=== PATIENT | female | born 1975 | race Caucasian/White ===

== ENCOUNTER 2021-05-22 23:53 | Inpatient (IN) | payer MEDICAID, OTHER ==
[~2021-05-22] VITALS: Ht 165.1 cm; Wt 63.5 kg
[2021-05-23] MEDS ORDERED: VANCOMYCIN IV 1,000 MG in IV DEXTROSE 5% 250 ML IV ONE (00:15)
[2021-05-23] MEDS ORDERED: PIPERACILLIN SODIUM/TAZOBACTAM 3.375 G in IV DEXTROSE 5% 50 ML IV ONE (00:15)
[2021-05-23] MEDS ORDERED: IV NORMAL SALINE 1000 ML BAG IV ONE (00:15)
[2021-05-23] MEDS ORDERED: GABA600T12 GT (00:19)
[2021-05-23] MEDS ORDERED: PIPERACILLIN/TAZOBACTAM/D5W 50 ML IV ONE ×2 (00:28→05:26)
[2021-05-23] MEDS ORDERED: VANCOMYCIN IV 200 ML ONE (00:28)
[2021-05-23 00:46] LABS: HEMATOCRIT 25.4 % (31.2-41.9); MEAN CORPUSCULAR HEMOGLOBIN 24.6 uug (24.7-32.8); MEAN CORPUSCULAR VOLUME 77.5 fL (75.5-95.3); PLATELET COUNT (AUTO) 333 K/uL (179-408)
--- NOTE | 2021-05-23 01:15 | NUR ---
Lilo elliott in [facility] - 05/23/21 at [address] Thibodeaux on panel call with Xander Ontiveros DNP.
[2021-05-23 01:19] LABS: ALANINE AMINOTRANSFERASE 47 U/L (14-59); ALKALINE PHOSPHATASE 178 U/L (50-136); ASPARTATE AMINOTRANSFERASE 39 U/L (15-37); BILIRUBIN,DIRECT 0.1 mg/dL (0.0-0.2); BILIRUBIN,TOTAL 0.4 mg/dL (0.2-1.0); CARBON DIOXIDE 36 mmol/L (21-32); CHLORIDE 98 mmol/L (98-107); CREATININE 0.4 mg/dL (0.6-1.3); GLUCOSE 113 mg/dL (74-106); TOTAL PROTEIN, SERUM 7.4 g/dL (6.4-8.2); UREA NITROGEN, BLOOD 14 mg/dL (7-18)
[2021-05-23 01:29] LABS: *BILIRUBIN,URIN NEGATIVE (NEGATIVE); *BLOOD, URINE NEGATIVE (NEGATIVE); *CLARITY,URINE CLOUDY (CLEAR); *COLOR,URINE YELLOW (YELLOW); *KETONES,URINE NEGATIVE (NEGATIVE); LEUKOCYTE ESTERASE ,URINE NEGATIVE (NEGATIVE); NITRITE, URINE POSITIVE (NEGATIVE); UGLUCOSE NEGATIVE (NEGATIVE)
--- NOTE | 2021-05-23 01:30 | NUR ---
RT at bedside to clean and suction trach of patient.
[2021-05-23 01:41] LABS: BACTERIA,URINE MANY /HPF (NONE SEEN); RBC,URINE 0-3 /HPF (0-3); SQUAMOUS EPITHELIAL CELL,UR FEW /HPF (NONE SEEN); WBC,URINE 0-3 /HPF (0-3)
[2021-05-23] MEDS ORDERED: ACET-73 GT (02:01)
[2021-05-23] MEDS ORDERED: ACET325T53 GT (02:01)
[2021-05-23] MEDS ORDERED: IPRA3AMP22 IH (02:01)
[2021-05-23] MEDS ORDERED: ONDA4TAB5 GT (02:01)
[2021-05-23] MEDS ORDERED: APIX5TAB4 GT (02:01)
[2021-05-23] MEDS ORDERED: OMEP20CA15 GT (02:01)
[2021-05-23] MEDS ORDERED: SODI1TAB3 PO (02:01)
[2021-05-23] MEDS ORDERED: SENN-261 GT (02:01)
[2021-05-23] MEDS ORDERED: MORP30TA PO (02:01)
[2021-05-23] MEDS ORDERED: DOCU100C36 GT (02:01)
[2021-05-23] MEDS ORDERED: FERR325T28 GT (02:01)
[2021-05-23] MEDS ORDERED: MULT-594 GT (02:01)
[2021-05-23] MEDS ORDERED: ASCO500P18 GT (02:01)
[2021-05-23] MEDS ORDERED: MODA100T29 GT (02:01)
[2021-05-23] MEDS ORDERED: INSU100V28 (02:01)
[2021-05-23] MEDS ORDERED: METO25TA6 GT (02:01)
[2021-05-23] MEDS ORDERED: BISA10SU61 RC (02:01)
[2021-05-23] MEDS ORDERED: CHLO473M3 PO (02:01)
[2021-05-23] MEDS ORDERED: ZINC220C6 GT (02:01)
[2021-05-23] MEDS ORDERED: OXYC10TA49 GT (02:01)
[2021-05-23] MEDS ORDERED: Z GUARD REMEDY PASTE 57 GM TUBE TOP PRN (02:15)
[2021-05-23] MEDS ORDERED: ACETAMINOPHEN 650 MG SUPP.RECT RC PRN (02:15)
[2021-05-23] MEDS ORDERED: ONDANSETRON 4 MG/2 ML VIAL IV PRN (02:15)
--- NOTE | 2021-05-23 02:24 | NUR ---
Patient will be assigned to room 317.
--- NOTE | 2021-05-23 02:38 | NUR ---
Report given to LAURITA Jacinto.
--- NOTE | 2021-05-23 03:10 | NUR ---
Pt. admitted to telemetry 317, under care of BRUCE Kent. Belongs List completed
[2021-05-23] MEDS: ENOXAPARIN SODIUM 40 MG/0.4 ML DISP.SYRIN SQ SCH ×2 (04:26→21:32)
[2021-05-23] MEDS ORDERED: PIPERACILLIN SODIUM/TAZOBACTAM 3.375 G in IV DEXTROSE 5% 50 ML IV SCH (06:00)
--- NOTE | 2021-05-23 06:56 | NUR ---
Admitted 45 y/o female from ER to Tele. She is non-verbal, responds to touch/pain, bedrest. On trach to mask at 5 lpm, saturating at 100%. Kept HOB elevated. Trach suctioned with secretions noted, dressing and mask changed by RT, G-tube remains intact. Skin assessment done, pictures taken, and placed in chart. Kept clean, dry, and comfortable. All needs attended. Will endorse for continuity of care.
[2021-05-23 08:27] VITALS: BP 117/64
[2021-05-23] MEDS: PANTOPRAZOLE SODIUM 40 MG VIAL IV SCH (08:28)
--- NOTE | 2021-05-23 09:50 | NUR ---
MORNING CARE PROVIDED TO PATIENT, TOLERATED WELL. SHE IS AWAKE, BUT IS NOT VERBALLY RESPONSIVE. HOWEVER, APPEARS TO RESPOND TO BOTH VERBAL/TACTILE STIMULI BY LOOKING AT NURSE OR MOVING ARMS. REQUIRES FREQUENT SUCTIONING ON TRACH AND ORAL, WITH ORDERS OF Q2H ORAL CARE. AT THIS TIME, DR. MONTES NOTIFIED ABOUT ASYMPTOMATIC SINUS TACHYCARDIA ON MONITOR FROM 110-120, REST OF VITALS NORMAL RECORDED. ALSO REPORTED ABOUT COVID-19 CONCERNS AND SLIGHTLY ELEVATED TROPONIN 0.105. RECEIVED ORDERS FOR COVID 19 PCR, TROPONIN EVERY 6H, CARDIO CONSULT AND NS 75 CC/HR. NOTED AND WILL CARRY OUT.
[2021-05-23] MEDS: IV NS 1000 ML 1,000 ML IV PRN (10:30)
--- NOTE | 2021-05-23 11:20 | NUR ---
DR MONTES NOTIFIED THAT PATIENT STILL PENDING MED RECON/GT FEEDING/INSULIN PROTOCOLS. ORDERED NUTREN 2.0 55 CC/HR X Addendum: 05/23/21 at 1706 by RUT FRIAS RN 20 HOURS. WITH REGULAR INSULIN SLIDING SCALE MOD DOSE EVERY 6 HOURS. NOTED AND WILL CARRYOUT.
[2021-05-23] MEDS ORDERED: DEXTROSE 50% 50 ML DISP.SYRIN IV PRN (11:30)
[2021-05-23 11:34] VITALS: BP 121/66
[2021-05-23] MEDS ORDERED: NUTREN 2.0 1,000 ML LIQUID GT PRN (12:00)
[2021-05-23] MEDS: PIPERACILLIN SODIUM/TAZOBACTAM 3.375 G in IV DEXTROSE 5% 50 ML IV SCH ×3 (12:59→23:07)
[2021-05-23] MEDS: NUTREN 2.0 1,000 ML LIQUID GT PRN (12:59)
[2021-05-23] MEDS: BLOOD SUGAR DIAGNOSTIC 1 EACH STRIP VI SCH ×3 (12:59→23:38)
[2021-05-23] MEDS: VANCOMYCIN IV 750 MG in IV DEXTROSE 5% 250 ML IV SCH (14:00)
[2021-05-23 14:52] VITALS: BP 121/64
--- NOTE | 2021-05-23 15:00 | NUR ---
RT NOTIFIED TO CHECK ON PT, SINCE FREQUENT SUCTIONING IS REQUIRED. RT APPLIED HUMIDIFIER ON O2, AND CONNECTED TRACH TO SUCTION. PT IS TOLERATING THIS WELL.
--- NOTE | 2021-05-23 19:00 | NUR ---
PATIENT EYES OPEN, HOB ELEVATED, NO S/S OF SOB, SUCTIONED FREQUENTLY DUE TO EXTRA TRACHEAL SECRETIONS, YELLOW COLOR SPUTUM, ON GTF TOLERATE WELL NO RESIDUAL NOTED, NO NAUSEA NO VOMITING NOTED, LEFT ARM SWELLING KEPT IT ELEVATED WITH PILLOW, KEPT BILATERAL FEET ELEVATED WITH PILLOW, NOTED WITH FACIAL GRIMACY, SON AT BEDSIDE, KEPT COMFORTABLE.
[2021-05-23 20:18] VITALS: BP 132/67
--- NOTE | 2021-05-23 22:58 | NUR ---
PATIENT HAS FACIAL GRIMACY, REQUEST TO AGUEDA KERZUMA TYLENOL VIA GT. WITH ORDER.
[2021-05-23] MEDS: ACETAMINOPHEN 650 MG/20.3 ML LIQUID UDC GT PRN (23:07)
[2021-05-23] MEDS: INSULIN REGULAR, HUMAN 300 UNIT/3 ML VIAL SQ PRN (23:46)
[2021-05-24] VITALS (9 sets, daily range): BP systolic 126–138; BP diastolic 59–85
[2021-05-24] MEDS: VANCOMYCIN IV 750 MG in IV DEXTROSE 5% 250 ML IV SCH (00:02)
--- NOTE | 2021-05-24 04:23 | NUR ---
PATIENT TROPONIN 0.080 LAST MIDNIGHT, DR MONTES ORDERED TO REPEAT TROPONIN IN AM IF TROPONIN STILL HIGH PER INSTRUCTIONS.
[2021-05-24] MEDS: PIPERACILLIN SODIUM/TAZOBACTAM 3.375 G in IV DEXTROSE 5% 50 ML IV SCH ×4 (05:27→23:21)
[2021-05-24] MEDS: BLOOD SUGAR DIAGNOSTIC 1 EACH STRIP VI SCH ×4 (06:00→23:37)
[2021-05-24] MEDS: INSULIN REGULAR, HUMAN 300 UNIT/3 ML VIAL SQ PRN ×3 (06:32→23:38)
[2021-05-24 07:26] LABS: MEAN CORPUSCULAR HEMOGLOBIN 24.5 uug (24.7-32.8); MEAN CORPUSCULAR VOLUME 76.9 fL (75.5-95.3); PLATELET COUNT (AUTO) 293 K/uL (179-408)
[2021-05-24 07:57] LABS: HEMATOCRIT 20.8 % (31.2-41.9)
--- NOTE | 2021-05-24 08:00 | NUR ---
CALLED [facility] FOR CRITICAL LAB RESULT DOCUMENTED ON FLOWSHEET/ON HOLD.
[2021-05-24 08:05] LABS: THYROID STIMULATING HORMONE 1.934 mIU/mL (0.358-3.740)
--- NOTE | 2021-05-24 08:14 | NUR ---
DR MONTSE NOTIFIED ABOUT HEMOGLOBIN/HEMATOCRIT CRITICAL RESULTS FROM LAB. WITH NEW ORDERS TO TRANSFUSE PRBC X 1 UNIT/OBTAIN CONSENT FROM FAMILY. ALSO NOTIFIED ABOUT TROPONIN LEVELS/PENDING CARDIO CONSULT/PT SINIS TACHYCARDIA, ACKNOWLEDGED, NO NEW ORDERS.
[2021-05-24 08:25] LABS: ALANINE AMINOTRANSFERASE 36 U/L (14-59); ALKALINE PHOSPHATASE 145 U/L (50-136); ASPARTATE AMINOTRANSFERASE 22 U/L (15-37); BILIRUBIN,TOTAL 0.3 mg/dL (0.2-1.0); CARBON DIOXIDE 36 mmol/L (21-32); CHLORIDE 100 mmol/L (98-107); CREATININE 0.3 mg/dL (0.6-1.3); GLUCOSE 144 mg/dL (74-106); PHOSPHOROUS 3.9 mg/dL (2.5-4.9); POTASSIUM 3.4 mmol/L (3.5-5.1); TOTAL PROTEIN, SERUM 6.3 g/dL (6.4-8.2); UREA NITROGEN, BLOOD 13 mg/dL (7-18)
[2021-05-24 08:41] LABS: CHOLESTEROL 150 mg/dL (<200); HDL CHOLESTEROL 35 mg/dL (40-60); TRIGLYCERIDES 134 MG/DL (30-150)
[2021-05-24] MEDS ORDERED: POTASSIUM CHLORIDE 20 MEQ POWDER PACKET GT ONE (09:15)
[2021-05-24] MEDS: PANTOPRAZOLE SODIUM 40 MG VIAL IV SCH (09:25)
--- NOTE | 2021-05-24 09:40 | NUR ---
GEN/ROGELIO AT BEDSIDE. INFORMED CONSENT FOR BLOOD TRANSFUSION OBTAINED.WITNESSED BY DOCUMENTING RN. LAB WAS NOTIFIED. PER LAB, 2ND TYPE AND SCREEN IS PENDING. BLOOD BANK WILL BE IN THE HOSPITAL THIS PM. PT HAS STABLE VS, NO APPARENT ACTIVE BLEEDING AT THIS TIME.
[2021-05-24] MEDS: NUTREN 2.0 1,000 ML LIQUID GT PRN (12:33)
[2021-05-24] MEDS ORDERED: NUTREN 2.0 1,000 ML LIQUID GT PRN (13:39)
[2021-05-24] MEDS: VANCOMYCIN IV 1,000 MG in IV DEXTROSE 5% 250 ML IV SCH ×2 (13:54→22:06)
[2021-05-24 14:38] LABS: EOSINOPHILS % (MANUAL) 3 % (0-8); LYMPHOCYTES % (MANUAL) 16 % (20-40); MONOCYTES % (MANUAL) 7 % (2-10); NEUTROPHILS % (MANUAL) 74 % (42-75)
--- NOTE | 2021-05-24 19:15 | NUR ---
RECEIVED PATIENT AWAKE HOB ELEVATED, NO S/S OF SOB NO S/S OF CHEST PAIN, TELE MONITOR SINUS TACHY 126, SAT 100% AT 5LITERS. PATIENT CURRENT HAVING BLOOD TRANSFUSION, TOLERATE WELL NO SOB NO CHEST CONGESTION NOTED. PATIENT HAS NO S/S OF PAIN AT THIS TIME.
--- NOTE | 2021-05-24 20:23 | NUR ---
PATIENT SEEN BY RT AND OXYGEN LEVEL AT 3 LITERS PER MIN, SAT 100%, TRANSFUSED 1 UNIT PRBC TOLERATE WELL, NO ADVERSE REACTION NOTED, CONT TO MONITOR.
--- NOTE | 2021-05-24 20:37 | NUR ---
TRANSFUSED 1 UNIT PRBC TOLERATE WELL NO ADVERSE REACTION NOTED, CONT TO MONITOR.
[2021-05-24] MEDS: ACETAMINOPHEN 650 MG/20.3 ML LIQUID UDC GT PRN (22:06)
[2021-05-24] MEDS: DOCUSATE SODIUM 100 MG/10 ML LIQUID UDC GT SCH (22:07)
[2021-05-24] MEDS: ENOXAPARIN SODIUM 40 MG/0.4 ML DISP.SYRIN SQ SCH (22:40)
[2021-05-25] VITALS: BP 139/49
[2021-05-25] MEDS: PIPERACILLIN SODIUM/TAZOBACTAM 3.375 G in IV DEXTROSE 5% 50 ML IV SCH ×3 (05:18→17:24)
[2021-05-25 06:00] VITALS: BP 130/79
[2021-05-25] MEDS: BLOOD SUGAR DIAGNOSTIC 1 EACH STRIP VI SCH ×4 (06:42→23:32)
[2021-05-25 06:45] LABS: CARBON DIOXIDE 36 mmol/L (21-32); CHLORIDE 101 mmol/L (98-107); CREATININE 0.3 mg/dL (0.6-1.3); GLUCOSE 147 mg/dL (74-106); POTASSIUM 3.6 mmol/L (3.5-5.1); UREA NITROGEN, BLOOD 10 mg/dL (7-18)
[2021-05-25] MEDS: VANCOMYCIN IV 1,000 MG in IV DEXTROSE 5% 250 ML IV SCH (07:06)
[2021-05-25] MEDS: PANTOPRAZOLE SODIUM 40 MG VIAL IV SCH (08:28)
[2021-05-25] MEDS: DOCUSATE SODIUM 100 MG/10 ML LIQUID UDC GT SCH ×2 (08:28→20:30)
[2021-05-25 12:00] VITALS: BP 141/81
[2021-05-25] MEDS: INSULIN REGULAR, HUMAN 300 UNIT/3 ML VIAL SQ PRN ×3 (12:16→23:35)
--- NOTE | 2021-05-25 15:00 | NUR ---
AWAKE NON VERBAL ALL NEEDS ANTICIPATED AND SATISFIED MAXIMUM ASSIST FOR ALL ADL HOB UP CONTINUE ON ANTIBIOTICS ORDERED WITH NO ADVERSE OR ALLERGIC REACTIONS AT THIS TIME LEFT ARM SWOLLEN ESPECIALLY THE HAND AND WITH NECROTIC FINGERS ELEVATED ON THE PILLOW LEFT LEG TOES ALSO NECROTIC GENERAL CONDITION IS POOR WILL CONTINUE TO OBSERVE.
[2021-05-25 16:17] VITALS: BP 135/66
[2021-05-25] MEDS: VANCOMYCIN IV 1,250 MG in IV DEXTROSE 5% 250 ML IV SCH ×2 (16:19→23:13)
[2021-05-25 17:48] LABS: CARBON DIOXIDE 33 mmol/L (21-32); CHLORIDE 101 mmol/L (98-107); CREATININE 0.4 mg/dL (0.6-1.3); GLUCOSE 150 mg/dL (74-106); POTASSIUM 3.5 mmol/L (3.5-5.1); UREA NITROGEN, BLOOD 9 mg/dL (7-18)
--- NOTE | 2021-05-25 18:00 | NUR ---
FIRST STEP MATTRASS APPLIED TO BED ORDERED PATIENT TURNED AND REPOSITIONED Q2H GT FEEDINGS IN PROGRESS TOLERATED WELL TRACH INTACT CONNECTED TO O2 QT 3L WITH NO S/S OF SHORTNESS OF BREATH SUCTIONED NEEDED NOT IN DISTRESS AT THIS TIME.
--- NOTE | 2021-05-25 19:30 | NUR ---
RECEIVED PT IN NO ACUTE DISTRESS. IV INTACT. PT IN FIRST STEP MATTRESS. PT TOLERATING GTUBE FEEDING. PT ON 3L OXYGEN . SAFETY AND COMFORT PROVIDED. WILL CONTINUE TO MONITOR.
--- NOTE | 2021-05-25 19:35 | NUR ---
SON AT BEDSIDE.
[2021-05-25 20:21] VITALS: BP 133/64
[2021-05-25] MEDS: ENOXAPARIN SODIUM 40 MG/0.4 ML DISP.SYRIN SQ SCH (20:31)
[2021-05-26] VITALS: BP 144/89
[2021-05-26] MEDS: PIPERACILLIN SODIUM/TAZOBACTAM 3.375 G in IV DEXTROSE 5% 50 ML IV SCH ×4 (00:22→21:26)
[2021-05-26 01:25] LABS: *OCCULT BLOOD STOOL POSITIVE (NEGATIVE)
[2021-05-26] MEDS: ACETAMINOPHEN 650 MG/20.3 ML LIQUID UDC GT PRN (02:11)
--- NOTE | 2021-05-26 02:15 | NUR ---
at 0211h Tylenol 650mg prn given for pt for pain. Pt had facial grimace as a sign of pain. Will continue to monitor.
[2021-05-26] MEDS: IV NS 1000 ML 1,000 ML IV PRN (02:20)
[2021-05-26 04:15] VITALS: BP 116/64
[2021-05-26] MEDS: BLOOD SUGAR DIAGNOSTIC 1 EACH STRIP VI SCH (05:49)
[2021-05-26] MEDS: INSULIN REGULAR, HUMAN 300 UNIT/3 ML VIAL SQ PRN (06:18)
--- NOTE | 2021-05-26 06:28 | NUR ---
PT SLEPT INTERMITTENTLY. PT IN NO ACUTE DISTRESS. PRESCRIBED MEDICATION GIVEN AND PT TOLERATED IT WELL. PT TURNED AND REPOSITIONED. PT PRN SUCTIONING NEEDEDSAFETY AND COMFORT PROVIDED. ALL NEEDS ARE MET. WILL ENDORSE TO INCOMING NURSE FOR CONTINUITY OF CARE.
[2021-05-26 06:33] LABS: HEMATOCRIT 27.3 % (31.2-41.9); MEAN CORPUSCULAR HEMOGLOBIN 24.8 uug (24.7-32.8); MEAN CORPUSCULAR VOLUME 78.6 fL (75.5-95.3); PLATELET COUNT (AUTO) 294 K/uL (179-408)
[2021-05-26 06:44] LABS: CARBON DIOXIDE 34 mmol/L (21-32); CHLORIDE 105 mmol/L (98-107); CREATININE 0.4 mg/dL (0.6-1.3); GLUCOSE 171 mg/dL (74-106); PHOSPHOROUS 4.1 mg/dL (2.5-4.9); UREA NITROGEN, BLOOD 8 mg/dL (7-18)
--- NOTE | 2021-05-26 08:00 | NUR ---
PT nonverbal. Awaiting wound care consult. Pt is in no acute distress. Call light is within reach. Pt on I bed. Gangrene noted on LEFT HAND, L Great toed, and RIGHT FOOT. Heel FLOATED. Turn pt q 2 hrs.
--- NOTE | 2021-05-26 09:00 | NUR ---
both iv site to right wrist and iv site to right hand infiltrated and removed, applied ice to both sites.
[2021-05-26] MEDS: DOCUSATE SODIUM 100 MG/10 ML LIQUID UDC GT SCH ×2 (09:37→21:26)
[2021-05-26] MEDS: VANCOMYCIN IV 1,250 MG in IV DEXTROSE 5% 250 ML IV SCH (09:37)
[2021-05-26] MEDS: PANTOPRAZOLE SODIUM 40 MG VIAL IV SCH (10:03)
--- NOTE | 2021-05-26 10:56 | NUR ---
WOUND CARE CONSULT: PT PRESENTS WITH DRY NECROTIC TISSUE TO RT FOOT, LEFT HAND AND LEFT GREAT TOE, PRESENT ON ADMISSION. NO DRAINAGE NOTED. SURGICAL AND PODIATRY CONSULTS CALLED TO DR MORE CRISTOBAL AND DR PROCTOR. SCARRING NOTED TO POSTERIOR HEAD, PRESENT ON ADMISSION. RECOMMENDATIONS MADE FOR SKIN PROTECTION. DISCUSSED WITH NURSING STAFF. PT IS ON FIRST STEP BASHIR HYLTON AIRLOSS MATTREBIA. IN AGREEMENT WITH PLAN OF CARE.
[2021-05-26 11:53] VITALS: BP 141/80
[2021-05-26] MEDS ORDERED: POTASSIUM CHLORIDE 20 MEQ POWDER PACKET GT ONE ×2 (12:15→16:00)
[2021-05-26] MEDS: GENTAMICIN SULFATE INJ 440 MG in IV DEXTROSE 5% 250 ML IV SCH (12:51)
[2021-05-26 15:56] VITALS: BP 100/79
--- NOTE | 2021-05-26 17:00 | NUR ---
IV site to right wrist infiltrated, ice applied to site. Dr. Gaming made aware with order for midline, midline order in place. Pending midline insertion.
[2021-05-26] MEDS: NUTREN 2.0 1,000 ML LIQUID GT PRN (17:17)
--- NOTE | 2021-05-26 17:30 | NUR ---
Notified DR ellis pt'v iv infiltrated attempted to restart IV unsuccessful. Per DR GARCIA MIDLINE insertion. Notified fur dressing supervisor we need picc line nurse to come in and insert midline.
--- NOTE | 2021-05-26 19:30 | NUR ---
RECEIVED PT IN NO ACUTE DISTRESS. GTUBE FEEDING TOLERATING WELL. OXYGEN AT 3L . PT ON AIR MATTRESS. SAFETY AND COMFORT PROVIDED. WILL CONTINUE TO MONITOR.
[2021-05-26 20:13] VITALS: BP 130/79
--- NOTE | 2021-05-26 20:20 | NUR ---
MIDLINE WAS PUT ON RIGHT UPPER ARM 18G.
[2021-05-26] MEDS: ENOXAPARIN SODIUM 40 MG/0.4 ML DISP.SYRIN SQ SCH (21:26)
[2021-05-27 00:03] VITALS: BP 128/68
--- NOTE | 2021-05-27 01:32 | NUR ---
PATIENT ON CONT T/PIECE @ 3L/M VIA O2 TUBING TO FLOWMETER WITH HUMDIFIER CHANGED, PT STABLE, SUCTION PRN Maxi GUERREROP Addendum: 05/27/21 at 0134 by VICKI JUAREZ RT Amended: Links added.
[2021-05-27] MEDS: VANCOMYCIN IV 1,000 MG in IV DEXTROSE 5% 250 ML IV SCH ×3 (02:10→18:06)
[2021-05-27] MEDS: PIPERACILLIN SODIUM/TAZOBACTAM 3.375 G in IV DEXTROSE 5% 50 ML IV SCH ×4 (03:13→21:06)
[2021-05-27] MEDS: IV NS 1000 ML 1,000 ML IV PRN (03:47)
[2021-05-27 04:13] VITALS: BP 127/60
--- NOTE | 2021-05-27 06:35 | NUR ---
PT SLEPT INTERMITTENTLY. PT IN NO ACUTE RESPIRATORY DISTRESS. PRN SUCTION NEEDED. IV INTACT. DRESSING INTACT.PT TURNED AND REPOSITIONED. PRESCRIBED MEDICATION GIVEN AND PT TOLERATED IT WELL. SAFETY AND COMFORT PROVIDED. ALL NEEDS ARE MET. WILL CONTINUE TO MONITOR.
[2021-05-27 06:46] LABS: HEMATOCRIT 26.9 % (31.2-41.9); MEAN CORPUSCULAR VOLUME 77.7 fL (75.5-95.3); PLATELET COUNT (AUTO) 292 K/uL (179-408)
[2021-05-27 07:04] LABS: ALANINE AMINOTRANSFERASE 40 U/L (14-59); ALKALINE PHOSPHATASE 151 U/L (50-136); ASPARTATE AMINOTRANSFERASE 37 U/L (15-37); BILIRUBIN,TOTAL 0.5 mg/dL (0.2-1.0); CARBON DIOXIDE 37 mmol/L (21-32); CHLORIDE 106 mmol/L (98-107); CREATININE 0.5 mg/dL (0.6-1.3); GLUCOSE 150 mg/dL (74-106); POTASSIUM 3.6 mmol/L (3.5-5.1); UREA NITROGEN, BLOOD 12 mg/dL (7-18)
[2021-05-27] MEDS: DOCUSATE SODIUM 100 MG/10 ML LIQUID UDC GT SCH ×2 (08:12→21:05)
[2021-05-27] MEDS: PANTOPRAZOLE SODIUM 40 MG VIAL IV SCH (08:12)
[2021-05-27 11:32] VITALS: BP 117/81
[2021-05-27] MEDS ORDERED: BISACODYL 10 MG SUPP.RECT RC PRN (12:30)
[2021-05-27] MEDS ORDERED: ALBUTEROL SULFATE 2.5 MG/ 0.5 ML NEBU NEB PRN (12:30)
[2021-05-27] MEDS: GABAPENTIN 300 MG CAPSULE GT SCH ×2 (13:19→16:47)
[2021-05-27] MEDS: METOPROLOL TARTRATE 25 MG TABLET GT SCH ×2 (13:20→21:05)
[2021-05-27] MEDS: GENTAMICIN SULFATE INJ 440 MG in IV DEXTROSE 5% 250 ML IV SCH (13:50)
[2021-05-27 16:00] VITALS: BP 137/80
[2021-05-27] MEDS: ASCORBIC ACID 500 MG TABLET GT SCH (16:47)
[2021-05-27] MEDS: NUTREN 2.0 1,000 ML LIQUID GT PRN (16:59)
[2021-05-27] MEDS ORDERED: MORPHINE SULFATE IR 30 MG TABLET PO PRN (17:00)
--- NOTE | 2021-05-27 18:56 | NUR ---
PT IN NO ACUTE RESPIRATORY DISTRESS. PRN SUCTION NEEDED. IV INTACT. DRESSING INTACT.PT TURNED AND REPOSITIONED. PRESCRIBED MEDICATION GIVEN AND PT TOLERATED IT WELL. SAFETY AND COMFORT PROVIDED. ALL NEEDS ARE MET. WILL ENDORSE TO INCOMING NURSE FOR CONTINUITY OF CARE
[2021-05-27 20:00] VITALS: BP 111/66
[2021-05-27] MEDS: ENOXAPARIN SODIUM 40 MG/0.4 ML DISP.SYRIN SQ SCH (21:06)
[2021-05-28] VITALS: BP 121/80
[2021-05-28] MEDS: IV NS 1000 ML 1,000 ML IV PRN ×2 (01:19→14:54)
[2021-05-28] MEDS: VANCOMYCIN IV 1,000 MG in IV DEXTROSE 5% 250 ML IV SCH ×2 (02:53→15:38)
[2021-05-28 04:00] VITALS: BP 131/68
[2021-05-28] MEDS: PIPERACILLIN SODIUM/TAZOBACTAM 3.375 G in IV DEXTROSE 5% 50 ML IV SCH ×4 (04:29→22:08)
--- NOTE | 2021-05-28 05:48 | NUR ---
Pt slept throughout the night. No distress noted. T-piece connected to 3L of oxygen. Closed suctioned as needed. IV site intact. No other issues or concerns at this time, will endorse to day shift.
[2021-05-28 08:00] VITALS: BP 119/69
[2021-05-28] MEDS: DOCUSATE SODIUM 100 MG/10 ML LIQUID UDC GT SCH ×2 (09:37→20:27)
[2021-05-28] MEDS: PANTOPRAZOLE SODIUM 40 MG VIAL IV SCH (09:37)
[2021-05-28] MEDS: ASCORBIC ACID 500 MG TABLET GT SCH ×2 (09:38→16:22)
[2021-05-28] MEDS: MULTIVITAMINS,THERAPEUTIC TABLET GT SCH (09:38)
[2021-05-28] MEDS: ZINC SULFATE 220 MG CAPSULE GT SCH (09:38)
[2021-05-28] MEDS: SENNOSIDES 1 TABLET GT SCH (09:38)
[2021-05-28] MEDS: MODAFINIL 100 MG TABLET GT SCH (09:38)
[2021-05-28] MEDS: FERROUS SULFATE 300 MG/5 ML LIQUID UDC GT SCH (09:38)
[2021-05-28] MEDS: METOPROLOL TARTRATE 25 MG TABLET GT SCH ×2 (09:39→20:28)
[2021-05-28] MEDS: GABAPENTIN 300 MG CAPSULE GT SCH ×3 (09:40→16:22)
[2021-05-28 11:43] VITALS: BP 143/80
[2021-05-28] MEDS: NUTREN 2.0 1,000 ML LIQUID GT PRN (13:05)
[2021-05-28] MEDS: GENTAMICIN SULFATE INJ 440 MG in IV DEXTROSE 5% 250 ML IV SCH (13:51)
[2021-05-28] MEDS: ACETAMINOPHEN 650 MG/20.3 ML LIQUID UDC GT PRN (14:04)
[2021-05-28 16:00] VITALS: BP 112/69
--- NOTE | 2021-05-28 18:34 | NUR ---
Patient is alert, able to nod when asked. Noted with dry gangrene to toes, right foot and fingers on the left hand. Bedbath done today, mouth care done every 2 hrs, closed suctioning done as needed, tolerated well. Dressing done to both feet as ordered. Consent obtained per MD order for the right foot transmetatarsal amputation, and left foot excisional debridement, Romero signed. Surgery is scheduled todayVanco result 20.5 - Vanco IV was adjusted per pharmacy protocol. IV line intact, midline to DAVE and peripheral line to the right hand, 20G. MD order NPO, per OR 8hrs prior to surgery. Kept patient comfortable and repositioned for perfusion. No distress identified. Frequent visual check done. Kept call light within reach. Assisted with ADLs. All needs attended. Kept environment safe. All due meds given as ordered. Will endorse to the next shift for continuity of care.
[2021-05-28 19:50] LABS: HEMATOCRIT 25.6 % (31.2-41.9); MEAN CORPUSCULAR HEMOGLOBIN 24.4 uug (24.7-32.8); MEAN CORPUSCULAR VOLUME 77.6 fL (75.5-95.3); PLATELET COUNT (AUTO) 311 K/uL (179-408)
[2021-05-28 20:00] VITALS: BP 126/66
[2021-05-28] MEDS: ENOXAPARIN SODIUM 40 MG/0.4 ML DISP.SYRIN SQ SCH (20:28)
[2021-05-29] VITALS (7 sets, daily range): BP systolic 122–137; BP diastolic 62–74
[2021-05-29] MEDS: VANCOMYCIN IV 1,000 MG in IV DEXTROSE 5% 250 ML IV SCH ×2 (03:33→14:17)
[2021-05-29] MEDS: PIPERACILLIN SODIUM/TAZOBACTAM 3.375 G in IV DEXTROSE 5% 50 ML IV SCH ×4 (05:30→22:33)
--- NOTE | 2021-05-29 06:23 | NUR ---
Pt slept intermittently throughout the night. Suctioned as needed. GTube feeding stopped at midnight to prepare for surgery today. Consent signed, checklist done. Pt is in no distress. IV site intact. Safety and comfort provided. Will endorse to day shift.
[2021-05-29 06:36] LABS: MEAN CORPUSCULAR HEMOGLOBIN 24.5 uug (24.7-32.8); MEAN CORPUSCULAR VOLUME 77.6 fL (75.5-95.3); PLATELET COUNT (AUTO) 297 K/uL (179-408)
[2021-05-29 06:57] LABS: BILIRUBIN,TOTAL 0.5 mg/dL (0.2-1.0); CREATININE 0.7 mg/dL (0.6-1.3); MAGNESIUM 2.3 mg/dL (1.8-2.4); PHOSPHOROUS 5.9 mg/dL (2.5-4.9); POTASSIUM 3.5 mmol/L (3.5-5.1); TOTAL PROTEIN, SERUM 7.1 g/dL (6.4-8.2)
[2021-05-29] MEDS ORDERED: LIDOCAINE 0.5% MPF 50 ML VIAL ONE (07:06)
[2021-05-29] MEDS ORDERED: POLYMYXIN B SULFATE 500,000 UNITS VIAL ONE (07:07)
[2021-05-29] MEDS ORDERED: BUPIVACAINE PF 0.5% 30 ML VIAL ONE (07:07)
--- NOTE | 2021-05-29 07:32 | NUR ---
TO OR VIA BED WITH STAFF FOR AMPUTATION RIGHT FOOT TRANSMETATARSAL O2 AT 4L VIA TRACH
[2021-05-29] MEDS ORDERED: FENTANYL CITRATE 100 MCG/2 ML AMPUL ONE (07:46)
[2021-05-29] MEDS: MODAFINIL 100 MG TABLET GT SCH (09:00)
[2021-05-29] MEDS: FERROUS SULFATE 300 MG/5 ML LIQUID UDC GT SCH (09:00)
[2021-05-29] MEDS: SENNOSIDES 1 TABLET GT SCH (09:00)
[2021-05-29] MEDS: MULTIVITAMINS,THERAPEUTIC TABLET GT SCH (09:00)
[2021-05-29] MEDS: ASCORBIC ACID 500 MG TABLET GT SCH ×2 (09:00→16:30)
[2021-05-29] MEDS: PANTOPRAZOLE ORAL SUSPENSION 40 MG SUSPDR.PKT GT SCH (09:00)
[2021-05-29] MEDS: ZINC SULFATE 220 MG CAPSULE GT SCH (09:00)
[2021-05-29] MEDS: GABAPENTIN 300 MG CAPSULE GT SCH ×3 (09:00→16:30)
[2021-05-29] MEDS: DOCUSATE SODIUM 100 MG/10 ML LIQUID UDC GT SCH ×2 (09:00→21:06)
[2021-05-29 09:11] LABS: HEMATOCRIT 24.1 % (31.2-41.9)
[2021-05-29] MEDS ORDERED: ALBUTEROL SULFATE 2.5 MG/3 ML NEBU ONE (09:24)
--- NOTE | 2021-05-29 09:55 | NUR ---
BACK FROM OR RECEIVED REPORT FROM OR STAFF
[2021-05-29] MEDS: METOPROLOL TARTRATE 25 MG TABLET GT SCH ×2 (10:05→21:06)
[2021-05-29] MEDS: GENTAMICIN SULFATE INJ 440 MG in IV DEXTROSE 5% 250 ML IV SCH (13:49)
[2021-05-29] MEDS: IV NS 1000 ML 1,000 ML IV PRN ×2 (13:56→13:58)
[2021-05-29 14:47] LABS: CARBON DIOXIDE 33 mmol/L (21-32); CHLORIDE 104 mmol/L (98-107); CREATININE 0.5 mg/dL (0.6-1.3); GLUCOSE 187 mg/dL (74-106); POTASSIUM 3.7 mmol/L (3.5-5.1); UREA NITROGEN, BLOOD 17 mg/dL (7-18); VANCOMYCIN,TROUGH 17.2 ug/mL (12.0-20.0)
--- NOTE | 2021-05-29 17:49 | NUR ---
CONTINUE WITH IV ANTIBIOTIC ORDERED NO REACTION NOTED. AFEBRILE, SR ON MONITOR
[2021-05-29] MEDS: ENOXAPARIN SODIUM 40 MG/0.4 ML DISP.SYRIN SQ SCH (21:11)
[2021-05-29] MEDS ORDERED: PIPERACILLIN/TAZOBACTAM/D5W 50 ML IV ONE (23:19)
[2021-05-30 00:02] VITALS: BP 141/69
[2021-05-30] MEDS: VANCOMYCIN IV 1,000 MG in IV DEXTROSE 5% 250 ML IV SCH ×2 (02:44→14:10)
[2021-05-30 04:20] VITALS: BP 148/71
[2021-05-30] MEDS: PIPERACILLIN SODIUM/TAZOBACTAM 3.375 G in IV DEXTROSE 5% 50 ML IV SCH ×3 (04:41→14:47)
--- NOTE | 2021-05-30 05:40 | NUR ---
Patient in bed.Awake non verbal with trach in place.No SOB. HOB elevated.Suctioned PRN.Bilateral feet with dressing intact clean and dry.S/p RT foot amputation and Lt foot debridement.Left hand noted with gangrene. Gtube in place with GT feeding running well. Patient incontinent. Pericare provided. Changed and repositioned patient.Midline on right upper arm intact with IVf infusing at 75cc/hr. Continue on ABT therapy as ordered.No a/r noted.
[2021-05-30 06:22] LABS: HEMATOCRIT 26.3 % (31.2-41.9); MEAN CORPUSCULAR HEMOGLOBIN 24.8 uug (24.7-32.8); MEAN CORPUSCULAR VOLUME 78.1 fL (75.5-95.3); PLATELET COUNT (AUTO) 293 K/uL (179-408)
[2021-05-30 07:06] LABS: BILIRUBIN,TOTAL 0.5 mg/dL (0.2-1.0); CREATININE 0.6 mg/dL (0.6-1.3); MAGNESIUM 2.7 mg/dL (1.8-2.4); PHOSPHOROUS 4.9 mg/dL (2.5-4.9); POTASSIUM 3.9 mmol/L (3.5-5.1); TOTAL PROTEIN, SERUM 7.4 g/dL (6.4-8.2)
--- NOTE | 2021-05-30 07:30 | NUR ---
RECEIVED PATIENT IN NO DISTRESS WITH EYES OPEN, WITH O2 AT 4L VIA TRACH SATURATING 98%, ST ON MONITOR, AFEBRILE
[2021-05-30 08:00] VITALS: BP_SYST 145; BP_SYST 153; BP_DIAS 68; BP_DIAS 74
[2021-05-30] MEDS: DOCUSATE SODIUM 100 MG/10 ML LIQUID UDC GT SCH ×2 (08:40→20:51)
[2021-05-30] MEDS: MODAFINIL 100 MG TABLET GT SCH (08:40)
[2021-05-30] MEDS: MULTIVITAMINS,THERAPEUTIC TABLET GT SCH (08:40)
[2021-05-30] MEDS: FERROUS SULFATE 300 MG/5 ML LIQUID UDC GT SCH (08:40)
[2021-05-30] MEDS: ZINC SULFATE 220 MG CAPSULE GT SCH (08:41)
[2021-05-30] MEDS: GABAPENTIN 300 MG CAPSULE GT SCH ×3 (08:41→17:00)
[2021-05-30] MEDS: PANTOPRAZOLE ORAL SUSPENSION 40 MG SUSPDR.PKT GT SCH (08:41)
[2021-05-30] MEDS: ASCORBIC ACID 500 MG TABLET GT SCH ×2 (08:41→17:00)
[2021-05-30] MEDS: METOPROLOL TARTRATE 25 MG TABLET GT SCH ×2 (08:43→20:51)
[2021-05-30] MEDS: SENNOSIDES 1 TABLET GT SCH (08:44)
[2021-05-30] MEDS: IV NS 1000 ML 1,000 ML IV PRN (09:26)
[2021-05-30] MEDS ORDERED: METOPROLOL TARTRATE 25 MG TABLET GT ONE (10:30)
--- NOTE | 2021-05-30 12:00 | NUR ---
KEPT PATIENT COMFORTABLE POST AM CARE. CONTINUE WITH IV ANTIBIOTICS. NO REACTION NOTED
[2021-05-30] MEDS: GENTAMICIN SULFATE INJ 440 MG in IV DEXTROSE 5% 250 ML IV SCH (12:49)
--- NOTE | 2021-05-30 14:04 | NUR ---
PATIENT PREPPED FOR CT ABD/PELVIS AND CTA CHEST. CONSENT OBTAINED FROM
[2021-05-30 16:00] VITALS: BP 121/67
[2021-05-30] MEDS ORDERED: IOHEXOL 350 100 ML INFUS..BTL ONE (17:49)
[2021-05-30] MEDS ORDERED: IV NORMAL SALINE 250 ML IV ONE (17:49)
[2021-05-30] MEDS ORDERED: SWABABLE VALVE TRANSFER SET EA MC ONE (17:49)
[2021-05-30 19:54] VITALS: BP 127/63
[2021-05-30] MEDS: ENOXAPARIN SODIUM 40 MG/0.4 ML DISP.SYRIN SQ SCH (20:55)
[2021-05-30] MEDS: CEFEPIME HCL 2 G in IV DEXTROSE 5% 100 ML IV SCH (21:05)
[2021-05-31 00:40] VITALS: BP 130/64
[2021-05-31] MEDS: ACETAMINOPHEN 650 MG/20.3 ML LIQUID UDC GT PRN ×2 (02:53→20:54)
--- NOTE | 2021-05-31 03:11 | NUR ---
Received call from radiologist informing that they will notify Dr.Sam Ibarra regarding patient's critical CTa chest result.
[2021-05-31] MEDS: IV NS 1000 ML 1,000 ML IV PRN ×2 (04:08→21:02)
[2021-05-31 04:33] VITALS: BP 131/66
[2021-05-31] MEDS ORDERED: ENOXAPARIN SODIUM 60 MG/0.6 ML DISP.SYRIN SQ SCH ×2 (05:00→07:30)
[2021-05-31] MEDS: CEFEPIME HCL 2 G in IV DEXTROSE 5% 100 ML IV SCH ×3 (05:02→21:10)
--- NOTE | 2021-05-31 06:01 | NUR ---
Patient resting in bed on T-piece at 4LPM .Trach intact.Suctioned PRN .Gtube in place. GT feeding tolerated well. No n/v.Zachary. feet with dressing clean and dry. Offload zachary heels.Continue on ATB therapy. No a/r noted. Pericare rendered.Changed and repositioned.
[2021-05-31 06:58] LABS: CREATININE 0.6 mg/dL (0.6-1.3); POTASSIUM 3.8 mmol/L (3.5-5.1)
--- NOTE | 2021-05-31 07:30 | NUR ---
received in bed eyes open able to track a little but nonverbal. hob elevated. trach is midline intact and patent. breathing even and non labored. no sob noted. gt intact and patent, off at this time. left arm elevated. bilateral feet offloaded with dressing on. s/p right foot amputation. no bleeding noted. iv intact hydration ongoing. pt appears comfortable. no s/sx of pain. will continue to monitor
[2021-05-31] MEDS: DOCUSATE SODIUM 100 MG/10 ML LIQUID UDC GT SCH ×2 (08:32→20:54)
[2021-05-31] MEDS: PANTOPRAZOLE ORAL SUSPENSION 40 MG SUSPDR.PKT GT SCH (08:32)
[2021-05-31] MEDS: FERROUS SULFATE 300 MG/5 ML LIQUID UDC GT SCH (08:32)
[2021-05-31] MEDS: MODAFINIL 100 MG TABLET GT SCH (08:32)
[2021-05-31] MEDS: ZINC SULFATE 220 MG CAPSULE GT SCH (08:33)
[2021-05-31] MEDS: ASCORBIC ACID 500 MG TABLET GT SCH ×2 (08:33→17:11)
[2021-05-31] MEDS: MULTIVITAMINS,THERAPEUTIC TABLET GT SCH (08:33)
[2021-05-31] MEDS: GABAPENTIN 300 MG CAPSULE GT SCH ×3 (08:33→17:12)
--- NOTE | 2021-05-31 08:33 | NUR ---
Dr. Gonzalezian in to see the patient. Dressing changed done on both feet, order not to change right foot dressing, may change left foot dressing. No bleeding noted. Right foot sutures intact. Will continue to monitor.
[2021-05-31] MEDS: METOPROLOL TARTRATE 25 MG TABLET GT SCH ×2 (08:38→20:59)
[2021-05-31] MEDS: SENNOSIDES 1 TABLET GT SCH (08:51)
[2021-05-31 11:43] VITALS: BP 144/75
[2021-05-31] MEDS: NUTREN 2.0 1,000 ML LIQUID GT PRN (12:18)
--- NOTE | 2021-05-31 12:18 | NUR ---
nutren feeding barcode not scanning. manual barcode put in.
[2021-05-31] MEDS: VANCOMYCIN IV 1,000 MG in IV DEXTROSE 5% 250 ML IV SCH (12:39)
[2021-05-31 16:35] VITALS: BP 136/80
--- NOTE | 2021-05-31 18:41 | NUR ---
in bed hob elevated, son sitting at bedside. trach is intact and patent no respiratory distress. sleeping comfortably. left hand elevated. no sob noted. gt intact and patent feeding tolerated. due meds given and tolerated well. changed and repositioned prn. suctioned prn. kept comfortable. needs attended. safety measures maintained. Addendum: 05/31/21 at 1857 by WILFREDO MARSHALL RN sinus tachy on tele at 111bpm
--- NOTE | 2021-05-31 19:30 | NUR ---
RECEIVE PT IN NO ACUTE DISTRESS.FAMILY AT BEDSIDE. PT TOLERATING GTUBE FEEDING. IV INTACT. PT ON 4L TRACH COLLAR. SAFETY AND COMFORT PROVIDED.WILL CONTINUE TO MONITOR.
[2021-05-31 20:00] VITALS: BP 115/54
[2021-05-31] MEDS: APIXABAN 2.5 MG TABLET PO SCH (20:55)
[2021-06-01] VITALS: BP 116/50
[2021-06-01] MEDS: VANCOMYCIN IV 1,000 MG in IV DEXTROSE 5% 250 ML IV SCH ×2 (01:04→12:24)
[2021-06-01 04:00] VITALS: BP 107/55
[2021-06-01] MEDS: CEFEPIME HCL 2 G in IV DEXTROSE 5% 100 ML IV SCH ×3 (05:35→21:56)
--- NOTE | 2021-06-01 06:04 | NUR ---
PT SLEPT INTERMITTENTLY. PT IN NO ACUTE DISTRESS. VS WNL. PT STABLE.PRESCRIBED MEDICATION GIVEN AND PT TOLERATED IT WELL. IV INTACT. TYLENOL 650 MG PRN GIVEN AT 2053H FOR PAIN. PT TURNED AND REPOSITIONED.SUCTION PT PRN. LEFT DRESSING CHANGED. LEFT HAND ELEVATED. SAFETY AND COMFORT PROVIDED. ALL NEEDS ARE MET. WILL ENDORSE TO INCOMING NURSE FOR CONTINUITY OF CARE.
[2021-06-01 07:47] VITALS: BP 137/64
[2021-06-01] MEDS: ACETAMINOPHEN 650 MG/20.3 ML LIQUID UDC GT PRN (08:03)
[2021-06-01] MEDS: MULTIVITAMINS,THERAPEUTIC TABLET GT SCH (08:03)
[2021-06-01] MEDS: PANTOPRAZOLE ORAL SUSPENSION 40 MG SUSPDR.PKT GT SCH (08:03)
[2021-06-01] MEDS: ZINC SULFATE 220 MG CAPSULE GT SCH (08:03)
[2021-06-01] MEDS: GABAPENTIN 300 MG CAPSULE GT SCH ×3 (08:03→16:38)
[2021-06-01] MEDS: DOCUSATE SODIUM 100 MG/10 ML LIQUID UDC GT SCH ×2 (08:04→20:35)
[2021-06-01] MEDS: SENNOSIDES 1 TABLET GT SCH (08:04)
[2021-06-01] MEDS: MODAFINIL 100 MG TABLET GT SCH (08:04)
[2021-06-01] MEDS: ASCORBIC ACID 500 MG TABLET GT SCH ×2 (08:04→16:38)
[2021-06-01] MEDS: FERROUS SULFATE 300 MG/5 ML LIQUID UDC GT SCH (08:04)
[2021-06-01] MEDS: APIXABAN 2.5 MG TABLET PO SCH ×2 (08:05→20:37)
[2021-06-01] MEDS: METOPROLOL TARTRATE 25 MG TABLET GT SCH ×2 (08:06→20:36)
--- NOTE | 2021-06-01 13:28 | NUR ---
notify DR. Gaming regarding pt vanco trough 52.4. No orders.
[2021-06-01 15:15] VITALS: BP 157/62
[2021-06-01] MEDS: NUTREN 2.0 1,000 ML LIQUID GT PRN (16:39)
[2021-06-01] MEDS: IV NS 1000 ML 1,000 ML IV PRN (16:42)
--- NOTE | 2021-06-01 18:09 | NUR ---
PT IN NO ACUTE DISTRESS. IV INTACT. PT ON MEDSURG. SON AT BEDSIDE. SAFETY AND COMFORT PROVIDED. PT TURNED AND REPOSITIONED. PT DRESSING CHANGED ON LEFT TOE. ELEVATE LEFT HAND. GTUBE FEEDING TOLERATED.SUCTION PRN NEEDED. WILL CONTINUE ENDORSE TO INCOMING NURSE FOR CONTINUITY OF CARE.
[2021-06-01 20:00] VITALS: BP 126/66
--- NOTE | 2021-06-02 01:25 | NUR ---
Received pt on bed with no respiratory distress noted. Family member at bedside. G-tube feeding Nutren at 55 ml/her, tolerated well. For strict turning and repositioning. IV vanco held d/t to elevated vancothrough. Dressing on feet remains intact.Midline on DAVE patent and infusing well with NS at 75 ml/hr. Heplock on R hand also intact. All needs anticipated and attended. Frequent visual checks done. Will continue to monitor.
[2021-06-02] MEDS: VANCOMYCIN IV 1,000 MG in IV DEXTROSE 5% 250 ML IV SCH ×2 (02:21→13:15)
[2021-06-02 04:00] VITALS: BP 132/66
[2021-06-02] MEDS: CEFEPIME HCL 2 G in IV DEXTROSE 5% 100 ML IV SCH ×3 (05:36→21:03)
--- NOTE | 2021-06-02 06:23 | NUR ---
Pt on bed with no respiratory distress noted. Nutren at 55 ml/her, tolerated well. Turned and repositioned PRN. G-tube feeding stopped at 0600H as ordered. Suctioning PRN done. All needs anticipated and attended. Frequent visual checks done. Will endorse to next shift for continuity of care.
[2021-06-02 06:49] LABS: HEMATOCRIT 22.2 % (31.2-41.9); MEAN CORPUSCULAR HEMOGLOBIN 25.6 uug (24.7-32.8); MEAN CORPUSCULAR VOLUME 76.7 fL (75.5-95.3); PLATELET COUNT (AUTO) 275 K/uL (179-408)
[2021-06-02 07:16] LABS: ALANINE AMINOTRANSFERASE 35 U/L (14-59); ALKALINE PHOSPHATASE 130 U/L (50-136); ASPARTATE AMINOTRANSFERASE 33 U/L (15-37); BILIRUBIN,TOTAL 0.4 mg/dL (0.2-1.0); CARBON DIOXIDE 33 mmol/L (21-32); CHLORIDE 100 mmol/L (98-107); CREATININE 0.5 mg/dL (0.6-1.3); GLUCOSE 165 mg/dL (74-106); MAGNESIUM 2.2 mg/dL (1.8-2.4); PHOSPHOROUS 3.8 mg/dL (2.5-4.9); POTASSIUM 3.3 mmol/L (3.5-5.1); TOTAL PROTEIN, SERUM 7.3 g/dL (6.4-8.2); UREA NITROGEN, BLOOD 16 mg/dL (7-18)
[2021-06-02] MEDS ORDERED: POTASSIUM CHLORIDE 20 MEQ POWDER PACKET GT ONE (07:30)
[2021-06-02] MEDS: PANTOPRAZOLE ORAL SUSPENSION 40 MG SUSPDR.PKT GT SCH (08:49)
[2021-06-02] MEDS: DOCUSATE SODIUM 100 MG/10 ML LIQUID UDC GT SCH ×2 (08:49→20:39)
[2021-06-02] MEDS: GABAPENTIN 300 MG CAPSULE GT SCH ×3 (08:49→18:00)
[2021-06-02] MEDS: FERROUS SULFATE 300 MG/5 ML LIQUID UDC GT SCH (08:49)
[2021-06-02] MEDS: MODAFINIL 100 MG TABLET GT SCH (08:50)
[2021-06-02] MEDS: SENNOSIDES 1 TABLET GT SCH (08:50)
[2021-06-02] MEDS: ZINC SULFATE 220 MG CAPSULE GT SCH (08:50)
[2021-06-02] MEDS: ASCORBIC ACID 500 MG TABLET GT SCH ×2 (08:50→18:01)
[2021-06-02] MEDS: MULTIVITAMINS,THERAPEUTIC TABLET GT SCH (08:50)
[2021-06-02] MEDS: METOPROLOL TARTRATE 25 MG TABLET GT SCH ×2 (09:05→20:40)
[2021-06-02] MEDS: APIXABAN 2.5 MG TABLET PO SCH ×2 (09:06→20:39)
[2021-06-02] MEDS: POTASSIUM CHLORIDE 50 ML IV SCH ×2 (09:09→12:08)
[2021-06-02 10:55] VITALS: BP 131/65
[2021-06-02 15:28] VITALS: BP 148/66
[2021-06-02] MEDS: IV NS 1000 ML 1,000 ML IV PRN (18:18)
--- NOTE | 2021-06-02 18:45 | NUR ---
Informed Lisa Dow NP regarding Hgb of 7.4 with no new order at this time.
[2021-06-02 20:00] VITALS: BP 125/64
[2021-06-02] MEDS: ACETAMINOPHEN 650 MG/20.3 ML LIQUID UDC GT PRN (20:43)
[2021-06-03] MEDS: VANCOMYCIN IV 1,000 MG in IV DEXTROSE 5% 250 ML IV SCH ×2 (00:53→12:30)
[2021-06-03 04:00] VITALS: BP 110/54
[2021-06-03] MEDS: CEFEPIME HCL 2 G in IV DEXTROSE 5% 100 ML IV SCH ×3 (05:18→21:20)
--- NOTE | 2021-06-03 06:54 | NUR ---
Pt rested well in between care; dressing changed to left foot; tolerated GTF; needs attended.
[2021-06-03] MEDS: FERROUS SULFATE 300 MG/5 ML LIQUID UDC GT SCH (08:45)
[2021-06-03] MEDS: DOCUSATE SODIUM 100 MG/10 ML LIQUID UDC GT SCH ×2 (08:45→20:13)
[2021-06-03] MEDS: ASCORBIC ACID 500 MG TABLET GT SCH ×2 (08:46→16:09)
[2021-06-03] MEDS: MULTIVITAMINS,THERAPEUTIC TABLET GT SCH (08:46)
[2021-06-03] MEDS: MODAFINIL 100 MG TABLET GT SCH (08:46)
[2021-06-03] MEDS: SENNOSIDES 1 TABLET GT SCH (08:46)
[2021-06-03] MEDS: PANTOPRAZOLE ORAL SUSPENSION 40 MG SUSPDR.PKT GT SCH (08:46)
[2021-06-03] MEDS: GABAPENTIN 300 MG CAPSULE GT SCH ×3 (08:46→16:09)
[2021-06-03] MEDS: APIXABAN 2.5 MG TABLET PO SCH ×2 (08:46→20:14)
[2021-06-03] MEDS: ZINC SULFATE 220 MG CAPSULE GT SCH (08:46)
[2021-06-03] MEDS: METOPROLOL TARTRATE 25 MG TABLET GT SCH ×2 (08:47→20:13)
[2021-06-03 09:35] LABS: HEMATOCRIT 23.8 % (31.2-41.9); MEAN CORPUSCULAR HEMOGLOBIN 25.3 uug (24.7-32.8); MEAN CORPUSCULAR VOLUME 76.6 fL (75.5-95.3); PLATELET COUNT (AUTO) 301 K/uL (179-408)
[2021-06-03 09:51] LABS: CARBON DIOXIDE 33 mmol/L (21-32); CHLORIDE 101 mmol/L (98-107); CREATININE 0.5 mg/dL (0.6-1.3); GLUCOSE 135 mg/dL (74-106); MAGNESIUM 2.5 mg/dL (1.8-2.4); PHOSPHOROUS 4.6 mg/dL (2.5-4.9); POTASSIUM 4.2 mmol/L (3.5-5.1); UREA NITROGEN, BLOOD 18 mg/dL (7-18)
[2021-06-03 11:44] VITALS: BP 115/70
[2021-06-03] MEDS ORDERED: APIX2.5T PO (11:51)
[2021-06-03] MEDS ORDERED: CEFE2FRO IV (11:51)
[2021-06-03] MEDS ORDERED: RXVAN XX (11:51)
[2021-06-03] MEDS ORDERED: METO25TA6 GT (11:51)
[2021-06-03] MEDS: IV NS 1000 ML 1,000 ML IV PRN (11:57)
[2021-06-03 16:00] VITALS: BP 119/59
--- NOTE | 2021-06-03 18:13 | NUR ---
patient received laying in bed in no apparent distress. v/s wnl, afebrile. call light within reach, side rails up x2. will monitor.
--- NOTE | 2021-06-03 18:17 | NUR ---
patient currently laying in bed in no acute distress. trach in place and patent, currently on tbar at 4l and tolerating well, respirations even and non-labored, no episode of shortness of breath during shift. gt in place and patent, all gt feedings and medication tolerated well. ongoing treatments tolerated well, no facial grimacing of pain or discomfort. family at bedside at this time. side rails up x2, call light within reach will monitor.
[2021-06-03] MEDS: ACETAMINOPHEN 650 MG/20.3 ML LIQUID UDC GT PRN (20:13)
[2021-06-03 20:16] VITALS: BP 117/50
--- NOTE | 2021-06-03 21:59 | NUR ---
RECEIVED PT IN NO ACUTE DISTRESS, PT TOLERATING GTUBE FEEDING. PT ON 4L OXYGEN. FAMILY AT BEDSIDE. IV INTACT. SAFETY AND COMFORT PROVIDED. WILL CONTINUE TO MONITOR.
[2021-06-04] MEDS: VANCOMYCIN IV 1,000 MG in IV DEXTROSE 5% 250 ML IV SCH (00:18)
[2021-06-04 04:30] VITALS: BP 110/70
[2021-06-04] MEDS: ACETAMINOPHEN 650 MG/20.3 ML LIQUID UDC GT PRN (04:30)
[2021-06-04] MEDS: CEFEPIME HCL 2 G in IV DEXTROSE 5% 100 ML IV SCH (05:05)
[2021-06-04] MEDS: NUTREN 2.0 1,000 ML LIQUID GT PRN (05:45)
[2021-06-04] MEDS: IV NS 1000 ML 1,000 ML IV PRN (05:46)
--- NOTE | 2021-06-04 05:59 | NUR ---
PT SLEPT INTERMITTENTLY. PT IN NO ACUTE DISTRESS.PT TURNED AND REPOSITIONED. PT LEFT FOOT DRESSING CHANGED. PRESCRIBED MEDICATION GIVEN AND PT TOLERATED IT WELL. SAFETY AND COMFORT PROVIDED.SUCTION PRN NEEDED. PT ON 3L OXYGEN. ALL NEEDS ARE MET. WILL ENDORSE TO INCOMING NURSE FOR CONTINUITY OF CARE.
[2021-06-04] MEDS: GABAPENTIN 300 MG CAPSULE GT SCH (08:52)
[2021-06-04 08:53] VITALS: BP 115/65
[2021-06-04] MEDS: FERROUS SULFATE 300 MG/5 ML LIQUID UDC GT SCH (08:53)
[2021-06-04] MEDS: SENNOSIDES 1 TABLET GT SCH (08:53)
[2021-06-04] MEDS: PANTOPRAZOLE ORAL SUSPENSION 40 MG SUSPDR.PKT GT SCH (08:53)
[2021-06-04] MEDS: ZINC SULFATE 220 MG CAPSULE GT SCH (08:53)
[2021-06-04] MEDS: METOPROLOL TARTRATE 25 MG TABLET GT SCH (08:53)
[2021-06-04] MEDS: MODAFINIL 100 MG TABLET GT SCH (08:53)
[2021-06-04] MEDS: MULTIVITAMINS,THERAPEUTIC TABLET GT SCH (08:53)
[2021-06-04] MEDS: ASCORBIC ACID 500 MG TABLET GT SCH (08:53)
[2021-06-04] MEDS: DOCUSATE SODIUM 100 MG/10 ML LIQUID UDC GT SCH (08:53)
[2021-06-04] MEDS: APIXABAN 2.5 MG TABLET PO SCH (08:54)
--- NOTE | 2021-06-04 12:30 | NUR ---
patient is discharged to nursing facility [facility], report given to martin, patient has intact g-tube, and has trach, patient stable at this time, status post right foot amputation, dressing intact, report given to martin, do not change the dressing to right foot per surgeon instructions, number provided to facility for Catie RIVERS to follow up for right foot. patient also has left hand and left big toe, treatment orders explained to nurse as well from [facility]. patient transported by a gurney. belongings are accounted and signed. Addendum: 06/04/21 at 1359 by CAROLA HOWARD RN, RN patient and sister bedside, sister had couple questions, appropriate questions answered, and made aware that patient is discharging to [facility].
== END 2021-06-04 12:30 | DRG 710 ==
LOC: ER 23:59 → MEDSURG3 05-23 02:52 → TELE3 05-23 03:30 → MEDSURG3 06-01 11:55
PROVIDERS: ADMIT Student in an Organized Health Care Education/Training Program; ATTEND Nurse Practitioner Acute Care
PROC: B546ZZA Ultrasonography of Right Subclavian Vein, Guidance (ICD-10-PCS; 2021-05-23)
PROC: 05H533Z Insertion of Infusion Device into Right Subclavian Vein, Percutaneous Approach (ICD-10-PCS; 2021-05-23)
PROC: 30233N1 Transfusion of Nonautologous Red Blood Cells into Peripheral Vein, Percutaneous Approach (ICD-10-PCS; principal; 2021-05-24)
PROC: 0Y6M0ZD Detachment at Right Foot, Partial 4th Ray, Open Approach (ICD-10-PCS; 2021-05-29)
PROC: 0Y6M0Z9 Detachment at Right Foot, Partial 1st Ray, Open Approach (ICD-10-PCS; 2021-05-29)
PROC: 0JBR0ZZ Excision of Left Foot Subcutaneous Tissue and Fascia, Open Approach (ICD-10-PCS; 2021-05-29)
PROC: 0Y6M0ZF Detachment at Right Foot, Partial 5th Ray, Open Approach (ICD-10-PCS; 2021-05-29)
PROC: 0Y6M0ZB Detachment at Right Foot, Partial 2nd Ray, Open Approach (ICD-10-PCS; 2021-05-29)
PROC: 0Y6M0ZC Detachment at Right Foot, Partial 3rd Ray, Open Approach (ICD-10-PCS; 2021-05-29)
DX: A41.9 Sepsis, unspecified organism (principal); I26.99 Other pulmonary embolism without acute cor pulmonale; I76 Septic arterial embolism; I33.0 Acute and subacute infective endocarditis; I21.A1 Myocardial infarction type 2; A48.0 Gas gangrene; J69.0 Pneumonitis due to inhalation of food and vomit; G93.49 Other encephalopathy; J96.10 Chronic respiratory failure, unspecified whether with hypoxia or hypercapnia; E43 Unspecified severe protein-calorie malnutrition; R53.2 Functional quadriplegia; Z93.0 Tracheostomy status; Z99.11 Dependence on respirator [ventilator] status; E11.52 Type 2 diabetes mellitus with diabetic peripheral angiopathy with gangrene; D64.9 Anemia, unspecified; Z93.1 Gastrostomy status; N39.0 Urinary tract infection, site not specified; Z66 Do not resuscitate; Z74.01 Bed confinement status; I69.351 Hemiplegia and hemiparesis following cerebral infarction affecting right dominant side; I69.320 Aphasia following cerebral infarction; I50.22 Chronic systolic (congestive) heart failure; D68.59 Other primary thrombophilia; E11.42 Type 2 diabetes mellitus with diabetic polyneuropathy; Z85.42 Personal history of malignant neoplasm of other parts of uterus; Z90.710 Acquired absence of both cervix and uterus; Z86.718 Personal history of other venous thrombosis and embolism; Z95.828 Presence of other vascular implants and grafts; Z85.41 Personal history of malignant neoplasm of cervix uteri; I11.0 Hypertensive heart disease with heart failure; D73.5 Infarction of spleen; Z20.822 Contact with and (suspected) exposure to COVID-19; Z79.4 Long term (current) use of insulin; B96.20 Unspecified Escherichia coli [E. coli] as the cause of diseases classified elsewhere; C78.6 Secondary malignant neoplasm of retroperitoneum and peritoneum; R13.10 Dysphagia, unspecified; Z79.01 Long term (current) use of anticoagulants
CPT/HCPCS: 36415; 70030-TC; 71045; 71275; 73630; 83605; 83735; 84100; 84443; 85018; 85025; 85730; 86850; 86900; 86901; 86920; 87040; 87070; 87075; 87077; 87086; 93005; 93307; A4649; A4663; A6209; C1758; C9113; G0378; J0692; J1580; J1650; J1815; J2543; J3010; J3370; J3480; J3490; J7030; J7040; J7050; J7060; P9016; P9021; Q9967; U0003

== ENCOUNTER 2021-06-17 13:42 | Emergency (ER) | payer OTHER ==
[~2021-06-17] VITALS: Ht 165.1 cm; Wt 63.5 kg
[~2021-06-17 13:42] MED LIST: ACET-73 GT; ACET325T53 GT; APIX2.5T PO; ASCO500P18 GT; BISA10SU61 RC; CEFE2FRO IV; CHLO473M3 PO; DOCU100C36 GT; GABA600T12 GT; INSU100V28; METO25TA6 GT; MODA100T29 GT; MORP30TA PO; MULT-594 GT; OMEP20CA15 GT; ONDA4TAB5 GT; OXYC10TA49 GT; RXVAN XX; SENN-261 GT; SODI1TAB3 PO; ZINC220C6 GT
--- NOTE | 2021-06-17 14:30 | NUR ---
Nursing electrician supervisor substation notified for PICC LINE placement.
--- NOTE | 2021-06-17 17:54 | NUR ---
PICC line nurse unable to make it until 1999. Vanco due at 1999. next cefepime due 2199, missed 1400 dose.
--- NOTE | 2021-06-17 18:58 | NUR ---
also has frequency. no dysuria. Pt denies CP, SOB
--- NOTE | 2021-06-17 19:13 | NUR ---
Assumed care of patient from day shift LAURITA Terry.
--- NOTE | 2021-06-17 19:17 | NUR ---
Receieved patient lying in bed. Opens eyes to verbal and tactile stimuli. But non-verbal. Trach in place. In no apparent distress. Appears comfortable. Continue to monitor. Awaiting PICC line placement.
--- NOTE | 2021-06-17 19:58 | NUR ---
Telephone call to patient Heriberto Bolton and obtained consent for PICC line placement. Witnessed by central office technician Obey.
--- NOTE | 2021-06-17 20:45 | NUR ---
LAURITA Rich arrived to do PICC line placement.
--- NOTE | 2021-06-17 22:30 | NUR ---
Per LAURITA Rich, unable to place PICC linne. Only able to place Midline on right AC with triple lumen.
--- NOTE | 2021-06-17 22:42 | NUR ---
Telephone call to [facility] ambulance for transport spoke to SHERYL Webber 45-60 mins.
--- NOTE | 2021-06-17 22:47 | NUR ---
Telephone call to [facility], spoke to NEEMA Perera and informed that pt is going back to facility tonight with ambulance picking up ETA 45-60mins. and states understanding.
--- NOTE | 2021-06-17 23:20 | NUR ---
Patient picked up by [facility] ambulance #[id number], accompanied by 2 paramedics via gurney to transport patient back to [facility]. Paper work and belongings with patient/paramedics.
[2021-06-17 23:24] VITALS: BP 122/53
== END 2021-06-17 23:22 ==
LOC: ER 13:42
DX: R78.81 Bacteremia (principal); Z93.1 Gastrostomy status; G93.40 Encephalopathy, unspecified; Z74.01 Bed confinement status; Z86.73 Personal history of transient ischemic attack (TIA), and cerebral infarction without residual deficits; Z85.41 Personal history of malignant neoplasm of cervix uteri; E11.9 Type 2 diabetes mellitus without complications; Z86.718 Personal history of other venous thrombosis and embolism; Z79.01 Long term (current) use of anticoagulants; Z86.711 Personal history of pulmonary embolism; Z79.4 Long term (current) use of insulin; Z87.01 Personal history of pneumonia (recurrent)
CPT/HCPCS: A4663

== ENCOUNTER 2021-06-24 17:02 | Inpatient (IN) | payer OTHER ==
[2021-06-24] VITALS (9 sets, daily range): BP systolic 103–117; BP diastolic 55–68
[~2021-06-24] VITALS: Ht 165.1 cm; Wt 72.2 kg
[2021-06-24] MEDS ORDERED: VANCOMYCIN IV 1,000 MG in IV DEXTROSE 5% 250 ML IV ONE (17:30)
[2021-06-24] MEDS ORDERED: CEFEPIME HCL 2 G in IV DEXTROSE 5% 100 ML IV ONE (17:30)
[2021-06-24 18:00] LABS: MEAN CORPUSCULAR HEMOGLOBIN 23.6 uug (24.7-32.8); PLATELET COUNT (AUTO) 224 K/uL (179-408)
[2021-06-24 18:06] LABS: CARBON DIOXIDE 34 mmol/L (21-32); CHLORIDE 98 mmol/L (98-107); CREATININE 0.5 mg/dL (0.6-1.3); GLUCOSE 143 mg/dL (74-106); POTASSIUM 4.3 mmol/L (3.5-5.1); UREA NITROGEN, BLOOD 19 mg/dL (7-18)
[2021-06-24] MEDS ORDERED: ACETAMINOPHEN 325 MG TABLET-SA PATIENTS-PAIN ONLY GT PRN (18:15)
[2021-06-24] MEDS ORDERED: ACETAMINOPHEN ES 500 MG TABLET- SA PATIENTS-PAIN ONLY GT PRN (18:15)
[2021-06-24] MEDS ORDERED: BISACODYL 10 MG SUPP.RECT RC PRN (18:15)
[2021-06-24 18:22] LABS: ALANINE AMINOTRANSFERASE 34 U/L (14-59); ALKALINE PHOSPHATASE 168 U/L (50-136); ASPARTATE AMINOTRANSFERASE 50 U/L (15-37); BILIRUBIN,TOTAL 0.3 mg/dL (0.2-1.0); TOTAL PROTEIN, SERUM 6.8 g/dL (6.4-8.2)
[2021-06-24 18:26] LABS: BILIRUBIN,DIRECT < 0.1 mg/dL (0.0-0.2)
[2021-06-24] MEDS ORDERED: CEFEPIME HCL 1 G VIAL ONE ×2 (18:26→18:32)
[2021-06-24] MEDS ORDERED: ONDANSETRON 4 MG/2 ML VIAL IV PRN (18:30)
[2021-06-24] MEDS ORDERED: MAGNESIUM HYDROXIDE 30 ML LIQUID UDC GT PRN (18:30)
[2021-06-24] MEDS ORDERED: Z GUARD REMEDY PASTE 57 GM TUBE TOP PRN (18:30)
[2021-06-24] MEDS ORDERED: INSULIN REGULAR, HUMAN 300 UNIT/3 ML VIAL SQ PRN (18:30)
[2021-06-24] MEDS ORDERED: DEXTROSE 50% 50 ML DISP.SYRIN IV PRN (18:30)
[2021-06-24 18:31] LABS: *BILIRUBIN,URIN NEGATIVE (NEGATIVE); *CLARITY,URINE CLEAR (CLEAR); *COLOR,URINE YELLOW (YELLOW); *KETONES,URINE NEGATIVE (NEGATIVE); *UROBILINOGEN,URINE 0.2 E.U./dl (NORMAL); LEUKOCYTE ESTERASE ,URINE NEGATIVE (NEGATIVE); NITRITE, URINE NEGATIVE (NEGATIVE); UGLUCOSE NEGATIVE (NEGATIVE)
[2021-06-24] MEDS ORDERED: VANCOMYCIN IV 200 ML ONE (18:32)
[2021-06-24 18:33] LABS: *BLOOD, URINE NEGATIVE (NEGATIVE)
[2021-06-24 18:36] LABS: LYMPHOCYTES % (MANUAL) 10 % (20-40); MONOCYTES % (MANUAL) 5 % (2-10); NEUTROPHILS % (MANUAL) 85 % (42-75)
[2021-06-24] MEDS: PANTOPRAZOLE SODIUM 40 MG VIAL IV SCH ×2 (18:40→21:13)
[2021-06-24] MEDS ORDERED: PANTOPRAZOLE SODIUM 40 MG VIAL ONE (18:45)
[2021-06-24 18:55] LABS: BACTERIA,URINE FEW /HPF (NONE SEEN); SQUAMOUS EPITHELIAL CELL,UR MODERATE /HPF (NONE SEEN); URINE AMORPHOUS URATE FEW /HPF
--- NOTE | 2021-06-24 19:14 | NUR ---
Pt. admitted to [facility], pending assigned nurse & bed , under care of Dr. Whaley. Belongings List completed. MRSA swab collected, pending Dr Balderas's informed consent statement@this time.
--- NOTE | 2021-06-24 19:15 | NUR ---
still for informed blood consent, endorsed to charge preparation technicianLAURITA suarez.
--- NOTE | 2021-06-24 19:23 | NUR ---
Nursing model making supervisor was called by LAURITA Seaman ( re: pending 7pm LAURITA Hansen's arrival, it is passed [phone]).
--- NOTE | 2021-06-24 19:30 | NUR ---
SBAR to devulcanizer charger Adrian, still for [facility] bed & nurse assignment@this time.
--- NOTE | 2021-06-24 20:20 | NUR ---
Patient transfered to 3rd floor Tele TD via sukhi with nursing laundry supervisor taking patient.
--- NOTE | 2021-06-24 20:30 | NUR ---
Admitted a 45 years old female with Dx of Anemia and NSTEMI. Patient non-verbal, but opens eyes to tactile stimuli. Flat affect. In no apparent distress. Tracheostomy tube in place with 6LPM of O2. Sinus tachy on tele with HR of 111/min. Right upper arm midline noted to be leaking when flushed with NS. New PIV done on right shoulder area #20G and right FA #20G. Patient for blood transfusion X2 unit PRBC. Right foot and left hand with dressing intact. Right foot s/p amputation of toes, left hand/fingers gangrene. GT site clean and dry. Gaona catheter intact and draining via gravity. Routine admission care done. Plan of care initiated. Safety measure initiated and call bolivar within reached.
[2021-06-24] MEDS ORDERED: IV LACTATED RINGERS SOLUTION 1,000 ML IV ONE (20:45)
[2021-06-24] MEDS: METOPROLOL TARTRATE 25 MG TABLET GT SCH (21:14)
[2021-06-24] MEDS: CEFEPIME HCL 2 G in IV DEXTROSE 5% 100 ML IV SCH (21:49)
[2021-06-24] MEDS: BLOOD SUGAR DIAGNOSTIC 1 EACH STRIP VI SCH (23:13)
--- NOTE | 2021-06-24 23:28 | NUR ---
Completed 1 unit of PRBC. No adverse reaction noted. Will start 2nd unit of PRBC after peanut picker at the lab.
[2021-06-25] VITALS (8 sets, daily range): BP systolic 108–125; BP diastolic 54–66
--- NOTE | 2021-06-25 01:02 | NUR ---
Telephone call from lab/[facility] and reported Troponin level of 5.348. Trending in expected direction.
--- NOTE | 2021-06-25 02:33 | NUR ---
2nd unit of PRBC completed. No adverse reaction noted. Patient appears comfortable. In no apparent distress. Suction secretions PRN. O2 sat at 100%.
[2021-06-25] MEDS: CEFEPIME HCL 2 G in IV DEXTROSE 5% 100 ML IV SCH ×3 (05:31→21:14)
[2021-06-25] MEDS: BLOOD SUGAR DIAGNOSTIC 1 EACH STRIP VI SCH ×3 (05:50→18:43)
[2021-06-25 06:01] LABS: HEMATOCRIT 24.8 % (31.2-41.9); MEAN CORPUSCULAR HEMOGLOBIN 25.9 uug (24.7-32.8); MEAN CORPUSCULAR VOLUME 78.6 fL (75.5-95.3); PLATELET COUNT (AUTO) 198 K/uL (179-408)
--- NOTE | 2021-06-25 06:07 | NUR ---
Patient non-verbal, but opens eyes to tactile stimuli. Flat affect. In no acute distress. Tracheostomy tube in place with 6LPM of O2 via T piece. O2 sat at 96%. Suction secretions PRN. Sinus tachy on tele with HR of 114/min. PIV on right shoulder area and right FA remains intact and patent. No adverse reaction noted from IV antibiotics. GT site clean and dry. Gaona catheter intact and draining via gravity. Safety measure maintained and call bolivar within reached.
--- NOTE | 2021-06-25 06:42 | NUR ---
Obtain report from lab/[facility] pt Troponin level this am is 5.028 which is trending down from previous results. INR 7.64. WHEAT COMBINE DRIVER Gomez made aware of results and awaiting for any new order.
[2021-06-25] MEDS: VANCOMYCIN IV 1,000 MG in IV DEXTROSE 5% 250 ML IV SCH ×2 (06:46→18:30)
--- NOTE | 2021-06-25 07:05 | NUR ---
FOUR H CLUB AGENT Gomez with order to do LDH, haptoglobin, fibrinogen and LFT labs. Order verified. Inform bobcat driver/labor to add to blood draw this AM.
[2021-06-25 07:06] LABS: IRON, SERUM 31 ug/dL (50-175)
[2021-06-25 07:15] LABS: *OCCULT BLOOD STOOL POSITIVE (NEGATIVE)
--- NOTE | 2021-06-25 08:00 | NUR ---
pt in bed resting, p-t able to open eyes, sinus tachy on tele monitor, pt NPO except for meds,. pt voiding vi9a merrill, right UA ML leaking, no usable at this time, Right shoulder IV and R FA saline lock. pt has t piece in place on 6L O2, GT in place. will continue with plan of care,
[2021-06-25 08:32] LABS: ALANINE AMINOTRANSFERASE 34 U/L (14-59); ALKALINE PHOSPHATASE 156 U/L (50-136); ASPARTATE AMINOTRANSFERASE 41 U/L (15-37); BILIRUBIN,TOTAL 0.3 mg/dL (0.2-1.0); CARBON DIOXIDE 33 mmol/L (21-32); CHLORIDE 98 mmol/L (98-107); CREATININE 0.4 mg/dL (0.6-1.3); GLUCOSE 114 mg/dL (74-106); MAGNESIUM 2.2 mg/dL (1.8-2.4); PHOSPHOROUS 5.1 mg/dL (2.5-4.9); POTASSIUM 4.3 mmol/L (3.5-5.1); TOTAL PROTEIN, SERUM 6.8 g/dL (6.4-8.2); UREA NITROGEN, BLOOD 17 mg/dL (7-18)
[2021-06-25] MEDS ORDERED: Medication Not On Formulary EA (Gabapentin 600 MG) GT SCH (09:00)
[2021-06-25] MEDS ORDERED: Medication Not On Formulary EA (Multivitamins (Multivitamin) 1 TAB) GT SCH (09:00)
[2021-06-25] MEDS ORDERED: DOCUSATE SODIUM 100 MG CAPSULE PO SCH (09:00)
[2021-06-25] MEDS ORDERED: Medication Not On Formulary EA (Ascorbic Acid (Vitamin C) 500 MG) GT SCH (09:00)
[2021-06-25] MEDS: ZINC SULFATE 220 MG CAPSULE GT SCH (09:39)
[2021-06-25] MEDS: MULTIVITAMINS,THERAPEUTIC TABLET GT SCH (09:39)
[2021-06-25] MEDS: MODAFINIL 100 MG TABLET GT SCH (09:39)
[2021-06-25] MEDS: DOCUSATE SODIUM 100 MG/10 ML LIQUID UDC GT SCH (09:39)
[2021-06-25] MEDS: MORPHINE SULFATE IR 30 MG TABLET GT SCH ×2 (09:39→18:29)
[2021-06-25] MEDS: GABAPENTIN 300 MG CAPSULE GT SCH ×3 (09:39→18:29)
[2021-06-25] MEDS: ASCORBIC ACID 500 MG TABLET GT SCH (09:40)
[2021-06-25] MEDS: PANTOPRAZOLE SODIUM 40 MG VIAL IV SCH ×2 (09:40→20:43)
[2021-06-25] MEDS: CHLORHEXIDINE GLUCONATE 15 ML MOUTHWASH MM SCH ×2 (09:40→18:30)
[2021-06-25] MEDS: SENNOSIDES 1 TABLET GT SCH (09:40)
[2021-06-25] MEDS: METOPROLOL TARTRATE 25 MG TABLET GT SCH ×2 (09:44→20:43)
[2021-06-25 13:42] LABS: ALANINE AMINOTRANSFERASE 33 U/L (14-59); ALKALINE PHOSPHATASE 155 U/L (50-136); ASPARTATE AMINOTRANSFERASE 44 U/L (15-37); BILIRUBIN,TOTAL 0.3 mg/dL (0.2-1.0); LACTATE DEHYDROGENASE 644 U/L (81-234); TOTAL PROTEIN, SERUM 6.8 g/dL (6.4-8.2)
[2021-06-25 13:50] LABS: BILIRUBIN,DIRECT < 0.1 mg/dL (0.0-0.2)
[2021-06-25] MEDS: ACETAMINOPHEN 325 MG TABLET GT PRN (14:37)
--- NOTE | 2021-06-25 16:09 | NUR ---
Clinical Social Work Consult Consult was ordered for continuity of care. MOMO spoke with RN, Rosalie, to gather information about patients care. RN informed SW that patient is non verbal, but family was currently visiting. Patients son was in for a visit and shared with SW that his mother came from a SNF [facility] [address] [address] . Patients son stated that he would like assistance in finding a different SNF for his mother when she is discharged. Patients son request if patient can be transferred to the sub acute unit at [facility]. SW will work with patients son to coordinate appropriate placement for mother.
--- NOTE | 2021-06-25 19:00 | NUR ---
RECEIVED PATIENT WITH T-PIECE IN PLACE ON 6L 02. SUCTIONED PRN. RT SEEN PATIENT. NO ACUTE DISTRESS IDENTIFIED. PERIPHERAL IV LINE TO THE RT SHOULDER AREA AND RT FOREARM, INTACT. CLEANSED AND CHANGED DRAIN SPONGES TO THE GTUBE, FLUSHED AND INTACT. SKIN CARE DONE. WILL CONTINUE TO MONITOR.
--- NOTE | 2021-06-26 | NUR ---
ACCUCHECK IS 92mg/dL. Will continue to monitor.
[2021-06-26 00:10] VITALS: BP 112/62
[2021-06-26] MEDS: BLOOD SUGAR DIAGNOSTIC 1 EACH STRIP VI SCH ×4 (00:21→17:57)
[2021-06-26 04:22] VITALS: BP 116/56
[2021-06-26] MEDS: CEFEPIME HCL 2 G in IV DEXTROSE 5% 100 ML IV SCH ×3 (05:00→21:48)
[2021-06-26] MEDS: VANCOMYCIN IV 1,000 MG in IV DEXTROSE 5% 250 ML IV SCH (06:00)
--- NOTE | 2021-06-26 06:00 | NUR ---
ACCUCHECK 96 mg/dL. no action taken. will continue to monitor.
--- NOTE | 2021-06-26 06:00 | NUR ---
vanco not given. Per pharmacy, check vanco through result. Called lab, awaiting result. Will endorse to the next shift.
--- NOTE | 2021-06-26 06:29 | NUR ---
KEPT PATIENT COMFORTABLE DURING THE SHIFT. NO DISTRESS IDENTIFIED. SUCTIONED PRN, TOLERATED WELL. FEEDING IS ON HOLD PER ORDER. GTUBE, INTACT. ALL NEEDS ATTENDED. PROVIDED QUIET TIME DURING THE NIGHT. WILL ENDORSE TO THE NEXT SHIFT FOR CONTINUITY OF CARE.
[2021-06-26 06:36] LABS: HEMATOCRIT 25.1 % (31.2-41.9); MEAN CORPUSCULAR HEMOGLOBIN 25.5 uug (24.7-32.8); MEAN CORPUSCULAR VOLUME 77.8 fL (75.5-95.3); PLATELET COUNT (AUTO) 221 K/uL (179-408)
[2021-06-26 07:06] LABS: CARBON DIOXIDE 31 mmol/L (21-32); CHLORIDE 96 mmol/L (98-107); CREATININE 0.4 mg/dL (0.6-1.3); GLUCOSE 102 mg/dL (74-106); POTASSIUM 3.8 mmol/L (3.5-5.1); UREA NITROGEN, BLOOD 13 mg/dL (7-18)
--- NOTE | 2021-06-26 08:00 | NUR ---
RESTING COMFORTABLY WITH EYES CLOSE, NO SS OF PAIN OR ACUTE DISTRESS WITH O2 6L VIA T-PIECE SATURATING 97% ST ON MONITOR.
[2021-06-26] MEDS: DOCUSATE SODIUM 100 MG/10 ML LIQUID UDC GT SCH (08:15)
[2021-06-26] MEDS: ZINC SULFATE 220 MG CAPSULE GT SCH (08:16)
[2021-06-26] MEDS: GABAPENTIN 300 MG CAPSULE GT SCH ×3 (08:16→16:20)
[2021-06-26] MEDS: PANTOPRAZOLE SODIUM 40 MG VIAL IV SCH ×2 (08:16→21:48)
[2021-06-26] MEDS: METOPROLOL TARTRATE 25 MG TABLET GT SCH ×2 (08:17→21:49)
[2021-06-26] MEDS: MULTIVITAMINS,THERAPEUTIC TABLET GT SCH (08:17)
[2021-06-26] MEDS: MODAFINIL 100 MG TABLET GT SCH (08:18)
[2021-06-26] MEDS: SENNOSIDES 1 TABLET GT SCH (08:18)
[2021-06-26] MEDS: ASCORBIC ACID 500 MG TABLET GT SCH (08:18)
[2021-06-26] MEDS: MORPHINE SULFATE IR 30 MG TABLET GT SCH ×2 (08:18→16:20)
[2021-06-26] MEDS: CHLORHEXIDINE GLUCONATE 15 ML MOUTHWASH MM SCH ×2 (08:19→16:20)
--- NOTE | 2021-06-26 09:18 | NUR ---
WOUND CARE CONSULT: PT PRESENTS WITH LEFT HAND NECROTIC FINGERS, SACRAL INTACT DEEP TISSUE INJURY AND FOOT WOUNDS, PRESENT ON ADMISSION. DR SIERRA AND DR PROCTOR NOTIFIED OF SURGICAL AND DPM CONSULT REQUESTS. RECOMMENDATIONS MADE FOR SKIN PROTECTION AND DISCUSSED WITH NURSING STAFF. FIRST STEP LOW AIRLOSS MATTRESS IS ON ORDER. MD IN AGREEMENT WITH PLAN OF CARE.
--- NOTE | 2021-06-26 10:00 | NUR ---
SEEN BY Jorje CASSIDYA NOTED GANGRENOUS LEFT FINGERS SEE NOTES FOR PLAN.
[2021-06-26 12:00] VITALS: BP 122/62
--- NOTE | 2021-06-26 13:30 | NUR ---
SEEN BY [facility] ON DUTY WITH ORDER TO RESTART TF OF GLUCERNA 40 MLS/HR. PATIENT TO BE SEEN BY GI ON TUESDAY
[2021-06-26 15:29] VITALS: BP 118/58
--- NOTE | 2021-06-26 15:49 | NUR ---
SEEN BY DR MAY FOR FOLLOW-UP, SUTURES REMOVED RIGHT FOOT WITHOUT SIGNS OF BLEEDING. NO TX ORDER PER DR MIGUEL ANGEL MAY JUST OPEN TO AIR AND CONTINUE FOOT SUPPORT
[2021-06-26] MEDS: GLUCERNA 1.2 1000ML LIQUID GT PRN (16:16)
[2021-06-26] MEDS: ARGININE/GLUTAMINE/CALCIUM BMB 1 EACH POWD.PACK GT SCH (18:07)
[2021-06-26] MEDS: VANCOMYCIN IV 1,250 MG in IV DEXTROSE 5% 250 ML IV SCH (18:10)
[2021-06-26 20:09] VITALS: BP 109/48
[2021-06-27] VITALS: BP 113/52
[2021-06-27] MEDS: BLOOD SUGAR DIAGNOSTIC 1 EACH STRIP VI SCH ×5 (01:01→23:31)
[2021-06-27 04:05] VITALS: BP 112/53
[2021-06-27] MEDS: CEFEPIME HCL 2 G in IV DEXTROSE 5% 100 ML IV SCH (05:04)
[2021-06-27] MEDS: VANCOMYCIN IV 1,250 MG in IV DEXTROSE 5% 250 ML IV SCH ×2 (06:04→19:41)
[2021-06-27 08:26] LABS: MEAN CORPUSCULAR HEMOGLOBIN 25.8 uug (24.7-32.8); MEAN CORPUSCULAR VOLUME 77.8 fL (75.5-95.3); PLATELET COUNT (AUTO) 246 K/uL (179-408)
[2021-06-27 08:34] LABS: CARBON DIOXIDE 31 mmol/L (21-32); CHLORIDE 97 mmol/L (98-107); CREATININE 0.5 mg/dL (0.6-1.3); GLUCOSE 155 mg/dL (74-106); UREA NITROGEN, BLOOD 12 mg/dL (7-18)
[2021-06-27] MEDS: MORPHINE SULFATE IR 30 MG TABLET GT SCH ×2 (09:37→16:31)
[2021-06-27] MEDS: METOPROLOL TARTRATE 25 MG TABLET GT SCH ×2 (09:37→21:00)
[2021-06-27] MEDS: DOCUSATE SODIUM 100 MG/10 ML LIQUID UDC GT SCH (09:37)
[2021-06-27] MEDS: MODAFINIL 100 MG TABLET GT SCH (09:37)
[2021-06-27] MEDS: ASCORBIC ACID 500 MG TABLET GT SCH (09:37)
[2021-06-27] MEDS: PANTOPRAZOLE SODIUM 40 MG VIAL IV SCH ×2 (09:38→20:55)
[2021-06-27] MEDS: SENNOSIDES 1 TABLET GT SCH (09:38)
[2021-06-27] MEDS: MULTIVITAMINS,THERAPEUTIC TABLET GT SCH (09:38)
[2021-06-27] MEDS: ZINC SULFATE 220 MG CAPSULE GT SCH (09:38)
[2021-06-27] MEDS: GABAPENTIN 300 MG CAPSULE GT SCH ×3 (09:38→16:31)
[2021-06-27] MEDS: CHLORHEXIDINE GLUCONATE 15 ML MOUTHWASH MM SCH ×2 (09:38→16:32)
[2021-06-27 11:58] VITALS: BP 134/61
[2021-06-27] MEDS ORDERED: ZIPRASIDONE MESYLATE 20 MG VIAL IM ONE (12:15)
[2021-06-27] MEDS: ARGININE/GLUTAMINE/CALCIUM BMB 1 EACH POWD.PACK GT SCH ×2 (12:50→16:32)
[2021-06-27 16:00] VITALS: BP 112/55
[2021-06-27 20:39] VITALS: BP 104/51
--- NOTE | 2021-06-27 21:18 | NUR ---
Received pt in bed with t-piece on 6L O2. No acute distress noted. G-tube, patent and intact. Feeding at 40 cc/hr. Pt will be NPO starting midnight for EGD in the morning. Consent provided via TO from , signed by 2 witnesses. DAVE midline, patent and intact. Suctioned PRN. Safety measures maintained. Will continue to monitor.
--- NOTE | 2021-06-28 00:05 | NUR ---
Accucheck done, blood sugar is 112mg/dl. No action taken. Will continue to monitor.
[2021-06-28 00:15] VITALS: BP 102/51
[2021-06-28 04:36] VITALS: BP 107/52
[2021-06-28] MEDS: BLOOD SUGAR DIAGNOSTIC 1 EACH STRIP VI SCH ×3 (05:16→17:19)
[2021-06-28] MEDS: VANCOMYCIN IV 1,250 MG in IV DEXTROSE 5% 250 ML IV SCH (06:00)
[2021-06-28 06:34] LABS: CARBON DIOXIDE 32 mmol/L (21-32); CHLORIDE 98 mmol/L (98-107); CREATININE 0.5 mg/dL (0.6-1.3); GLUCOSE 117 mg/dL (74-106); POTASSIUM 4.1 mmol/L (3.5-5.1); UREA NITROGEN, BLOOD 11 mg/dL (7-18)
--- NOTE | 2021-06-28 06:52 | NUR ---
Pt kept NPO after midnight. Vanco trough 28.8 this morning, held Vanco dose.
[2021-06-28 07:26] LABS: HEMATOCRIT 25.3 % (31.2-41.9); MEAN CORPUSCULAR VOLUME 77.9 fL (75.5-95.3)
[2021-06-28 07:27] LABS: PLATELET COUNT (AUTO) 208 K/uL (179-408)
[2021-06-28] MEDS: GABAPENTIN 300 MG CAPSULE GT SCH ×3 (08:55→17:18)
[2021-06-28] MEDS: MORPHINE SULFATE IR 30 MG TABLET GT SCH ×2 (08:55→17:18)
[2021-06-28] MEDS: DOCUSATE SODIUM 100 MG/10 ML LIQUID UDC GT SCH (08:55)
[2021-06-28] MEDS: ARGININE/GLUTAMINE/CALCIUM BMB 1 EACH POWD.PACK GT SCH ×2 (08:55→17:18)
[2021-06-28] MEDS: MODAFINIL 100 MG TABLET GT SCH (08:56)
[2021-06-28] MEDS: ASCORBIC ACID 500 MG TABLET GT SCH (08:56)
[2021-06-28] MEDS: MULTIVITAMINS,THERAPEUTIC TABLET GT SCH (08:56)
[2021-06-28] MEDS: SENNOSIDES 1 TABLET GT SCH (08:56)
[2021-06-28] MEDS: PANTOPRAZOLE SODIUM 40 MG VIAL IV SCH ×2 (08:56→20:03)
[2021-06-28] MEDS: ZINC SULFATE 220 MG CAPSULE GT SCH (08:56)
[2021-06-28] MEDS: CHLORHEXIDINE GLUCONATE 15 ML MOUTHWASH MM SCH ×2 (08:57→17:19)
[2021-06-28] MEDS: METOPROLOL TARTRATE 25 MG TABLET GT SCH ×2 (08:57→20:03)
[2021-06-28 11:33] VITALS: BP 108/56
[2021-06-28] MEDS: GLUCERNA 1.2 1000ML LIQUID GT PRN (11:50)
[2021-06-28] MEDS: ACETAMINOPHEN 325 MG TABLET GT PRN ×2 (12:06→20:03)
[2021-06-28] MEDS ORDERED: PROPOFOL 200 MG/20 ML BOTTLE IV ONE (13:23)
[2021-06-28 16:24] VITALS: BP 98/46
[2021-06-28] MEDS: VANCOMYCIN IV 1,000 MG in IV DEXTROSE 5% 250 ML IV SCH (17:22)
--- NOTE | 2021-06-28 19:19 | NUR ---
EGD was done, resumed g-tube feeding, g-tube intact with positive placement, no acute distress noted, kept patient comfortable, and clean, repositioned every 2 hours to relieve the pressure, no acute distress noted.
[2021-06-28 20:09] VITALS: BP 103/44
[2021-06-29 00:03] VITALS: BP 124/59
[2021-06-29] MEDS: BLOOD SUGAR DIAGNOSTIC 1 EACH STRIP VI SCH ×3 (00:20→12:17)
[2021-06-29 04:03] VITALS: BP_SYST 109; BP_SYST 147; BP_DIAS 51; BP_DIAS 89
--- NOTE | 2021-06-29 05:16 | NUR ---
Pt slept throughout the night. No distress noted. T-Piece in place connected to 8L of oxygen. Closed suction PRN. Gaona draining clear yellow urine. IV site intact. GT patent running Glucerna 1.2 at 40cc/hr with no residual. No other issues or concerns at this time, will endorse to day shift.
[2021-06-29] MEDS: ACETAMINOPHEN 325 MG TABLET GT PRN (06:06)
--- NOTE | 2021-06-29 08:00 | NUR ---
AWAKE NON VERBAL WITH TRACH YELITZA NUMBER 6 WITH T PIECE WITH O2 AT 8L/M WITH NO SUCTION OF BREATH AT THIS TIME.TURNED AND REPOSITIONED Q2H GT PATIENT WITH FEEDINGS AT 40ML/H ORDERED WITH NO GASTRIC RESIDUAL AT THIS TIME.RIGHT FOOT WITH DRESSING INTACT LEFT HAND FINGERS BLACKISH WITH SWELLING ELEVATED ON THE PILLOW CONTINUE ON ATB ORDERED WITH NO ADVERSE OR ALLERGIC REACTIONS AT THIS TIME WILL CONTINUE TO OBSERVE.
[2021-06-29] MEDS: GABAPENTIN 300 MG CAPSULE GT SCH ×2 (09:36→12:20)
[2021-06-29] MEDS: MULTIVITAMINS,THERAPEUTIC TABLET GT SCH (09:36)
[2021-06-29] MEDS: MODAFINIL 100 MG TABLET GT SCH (09:36)
[2021-06-29] MEDS: SENNOSIDES 1 TABLET GT SCH (09:36)
[2021-06-29] MEDS: MORPHINE SULFATE IR 30 MG TABLET GT SCH (09:36)
[2021-06-29] MEDS: ASCORBIC ACID 500 MG TABLET GT SCH (09:36)
[2021-06-29] MEDS: ZINC SULFATE 220 MG CAPSULE GT SCH (09:36)
[2021-06-29] MEDS: METOPROLOL TARTRATE 25 MG TABLET GT SCH (09:37)
[2021-06-29] MEDS: VANCOMYCIN IV 1,000 MG in IV DEXTROSE 5% 250 ML IV SCH (09:39)
[2021-06-29] MEDS: PANTOPRAZOLE SODIUM 40 MG VIAL IV SCH (09:39)
[2021-06-29] MEDS: DOCUSATE SODIUM 100 MG/10 ML LIQUID UDC GT SCH (09:40)
[2021-06-29] MEDS: CHLORHEXIDINE GLUCONATE 15 ML MOUTHWASH MM SCH (09:40)
[2021-06-29] MEDS: ARGININE/GLUTAMINE/CALCIUM BMB 1 EACH POWD.PACK GT SCH (09:40)
[2021-06-29 11:37] VITALS: BP 115/59
[2021-06-29] MEDS ORDERED: PANT40TA2 PO (11:57)
[2021-06-29] MEDS ORDERED: VANC1PLA9 IV (11:57)
[2021-06-29] MEDS ORDERED: NUTR1PAC14 GT (11:57)
[2021-06-29] MEDS ORDERED: Glucerna 1.2 GT (11:57)
[2021-06-29 12:18] LABS: HEMATOCRIT 24.9 % (31.2-41.9); MEAN CORPUSCULAR HEMOGLOBIN 25.5 uug (24.7-32.8); MEAN CORPUSCULAR VOLUME 77.9 fL (75.5-95.3); PLATELET COUNT (AUTO) 230 K/uL (179-408)
[2021-06-29 12:25] LABS: CARBON DIOXIDE 31 mmol/L (21-32); CHLORIDE 100 mmol/L (98-107); CREATININE 0.5 mg/dL (0.6-1.3); GLUCOSE 135 mg/dL (74-106); POTASSIUM 3.9 mmol/L (3.5-5.1); UREA NITROGEN, BLOOD 12 mg/dL (7-18)
[2021-06-29 15:30] VITALS: BP 117/59
--- NOTE | 2021-06-29 15:35 | NUR ---
PATIENT DISCHARGED BY BED TO [facility] IN SATISFACTORY CONDITION.PATIENTS SON AWARE.
== END 2021-06-29 15:45 | DRG 720 ==
LOC: ER 17:05 → TELE-TD3 20:39 → TELE3 06-25 11:54
PROVIDERS: ADMIT Nurse Practitioner Acute Care; ATTEND Nurse Practitioner Acute Care
PROC: 30233N1 Transfusion of Nonautologous Red Blood Cells into Peripheral Vein, Percutaneous Approach (ICD-10-PCS; principal; 2021-06-24)
PROC: 0DB98ZX Excision of Duodenum, Via Natural or Artificial Opening Endoscopic, Diagnostic (ICD-10-PCS; 2021-06-28)
DX: A41.9 Sepsis, unspecified organism (principal); I21.4 Non-ST elevation (NSTEMI) myocardial infarction; G93.49 Other encephalopathy; J96.10 Chronic respiratory failure, unspecified whether with hypoxia or hypercapnia; E44.0 Moderate protein-calorie malnutrition; J15.6 Pneumonia due to other Gram-negative bacteria; D68.59 Other primary thrombophilia; E11.52 Type 2 diabetes mellitus with diabetic peripheral angiopathy with gangrene; D62 Acute posthemorrhagic anemia; I96 Gangrene, not elsewhere classified; Z93.0 Tracheostomy status; Z20.822 Contact with and (suspected) exposure to COVID-19; E11.22 Type 2 diabetes mellitus with diabetic chronic kidney disease; E11.42 Type 2 diabetes mellitus with diabetic polyneuropathy; E88.09 Other disorders of plasma-protein metabolism, not elsewhere classified; Z74.01 Bed confinement status; I25.10 Atherosclerotic heart disease of native coronary artery without angina pectoris; Z79.4 Long term (current) use of insulin; Z89.422 Acquired absence of other left toe(s); Z93.1 Gastrostomy status; Z68.26 Body mass index [BMI] 26.0-26.9, adult; Z90.710 Acquired absence of both cervix and uterus; N18.9 Chronic kidney disease, unspecified; Z85.42 Personal history of malignant neoplasm of other parts of uterus; D68.9 Coagulation defect, unspecified; Z86.73 Personal history of transient ischemic attack (TIA), and cerebral infarction without residual deficits; I35.8 Other nonrheumatic aortic valve disorders; Z89.431 Acquired absence of right foot; Z86.19 Personal history of other infectious and parasitic diseases; K29.71 Gastritis, unspecified, with bleeding; I12.9 Hypertensive chronic kidney disease with stage 1 through stage 4 chronic kidney disease, or unspecified chronic kidney disease; Z86.718 Personal history of other venous thrombosis and embolism; Z95.828 Presence of other vascular implants and grafts
CPT/HCPCS: 36415; 70030-TC; 71045; 83010; 83550; 83605; 83615; 83735; 84100; 85025; 85610; 85730; 86850; 86900; 86901; 86920; 87040; 87086; 93005; A4217; A4663; A6209; C9113; G0378; J0692; J1815; J3370; J3490; J7030; J7040; J7050; J7060; P9016; P9021

== ENCOUNTER 2021-06-29 16:02 | Inpatient (IN) | payer OTHER ==
[~2021-06-29] VITALS: Ht 165.1 cm; Wt 66.7 kg
[~2021-06-29 16:02] MED LIST changes: +Glucerna 1.2 GT; +NUTR1PAC14 GT; +PANT40TA2 PO; +VANC1PLA9 IV
[2021-06-29 18:00] VITALS: BP 104/56
--- NOTE | 2021-06-29 18:00 | NUR ---
Patient admitted from acute shepherd, alert able to follow simple verbal commands, no acute respiratory distress noted, abdomen soft non-distended, no distress noted, shawn Krause at bedside, orders verified with Dr. Lucas, Dr Baxter notified of new admission, , gtube feeding started, tolerating well, f/c draining well, left hand fingers necrosis, left great toe wound, right foot partially amputated, stump dry with no drainage, sacral DTI/redness noted, comfort measures given. Addendum: 06/29/21 at 1921 by DALILA DORANTES RN Left message to aicha Jasso [phone] regarding admission.
[2021-06-29] MEDS ORDERED: INSULIN REGULAR, HUMAN 300 UNIT/3 ML VIAL SQ PRN (18:15)
[2021-06-29] MEDS ORDERED: DEXTROSE 50% 50 ML DISP.SYRIN IV PRN (18:15)
[2021-06-29] MEDS ORDERED: ACETAMINOPHEN 650 MG/20 ML UDC- SA PATIENTS-FEVER ONLY GT PRN (18:30)
[2021-06-29] MEDS ORDERED: BISACODYL 10 MG SUPP.RECT RC PRN ×2 (18:30→18:45)
[2021-06-29] MEDS ORDERED: ACETAMINOPHEN 650 MG/20 ML UDC- SA PATIENTS-PAIN ONLY GT PRN (18:30)
[2021-06-29] MEDS ORDERED: GLUCERNA 1.2 1000ML LIQUID GT PRN (18:30)
[2021-06-29] MEDS ORDERED: GLUCERNA GT PRN (18:45)
[2021-06-29] MEDS ORDERED: Medication Not On Formulary EA (Oxycodone Hcl 1 TAB) GT SCH (18:45)
[2021-06-29] MEDS ORDERED: ACETAMINOPHEN 325 MG TABLET-SA PATIENTS-PAIN ONLY GT PRN (18:45)
[2021-06-29] MEDS ORDERED: ONDANSETRON ODT 4 MG TAB.RAPDIS GT PRN (18:45)
[2021-06-29] MEDS ORDERED: TUBERCULIN,PURIF.PROT.DERIV. 5 TU/0.1 ML TEST ID ONE (19:00)
[2021-06-29 20:00] VITALS: BP 134/73
[2021-06-29] MEDS: NEOMY/BACITRA/POLYMYXIN B OINT UD PACKET TP SCH ×2 (21:00)
[2021-06-29] MEDS: POVIDONE-IODINE WASH 236 ML BOTTLE TP SCH (21:00)
[2021-06-29] MEDS: VITAMINS A AND D OINT TP SCH ×2 (21:00)
[2021-06-29] MEDS: MORPHINE SULFATE IR 30 MG TABLET GT SCH (21:00)
[2021-06-29] MEDS: ZINC SULFATE 220 MG CAPSULE GT SCH (21:00)
[2021-06-29] MEDS: DOCUSATE SODIUM 100 MG/10 ML LIQUID UDC GT SCH (21:00)
[2021-06-29] MEDS: MULTIVITAMINS,THERAPEUTIC TABLET GT SCH (21:00)
[2021-06-29] MEDS ORDERED: METOPROLOL TARTRATE 25 MG TABLET GT SCH (21:00)
[2021-06-29] MEDS: ASCORBIC ACID 500 MG TABLET GT SCH (21:00)
[2021-06-29] MEDS: APIXABAN 2.5 MG TABLET GT SCH (21:00)
[2021-06-29] MEDS: COD LIVER OIL/ZINC OXIDE OINT 113 GM TUBE TP SCH (21:00)
[2021-06-29] MEDS: SENNOSIDES 1 TABLET GT SCH (21:00)
[2021-06-29] MEDS ORDERED: APIXABAN 2.5 MG TABLET PO SCH (21:00)
[2021-06-29] MEDS ORDERED: CEFEPIME HCL 1 G in IV DEXTROSE 5% 50 ML IV SCH (22:00)
[2021-06-29] MEDS: GABAPENTIN 300 MG CAPSULE GT SCH (22:00)
[2021-06-29] MEDS: SODIUM CHLORIDE 1,000 MG TABLET GT SCH (22:00)
[2021-06-30] VITALS: BP 118/70
[2021-06-30] MEDS ORDERED: BLOOD SUGAR DIAGNOSTIC 1 EACH STRIP VI SCH
[2021-06-30] MEDS ORDERED: VANCOMYCIN IV 1,000 MG in IV DEXTROSE 5% 250 ML IV ONE (01:00)
--- NOTE | 2021-06-30 02:00 | NUR ---
Patient is awake, non- verbal, trach is intact and patent, suctioned with moderate thick yellow secretions, no respiratory distress noted. GT feeding feeding tolerating well, on IV antibiotic for Sepsis, no adverse reactions noted, IV site on Right upper arm is intact, no complications noted. Gaona catheter is draining well with ana urine, fluids given as ordered, treatment done to sacral DTI, Left and Right foot dry skin, Left upper inner arm abrasion, Left Great toe open wound, Right Partial foot stump, Left hand fingers gangrene as ordered, turned and repositioned for comfort, kept clean and comfortable. Addendum: 06/30/21 at 0326 by PAU PHAN RN Right side of the head is soft and noted with no bone noted on that part. Right Transmetatarsal amputation, area is clean and dry, Left fingers gangrene, fingers intact, handled very gently.
[2021-06-30 04:00] VITALS: BP 112/55
[2021-06-30] MEDS: ARGININE/GLUTAMINE/CALCIUM BMB 1 EACH POWD.PACK GT SCH ×2 (05:31→17:55)
[2021-06-30] MEDS: SODIUM CHLORIDE 1,000 MG TABLET GT SCH ×3 (05:32→21:58)
[2021-06-30] MEDS: GABAPENTIN 300 MG CAPSULE GT SCH ×3 (05:32→21:58)
[2021-06-30] MEDS ORDERED: OMEPRAZOLE 20 MG CAPSULE.DR GT SCH (06:00)
[2021-06-30] MEDS ORDERED: MODAFINIL 100 MG TABLET GT SCH (06:00)
[2021-06-30 07:47] VITALS: BP 119/56
[2021-06-30] MEDS ORDERED: ZINC SULFATE 220 MG CAPSULE GT SCH (09:00)
[2021-06-30] MEDS: MORPHINE SULFATE IR 30 MG TABLET GT SCH ×2 (09:00→20:13)
[2021-06-30] MEDS ORDERED: Medication Not On Formulary EA (Ascorbic Acid (Vitamin C) 500 MG) GT SCH (09:00)
[2021-06-30] MEDS: APIXABAN 2.5 MG TABLET GT SCH ×2 (09:00→20:12)
[2021-06-30] MEDS ORDERED: SENNOSIDES 1 TABLET GT SCH (09:00)
[2021-06-30] MEDS ORDERED: MORPHINE SULFATE IR 30 MG TABLET PO ONE ×2 (09:00→21:00)
[2021-06-30] MEDS: NORMAL SALINE FLUSH 10 ML DISP.SYRIN IV SCH ×2 (09:00→21:00)
[2021-06-30] MEDS: ASCORBIC ACID 500 MG TABLET GT SCH ×2 (09:00→20:24)
[2021-06-30] MEDS ORDERED: MORPHINE SULFATE IR 30 MG TABLET PO SCH (09:00)
[2021-06-30] MEDS ORDERED: ARGININE/GLUTAMINE/CALCIUM BMB 1 EACH POWD.PACK GT SCH (09:00)
[2021-06-30] MEDS: COD LIVER OIL/ZINC OXIDE OINT 113 GM TUBE TP SCH ×4 (09:00→20:26)
[2021-06-30] MEDS: NEOMY/BACITRA/POLYMYXIN B OINT UD PACKET TP SCH ×4 (09:00→21:58)
[2021-06-30] MEDS: METOPROLOL TARTRATE 25 MG TABLET GT SCH ×2 (09:00→20:23)
[2021-06-30] MEDS ORDERED: DOCUSATE SODIUM 100 MG CAPSULE PO SCH (09:00)
[2021-06-30] MEDS ORDERED: Medication Not On Formulary EA (Omeprazole 1 CAP) GT SCH (09:00)
[2021-06-30] MEDS: CHLORHEXIDINE GLUCONATE 15 ML MOUTHWASH MM SCH ×2 (09:00→17:55)
[2021-06-30] MEDS ORDERED: Medication Not On Formulary EA (Gabapentin 600 MG) GT SCH (09:00)
[2021-06-30] MEDS: VITAMINS A AND D OINT TP SCH ×4 (09:00→20:27)
[2021-06-30] MEDS ORDERED: Medication Not On Formulary EA (Multivitamins (Multivitamin) 1 TAB) GT SCH (09:00)
[2021-06-30] MEDS: POVIDONE-IODINE WASH 236 ML BOTTLE TP SCH ×2 (09:00→20:26)
[2021-06-30 11:00] VITALS: BP 115/55
--- NOTE | 2021-06-30 11:01 | NUR ---
WOUND CARE CONSULT: PT SEEN FOR SKIN ASSESSMENT AND NOTED TO HAVE NECROTIC FINGERS, SACRAL DEEP TISSUE INJURY (NOW IN EVOLUTION), SWELLING LEFT ARM AND TO RT SIDE OF HEAD WELL FOOT WOUNDS, PRESENT ON ADMISSION. DR SIERRA AND DR PROCTOR NOTIFIED OF PT ADMISSION FOR SURGICAL AND DPM FOLLOW UP. DEFER TO PMD FOR HEAD. SACRAL DTI MEASURES 4CM X 6CM X UTD AND IS PURPLE AND RED IN COLOR, NO DRAINAGE, NO ODOR. RECOMMENDATIONS MADE FOR SKIN PROTECTION. DISCUSSED WITH NURSING STAFF. [facility]. IN AGREEMENT WITH PLAN OF CARE.
--- NOTE | 2021-06-30 11:20 | NUR ---
Seen and examined by Marissa,wound customer care representative,she evaluate the sacral Dti in evolution,with new orders noted.
[2021-06-30] MEDS ORDERED: COD LIVER OIL/ZINC OXIDE OINT 113 GM TUBE TP PRN (12:15)
--- NOTE | 2021-06-30 13:41 | NUR ---
Summary of care discussed with shawn Freeman. All questions answered. Electronically signed by Olinda Osborne RN, BSN
[2021-06-30 15:00] VITALS: BP 112/62
[2021-06-30] MEDS: VANCOMYCIN IV 1,000 MG in IV DEXTROSE 5% 250 ML IV SCH (17:25)
--- NOTE | 2021-06-30 18:00 | NUR ---
Seen and examined By Dr Baxter with new orders
[2021-06-30] MEDS ORDERED: ACETAMINOPHEN 650 MG/20 ML UDC- SA PATIENTS-FEVER ONLY GT PRN (18:53)
[2021-06-30] MEDS ORDERED: ACETAMINOPHEN 650 MG/20 ML UDC- SA PATIENTS-PAIN ONLY GT PRN (18:54)
--- NOTE | 2021-06-30 19:05 | NUR ---
On IVATB ,vancomycin for sepsis,no adverse reaction noted,midline on the R upper arm,intact.
[2021-06-30] MEDS: DOCUSATE SODIUM 100 MG/10 ML LIQUID UDC GT SCH (20:11)
[2021-06-30] MEDS: SENNOSIDES 1 TABLET GT SCH (20:21)
[2021-06-30] MEDS: MULTIVITAMINS,THERAPEUTIC TABLET GT SCH (20:23)
[2021-06-30] MEDS: ZINC SULFATE 220 MG CAPSULE GT SCH (20:25)
[2021-06-30 20:36] VITALS: BP 149/67
[2021-07-01 00:08] VITALS: BP 106/55
[2021-07-01 04:14] VITALS: BP 102/57
[2021-07-01] MEDS: GABAPENTIN 300 MG CAPSULE GT SCH ×3 (06:11→21:47)
[2021-07-01] MEDS: ARGININE/GLUTAMINE/CALCIUM BMB 1 EACH POWD.PACK GT SCH ×2 (06:11→17:54)
[2021-07-01] MEDS: SODIUM CHLORIDE 1,000 MG TABLET GT SCH ×3 (06:11→21:47)
[2021-07-01] MEDS: OMEPRAZOLE 20 MG CAPSULE.DR GT SCH (06:11)
[2021-07-01 07:33] LABS: HEMATOCRIT 26.8 % (31.2-41.9); MEAN CORPUSCULAR HEMOGLOBIN 25.6 uug (24.7-32.8); MEAN CORPUSCULAR VOLUME 78.1 fL (75.5-95.3); PLATELET COUNT (AUTO) 219 K/uL (179-408)
[2021-07-01 07:42] VITALS: BP 106/59
[2021-07-01 07:50] LABS: BILIRUBIN,TOTAL 0.3 mg/dL (0.2-1.0); CREATININE 0.6 mg/dL (0.6-1.3); MAGNESIUM 2.2 mg/dL (1.8-2.4); PHOSPHOROUS 6.3 mg/dL (2.5-4.9); POTASSIUM 4.3 mmol/L (3.5-5.1); TOTAL PROTEIN, SERUM 6.9 g/dL (6.4-8.2)
[2021-07-01 08:17] LABS: ABG PH 7.451 (7.350-7.450); ABG PO2 88.6 mmHg (75.0-100.0); ABG SITE RIGHT RADIAL; ABG TOTAL HEMOGLOBIN 9.3 G/dL (12.0-16.0); COHb 1.3 % (0.5-1.5); MetHb 0.3 % (0.0-1.5); O2Hb 95.4 % (94.0-97.0)
[2021-07-01] MEDS: METOPROLOL TARTRATE 25 MG TABLET GT SCH ×2 (09:00→21:39)
[2021-07-01] MEDS ORDERED: MORPHINE SULFATE IR 30 MG TABLET PO ONE ×2 (09:00→21:00)
[2021-07-01] MEDS: APIXABAN 2.5 MG TABLET GT SCH ×2 (09:28→21:38)
[2021-07-01] MEDS: ASCORBIC ACID 500 MG TABLET GT SCH ×2 (09:29→21:46)
[2021-07-01] MEDS: MORPHINE SULFATE IR 30 MG TABLET GT SCH ×2 (09:29→21:40)
[2021-07-01] MEDS: CHLORHEXIDINE GLUCONATE 15 ML MOUTHWASH MM SCH ×2 (09:30→17:54)
[2021-07-01] MEDS: POVIDONE-IODINE WASH 236 ML BOTTLE TP SCH ×2 (09:30→21:46)
[2021-07-01] MEDS: COD LIVER OIL/ZINC OXIDE OINT 113 GM TUBE TP SCH ×4 (09:30→21:47)
[2021-07-01] MEDS: NORMAL SALINE FLUSH 10 ML DISP.SYRIN IV SCH ×2 (09:30→21:00)
[2021-07-01] MEDS: VITAMINS A AND D OINT TP SCH ×4 (09:31→21:47)
[2021-07-01] MEDS: NEOMY/BACITRA/POLYMYXIN B OINT UD PACKET TP SCH ×4 (09:31→21:47)
[2021-07-01] MEDS: VANCOMYCIN IV 1,000 MG in IV DEXTROSE 5% 250 ML IV SCH (09:55)
--- NOTE | 2021-07-01 17:42 | NUR ---
Continue on Ivatb for sepsis,no adverse reaction noted,midline on the R upper arm,intact ,flushed as ordered,continue on isolation precaution for PUI,visited by Son today,Pt's son is not sure is pt received the flu and pneumonia vaccine previously,new orders to change the enteral feeding to 65 cc/hr x 20 hours.,carried out.
[2021-07-01 20:54] VITALS: BP 123/61
[2021-07-01] MEDS: DOCUSATE SODIUM 100 MG/10 ML LIQUID UDC GT SCH (21:37)
[2021-07-01] MEDS: SENNOSIDES 1 TABLET GT SCH (21:40)
[2021-07-01] MEDS: MULTIVITAMINS,THERAPEUTIC TABLET GT SCH (21:45)
[2021-07-01] MEDS: ZINC SULFATE 220 MG CAPSULE GT SCH (21:46)
[2021-07-02] VITALS: BP 102/56
[2021-07-02] MEDS: VANCOMYCIN IV 1,000 MG in IV DEXTROSE 5% 250 ML IV SCH ×2 (01:00→16:52)
[2021-07-02 04:00] VITALS: BP 101/45
[2021-07-02] MEDS: OMEPRAZOLE 20 MG CAPSULE.DR GT SCH (05:38)
[2021-07-02] MEDS: GABAPENTIN 300 MG CAPSULE GT SCH ×3 (05:38→21:48)
[2021-07-02] MEDS: ARGININE/GLUTAMINE/CALCIUM BMB 1 EACH POWD.PACK GT SCH ×2 (05:38→17:51)
[2021-07-02] MEDS: SODIUM CHLORIDE 1,000 MG TABLET GT SCH ×3 (05:38→21:48)
[2021-07-02 07:54] VITALS: BP 107/56
[2021-07-02] MEDS ORDERED: MORPHINE SULFATE IR 30 MG TABLET PO ONE ×2 (09:00→21:00)
[2021-07-02] MEDS: NORMAL SALINE FLUSH 10 ML DISP.SYRIN IV SCH ×2 (09:00→21:00)
[2021-07-02] MEDS: METOPROLOL TARTRATE 25 MG TABLET GT SCH ×2 (09:00→21:45)
[2021-07-02] MEDS: APIXABAN 2.5 MG TABLET GT SCH ×2 (09:22→21:44)
[2021-07-02] MEDS: ASCORBIC ACID 500 MG TABLET GT SCH ×2 (09:23→21:47)
[2021-07-02] MEDS: COD LIVER OIL/ZINC OXIDE OINT 113 GM TUBE TP SCH ×4 (09:23→21:48)
[2021-07-02] MEDS: MORPHINE SULFATE IR 30 MG TABLET GT SCH ×2 (09:23→21:46)
[2021-07-02] MEDS: POVIDONE-IODINE WASH 236 ML BOTTLE TP SCH ×2 (09:23→21:48)
[2021-07-02] MEDS: NEOMY/BACITRA/POLYMYXIN B OINT UD PACKET TP SCH ×4 (09:23→21:48)
[2021-07-02] MEDS: CHLORHEXIDINE GLUCONATE 15 ML MOUTHWASH MM SCH ×2 (09:23→17:51)
[2021-07-02] MEDS: VITAMINS A AND D OINT TP SCH ×4 (09:24→21:48)
[2021-07-02 20:00] VITALS: BP 114/60
[2021-07-02] MEDS: DOCUSATE SODIUM 100 MG/10 ML LIQUID UDC GT SCH (21:43)
[2021-07-02] MEDS: MULTIVITAMINS,THERAPEUTIC TABLET GT SCH (21:47)
[2021-07-02] MEDS: SENNOSIDES 1 TABLET GT SCH (21:47)
[2021-07-02] MEDS: ZINC SULFATE 220 MG CAPSULE GT SCH (21:48)
[2021-07-03] MEDS: SODIUM CHLORIDE 1,000 MG TABLET GT SCH ×3 (05:57→21:14)
[2021-07-03] MEDS: ARGININE/GLUTAMINE/CALCIUM BMB 1 EACH POWD.PACK GT SCH ×2 (05:57→17:24)
[2021-07-03] MEDS: OMEPRAZOLE 20 MG CAPSULE.DR GT SCH (05:57)
[2021-07-03] MEDS: GABAPENTIN 300 MG CAPSULE GT SCH ×3 (05:57→21:14)
[2021-07-03 07:57] VITALS: BP 123/57
[2021-07-03 08:35] LABS: CARBON DIOXIDE 35 mmol/L (21-32); CHLORIDE 98 mmol/L (98-107); CREATININE 0.5 mg/dL (0.6-1.3); GLUCOSE 135 mg/dL (74-106); POTASSIUM 4.5 mmol/L (3.5-5.1); UREA NITROGEN, BLOOD 23 mg/dL (7-18)
[2021-07-03] MEDS ORDERED: MORPHINE SULFATE IR 30 MG TABLET PO ONE ×2 (09:00→21:00)
[2021-07-03] MEDS: APIXABAN 2.5 MG TABLET GT SCH ×2 (09:12→21:13)
[2021-07-03] MEDS: COD LIVER OIL/ZINC OXIDE OINT 113 GM TUBE TP SCH ×4 (09:13→21:14)
[2021-07-03] MEDS: ASCORBIC ACID 500 MG TABLET GT SCH ×2 (09:13→21:13)
[2021-07-03] MEDS: METOPROLOL TARTRATE 25 MG TABLET GT SCH ×2 (09:13→21:00)
[2021-07-03] MEDS: NEOMY/BACITRA/POLYMYXIN B OINT UD PACKET TP SCH ×4 (09:13→21:14)
[2021-07-03] MEDS: VITAMINS A AND D OINT TP SCH ×4 (09:13→21:14)
[2021-07-03] MEDS: MORPHINE SULFATE IR 30 MG TABLET GT SCH ×2 (09:14→21:13)
[2021-07-03] MEDS: POVIDONE-IODINE WASH 236 ML BOTTLE TP SCH ×2 (09:14→21:14)
[2021-07-03] MEDS: CHLORHEXIDINE GLUCONATE 15 ML MOUTHWASH MM SCH ×2 (09:18→17:24)
[2021-07-03] MEDS: VANCOMYCIN IV 1,000 MG in IV DEXTROSE 5% 250 ML IV SCH (09:34)
[2021-07-03] MEDS: NORMAL SALINE FLUSH 10 ML DISP.SYRIN IV SCH ×2 (09:34→21:00)
--- NOTE | 2021-07-03 11:00 | NUR ---
Seen and examined By Dr Baxter.with new orders noted.
[2021-07-03] MEDS: OXYCODONE HCL 5 MG TABLET GT PRN ×2 (12:00→18:00)
[2021-07-03] MEDS: GLUCERNA 1.2 1000ML LIQUID GT PRN (12:28)
--- NOTE | 2021-07-03 16:50 | NUR ---
Continue on Ivatb,Vancomycin ,no adverse reaction noted,midline on the R upper arm,intact,no s/s of infection noted.
[2021-07-03] MEDS: ACETAzolamide 250 MG TABLET GT SCH (20:00)
[2021-07-03 20:55] VITALS: BP 121/50
[2021-07-03] MEDS: DOCUSATE SODIUM 100 MG/10 ML LIQUID UDC GT SCH (21:12)
[2021-07-03] MEDS: MULTIVITAMINS,THERAPEUTIC TABLET GT SCH (21:13)
[2021-07-03] MEDS: SENNOSIDES 1 TABLET GT SCH (21:13)
[2021-07-03] MEDS: ZINC SULFATE 220 MG CAPSULE GT SCH (21:14)
[2021-07-03] MEDS ORDERED: HYDROGEN PEROXIDE 3% 118 ML BOTTLE TOP PRN (21:45)
[2021-07-03] MEDS: HYDROGEN PEROXIDE 3% 118 ML BOTTLE TOP SCH (21:51)
[2021-07-03] MEDS: NEOMY/BACITRAC/POLYMI OINT 28.35 GM TUBE TOP SCH (22:30)
[2021-07-04] MEDS: VANCOMYCIN IV 1,000 MG in IV DEXTROSE 5% 250 ML IV SCH ×2 (01:06→17:39)
--- NOTE | 2021-07-04 01:22 | NUR ---
Afebrile, on Vancomycin IV for Sepsis, no adverse reactions noted, DAVE Midline is intact and no signs of any infections. No signs of respiratory distress noted, with ongoing treatment to left hand/finger gangrene, sacral DTI, and to multiple skin problems, GT feeding tolerating well, no vomiting noted. Gaona catheter is draining well with yellow urine, good bob care rendered, turned on to the left and back to avoid pressure on the Right side of the head; craniectomy site. Will continue monitor.
[2021-07-04] MEDS: GABAPENTIN 300 MG CAPSULE GT SCH ×3 (05:24→21:07)
[2021-07-04] MEDS: ARGININE/GLUTAMINE/CALCIUM BMB 1 EACH POWD.PACK GT SCH ×2 (05:24→17:34)
[2021-07-04] MEDS: SODIUM CHLORIDE 1,000 MG TABLET GT SCH ×3 (05:24→21:07)
[2021-07-04] MEDS: OMEPRAZOLE 20 MG CAPSULE.DR GT SCH (05:24)
[2021-07-04 08:02] VITALS: BP 103/42
[2021-07-04] MEDS: APIXABAN 2.5 MG TABLET GT SCH ×2 (08:24→21:04)
[2021-07-04] MEDS: MORPHINE SULFATE IR 30 MG TABLET GT SCH ×2 (08:25→21:04)
[2021-07-04] MEDS: ASCORBIC ACID 500 MG TABLET GT SCH ×2 (08:25→21:04)
[2021-07-04] MEDS: METOPROLOL TARTRATE 25 MG TABLET GT SCH ×2 (08:25→21:00)
[2021-07-04] MEDS: CHLORHEXIDINE GLUCONATE 15 ML MOUTHWASH MM SCH ×2 (08:26→17:34)
[2021-07-04] MEDS: COD LIVER OIL/ZINC OXIDE OINT 113 GM TUBE TP SCH ×4 (08:26→21:07)
[2021-07-04] MEDS: VITAMINS A AND D OINT TP SCH ×4 (08:26→21:07)
[2021-07-04] MEDS: NEOMY/BACITRAC/POLYMI OINT 28.35 GM TUBE TOP SCH ×2 (08:26→21:04)
[2021-07-04] MEDS: NEOMY/BACITRA/POLYMYXIN B OINT UD PACKET TP SCH ×4 (08:26→21:07)
[2021-07-04] MEDS: POVIDONE-IODINE WASH 236 ML BOTTLE TP SCH ×2 (08:26→21:07)
[2021-07-04] MEDS: HYDROGEN PEROXIDE 3% 118 ML BOTTLE TOP SCH ×2 (09:00→21:26)
[2021-07-04] MEDS: NORMAL SALINE FLUSH 10 ML DISP.SYRIN IV SCH ×2 (09:00→21:37)
[2021-07-04] MEDS ORDERED: MORPHINE SULFATE IR 30 MG TABLET PO ONE ×2 (09:00→21:00)
[2021-07-04] MEDS: GLUCERNA 1.2 1000ML LIQUID GT PRN (12:47)
--- NOTE | 2021-07-04 18:56 | NUR ---
CONTINUE ON VANCOMYCIN IVPB FOR SEPSIS, NO ADVERSE REACTION NOTED, RIGHT UPPER ARM MIDLINE INTACT, FLUSHING WELL AND NO S/S OF INFECTION NOTED. TREATMENT CONTINUE ON RIGHT HAND GANGRENE AND SACRAL DTI. KEPT CLEANED AND COMFORTABLE. WILL CONTINUE TO MONITOR.
[2021-07-04 20:00] VITALS: BP 107/54
[2021-07-04] MEDS: ACETAzolamide 250 MG TABLET GT SCH (20:00)
[2021-07-04] MEDS: DOCUSATE SODIUM 100 MG/10 ML LIQUID UDC GT SCH (21:03)
[2021-07-04] MEDS: SENNOSIDES 1 TABLET GT SCH (21:04)
[2021-07-04] MEDS: MULTIVITAMINS,THERAPEUTIC TABLET GT SCH (21:04)
[2021-07-04] MEDS: ZINC SULFATE 220 MG CAPSULE GT SCH (21:04)
--- NOTE | 2021-07-04 21:38 | NUR ---
On Vancomycin IV for Sepsis, no adverse reactions noted, DAVE Midline is intact and no signs of any infections. No signs of respiratory distress noted, 02 sat is 99%, kept clean and comfortable, on airborne precaution for Covid- 19 admission protocol.
[2021-07-05] MEDS: SODIUM CHLORIDE 1,000 MG TABLET GT SCH ×3 (05:28→21:12)
[2021-07-05] MEDS: OMEPRAZOLE 20 MG CAPSULE.DR GT SCH (05:28)
[2021-07-05] MEDS: ARGININE/GLUTAMINE/CALCIUM BMB 1 EACH POWD.PACK GT SCH ×2 (05:28→17:16)
[2021-07-05] MEDS: GABAPENTIN 300 MG CAPSULE GT SCH ×3 (05:28→21:12)
[2021-07-05 07:50] VITALS: BP 106/54
[2021-07-05] MEDS: APIXABAN 2.5 MG TABLET GT SCH ×2 (08:20→21:15)
[2021-07-05] MEDS: METOPROLOL TARTRATE 25 MG TABLET GT SCH ×2 (08:21→21:12)
[2021-07-05] MEDS: ASCORBIC ACID 500 MG TABLET GT SCH ×2 (08:21→21:12)
[2021-07-05] MEDS: CHLORHEXIDINE GLUCONATE 15 ML MOUTHWASH MM SCH ×2 (08:22→17:16)
[2021-07-05] MEDS: POVIDONE-IODINE WASH 236 ML BOTTLE TP SCH ×2 (08:22→21:12)
[2021-07-05] MEDS: COD LIVER OIL/ZINC OXIDE OINT 113 GM TUBE TP SCH ×4 (08:22→21:12)
[2021-07-05] MEDS: NEOMY/BACITRA/POLYMYXIN B OINT UD PACKET TP SCH ×4 (08:22→21:12)
[2021-07-05] MEDS: VITAMINS A AND D OINT TP SCH ×4 (08:22→21:12)
[2021-07-05] MEDS: NEOMY/BACITRAC/POLYMI OINT 28.35 GM TUBE TOP SCH ×2 (08:22→21:12)
[2021-07-05] MEDS ORDERED: MORPHINE SULFATE IR 30 MG TABLET PO ONE ×2 (09:00→21:00)
[2021-07-05] MEDS: MORPHINE SULFATE IR 30 MG TABLET GT SCH ×2 (09:03→21:12)
[2021-07-05] MEDS: VANCOMYCIN IV 1,000 MG in IV DEXTROSE 5% 250 ML IV SCH (09:17)
[2021-07-05] MEDS: NORMAL SALINE FLUSH 10 ML DISP.SYRIN IV SCH ×2 (09:17→21:44)
[2021-07-05] MEDS: HYDROGEN PEROXIDE 3% 118 ML BOTTLE TOP SCH ×2 (10:00→21:30)
[2021-07-05] MEDS: GLUCERNA 1.2 1000ML LIQUID GT PRN (12:37)
--- NOTE | 2021-07-05 17:58 | NUR ---
CONTINUE ON VANCOMYCIN IVPB FOR SEPSIS, NO ADVERSE REACTION NOTED, RIGHT UPPER ARM MIDLINE INTACT, FLUSHING WELL AND NO S/S OF INFECTION NOTED. WILL CONTINUE TO MONITOR.
[2021-07-05 20:00] VITALS: BP 113/43
[2021-07-05] MEDS: ACETAzolamide 250 MG TABLET GT SCH (20:00)
[2021-07-05] MEDS: DOCUSATE SODIUM 100 MG/10 ML LIQUID UDC GT SCH (21:11)
[2021-07-05] MEDS: SENNOSIDES 1 TABLET GT SCH (21:12)
[2021-07-05] MEDS: ZINC SULFATE 220 MG CAPSULE GT SCH (21:12)
[2021-07-05] MEDS: MULTIVITAMINS,THERAPEUTIC TABLET GT SCH (21:12)
[2021-07-06] MEDS: VANCOMYCIN IV 1,000 MG in IV DEXTROSE 5% 250 ML IV SCH ×2 (00:44→17:11)
[2021-07-06] MEDS: OMEPRAZOLE 20 MG CAPSULE.DR GT SCH (06:11)
[2021-07-06] MEDS: SODIUM CHLORIDE 1,000 MG TABLET GT SCH ×3 (06:11→22:11)
[2021-07-06] MEDS: ARGININE/GLUTAMINE/CALCIUM BMB 1 EACH POWD.PACK GT SCH ×2 (06:11→17:57)
[2021-07-06] MEDS: GABAPENTIN 300 MG CAPSULE GT SCH ×3 (06:11→22:11)
[2021-07-06 07:53] VITALS: BP 92/49
[2021-07-06] MEDS: HYDROGEN PEROXIDE 3% 118 ML BOTTLE TOP SCH ×2 (08:06→21:00)
[2021-07-06] MEDS: METOPROLOL TARTRATE 25 MG TABLET GT SCH ×2 (08:29→20:52)
[2021-07-06] MEDS: APIXABAN 2.5 MG TABLET GT SCH ×2 (08:29→20:52)
[2021-07-06] MEDS: COD LIVER OIL/ZINC OXIDE OINT 113 GM TUBE TP SCH ×4 (08:31→20:53)
[2021-07-06] MEDS: MORPHINE SULFATE IR 30 MG TABLET GT SCH ×2 (08:31→20:53)
[2021-07-06] MEDS: POVIDONE-IODINE WASH 236 ML BOTTLE TP SCH ×2 (08:31→20:53)
[2021-07-06] MEDS: ASCORBIC ACID 500 MG TABLET GT SCH ×2 (08:31→20:53)
[2021-07-06] MEDS: NEOMY/BACITRAC/POLYMI OINT 28.35 GM TUBE TOP SCH ×2 (08:31→20:53)
[2021-07-06] MEDS: VITAMINS A AND D OINT TP SCH ×4 (08:32→20:54)
[2021-07-06] MEDS: NEOMY/BACITRA/POLYMYXIN B OINT UD PACKET TP SCH ×4 (08:32→20:54)
[2021-07-06] MEDS ORDERED: MORPHINE SULFATE IR 30 MG TABLET PO ONE ×2 (09:00→21:00)
[2021-07-06] MEDS: CHLORHEXIDINE GLUCONATE 15 ML MOUTHWASH MM SCH ×2 (09:10→17:57)
[2021-07-06] MEDS: NORMAL SALINE FLUSH 10 ML DISP.SYRIN IV SCH ×2 (09:45→21:00)
[2021-07-06 20:00] VITALS: BP 105/51
[2021-07-06] MEDS: ACETAzolamide 250 MG TABLET GT SCH (20:47)
[2021-07-06] MEDS: DOCUSATE SODIUM 100 MG/10 ML LIQUID UDC GT SCH (20:47)
[2021-07-06] MEDS: MULTIVITAMINS,THERAPEUTIC TABLET GT SCH (20:53)
[2021-07-06] MEDS: SENNOSIDES 1 TABLET GT SCH (20:53)
[2021-07-06] MEDS: ZINC SULFATE 220 MG CAPSULE GT SCH (20:53)
--- NOTE | 2021-07-06 21:00 | NUR ---
On Vancomycin IV for Sepsis, no adverse reactions noted, DAVE Midline is intact and no signs of any infections. No signs of respiratory distress noted, 02 sat is 98%, kept clean and comfortable, on airborne precaution for Covid- 19 admission protocol. Son (REBECCA) Visited.
[2021-07-07] MEDS: GLUCERNA 1.2 1000ML LIQUID GT PRN ×2 (00:21→22:15)
[2021-07-07] MEDS: OMEPRAZOLE 20 MG CAPSULE.DR GT SCH (05:16)
[2021-07-07] MEDS: GABAPENTIN 300 MG CAPSULE GT SCH ×3 (05:16→21:56)
[2021-07-07] MEDS: ARGININE/GLUTAMINE/CALCIUM BMB 1 EACH POWD.PACK GT SCH ×2 (05:16→17:44)
[2021-07-07] MEDS: SODIUM CHLORIDE 1,000 MG TABLET GT SCH ×3 (05:16→21:56)
[2021-07-07] MEDS: METOPROLOL TARTRATE 25 MG TABLET GT SCH ×2 (08:08→20:39)
[2021-07-07] MEDS: CHLORHEXIDINE GLUCONATE 15 ML MOUTHWASH MM SCH ×2 (08:09→17:44)
[2021-07-07] MEDS: ASCORBIC ACID 500 MG TABLET GT SCH ×2 (08:09→20:40)
[2021-07-07] MEDS: MORPHINE SULFATE IR 30 MG TABLET GT SCH ×2 (08:09→20:40)
[2021-07-07] MEDS: NEOMY/BACITRAC/POLYMI OINT 28.35 GM TUBE TOP SCH ×2 (08:10→20:40)
[2021-07-07] MEDS: NEOMY/BACITRA/POLYMYXIN B OINT UD PACKET TP SCH ×4 (08:10→20:41)
[2021-07-07] MEDS: VITAMINS A AND D OINT TP SCH ×4 (08:10→20:41)
[2021-07-07] MEDS: POVIDONE-IODINE WASH 236 ML BOTTLE TP SCH ×2 (08:10→20:41)
[2021-07-07] MEDS: COD LIVER OIL/ZINC OXIDE OINT 113 GM TUBE TP SCH ×4 (08:10→20:41)
[2021-07-07 08:17] LABS: HEMATOCRIT 24.8 % (31.2-41.9); MEAN CORPUSCULAR HEMOGLOBIN 24.7 uug (24.7-32.8); MEAN CORPUSCULAR VOLUME 77.5 fL (75.5-95.3); PLATELET COUNT (AUTO) 204 K/uL (179-408)
[2021-07-07 08:25] LABS: CREATININE 0.6 mg/dL (0.6-1.3)
[2021-07-07] MEDS: APIXABAN 2.5 MG TABLET GT SCH ×2 (08:47→21:57)
[2021-07-07] MEDS ORDERED: MORPHINE SULFATE IR 30 MG TABLET PO ONE ×2 (09:00→21:00)
[2021-07-07] MEDS: NORMAL SALINE FLUSH 10 ML DISP.SYRIN IV SCH ×2 (09:00→21:00)
[2021-07-07 09:24] VITALS: BP 90/45
[2021-07-07] MEDS: HYDROGEN PEROXIDE 3% 118 ML BOTTLE TOP SCH ×2 (10:00→20:59)
--- NOTE | 2021-07-07 10:00 | NUR ---
Seen and examined by Saumya Aranda,with new orders noted,pt continue on Ivatb ,vancomycin per pharmacy ,no adverse reaction .
[2021-07-07] MEDS: VANCOMYCIN IV 1,000 MG in IV DEXTROSE 5% 250 ML IV SCH (14:56)
--- NOTE | 2021-07-07 16:27 | NUR ---
This SW notified patient's Hal and Son Pete , by email that the next IDT meeting for the patient is scheduled for 07/14/2021 at 11am. This SW asked Hal and Pete to let this SW know if they would like to participate in the meeting by speaker phone.
[2021-07-07 20:00] VITALS: BP 108/52
[2021-07-07] MEDS: DOCUSATE SODIUM 100 MG/10 ML LIQUID UDC GT SCH (20:39)
[2021-07-07] MEDS: ACETAzolamide 250 MG TABLET GT SCH (20:39)
[2021-07-07] MEDS: SENNOSIDES 1 TABLET GT SCH (20:40)
[2021-07-07] MEDS: MULTIVITAMINS,THERAPEUTIC TABLET GT SCH (20:40)
[2021-07-07] MEDS: ZINC SULFATE 220 MG CAPSULE GT SCH (20:40)
--- NOTE | 2021-07-08 01:48 | NUR ---
Still on Vancomycin IV for Sepsis, no adverse reactions noted, DAVE Midline is intact and no signs of any infections. No signs of respiratory distress noted, 02 sat is 100%, kept clean and comfortable, on airborne precaution for Covid-19 admission protocol.
[2021-07-08] MEDS: ARGININE/GLUTAMINE/CALCIUM BMB 1 EACH POWD.PACK GT SCH ×2 (05:14→17:38)
[2021-07-08] MEDS: OMEPRAZOLE 20 MG CAPSULE.DR GT SCH (05:14)
[2021-07-08] MEDS: GABAPENTIN 300 MG CAPSULE GT SCH ×3 (05:14→21:00)
[2021-07-08] MEDS: MODAFINIL 100 MG TABLET GT SCH (05:14)
[2021-07-08] MEDS: SODIUM CHLORIDE 1,000 MG TABLET GT SCH ×3 (05:14→21:00)
[2021-07-08] MEDS ORDERED: MODAFINIL 100 MG TABLET PO ONE (06:00)
[2021-07-08] MEDS: HYDROGEN PEROXIDE 3% 118 ML BOTTLE TOP SCH ×2 (08:08→21:15)
[2021-07-08] MEDS ORDERED: MORPHINE SULFATE IR 30 MG TABLET PO ONE ×2 (09:00→21:00)
[2021-07-08] MEDS: METOPROLOL TARTRATE 25 MG TABLET GT SCH ×2 (09:00→20:48)
[2021-07-08] MEDS: APIXABAN 2.5 MG TABLET GT SCH ×2 (09:06→20:47)
[2021-07-08] MEDS: COD LIVER OIL/ZINC OXIDE OINT 113 GM TUBE TP SCH ×4 (09:15→20:51)
[2021-07-08] MEDS: NORMAL SALINE FLUSH 10 ML DISP.SYRIN IV SCH ×2 (09:15→20:49)
[2021-07-08] MEDS: ASCORBIC ACID 500 MG TABLET GT SCH ×2 (09:15→20:49)
[2021-07-08] MEDS: MORPHINE SULFATE IR 30 MG TABLET GT SCH ×2 (09:15→20:48)
[2021-07-08] MEDS: CHLORHEXIDINE GLUCONATE 15 ML MOUTHWASH MM SCH ×2 (09:15→17:39)
[2021-07-08] MEDS: POVIDONE-IODINE WASH 236 ML BOTTLE TP SCH ×2 (09:15→20:51)
[2021-07-08] MEDS: NEOMY/BACITRAC/POLYMI OINT 28.35 GM TUBE TOP SCH ×2 (09:15→20:50)
[2021-07-08] MEDS: NEOMY/BACITRA/POLYMYXIN B OINT UD PACKET TP SCH ×4 (09:16→20:51)
[2021-07-08] MEDS: VITAMINS A AND D OINT TP SCH ×4 (09:16→20:52)
[2021-07-08] MEDS: VANCOMYCIN IV 1,000 MG in IV DEXTROSE 5% 250 ML IV SCH (13:48)
[2021-07-08 18:23] VITALS: BP 100/56
--- NOTE | 2021-07-08 18:25 | NUR ---
Seen and examined By Dr Baxter ,aware R upper arm is slight swollen,new orders noted and carried out.
--- NOTE | 2021-07-08 18:28 | NUR ---
New orders for warm compresses and elevation of the R upper extremity.
[2021-07-08 20:00] VITALS: BP 115/63
--- NOTE | 2021-07-08 20:00 | NUR ---
Romero is here to visit patient.
--- NOTE | 2021-07-08 20:15 | NUR ---
Discontinued old Midline d/t site was hard, will apply warm compresses as ordered, no discoloration noted, handled gently. A new midline was inserted today in the patient's bedside by PICC Line insertion staff of [facility]. New midline is patent, no signs of any bleeding at this time, patient tolerated procedure well, will continue monitor.
[2021-07-08] MEDS: DOCUSATE SODIUM 100 MG/10 ML LIQUID UDC GT SCH (20:42)
[2021-07-08] MEDS: SENNOSIDES 1 TABLET GT SCH (20:48)
[2021-07-08] MEDS: ZINC SULFATE 220 MG CAPSULE GT SCH (20:49)
[2021-07-08] MEDS: MULTIVITAMINS,THERAPEUTIC TABLET GT SCH (20:49)
[2021-07-09] MEDS ORDERED: MODAFINIL 100 MG TABLET PO ONE (06:00)
[2021-07-09] MEDS: SODIUM CHLORIDE 1,000 MG TABLET GT SCH ×3 (06:41→21:23)
[2021-07-09] MEDS: OMEPRAZOLE 20 MG CAPSULE.DR GT SCH (06:41)
[2021-07-09] MEDS: MODAFINIL 100 MG TABLET GT SCH (06:41)
[2021-07-09] MEDS: ARGININE/GLUTAMINE/CALCIUM BMB 1 EACH POWD.PACK GT SCH ×2 (06:41→17:18)
[2021-07-09] MEDS: GABAPENTIN 300 MG CAPSULE GT SCH ×3 (06:41→21:23)
[2021-07-09 07:52] VITALS: BP 142/79
[2021-07-09] MEDS: HYDROGEN PEROXIDE 3% 118 ML BOTTLE TOP SCH ×2 (08:15→21:08)
[2021-07-09] MEDS: NORMAL SALINE FLUSH 10 ML DISP.SYRIN IV SCH ×2 (09:00→21:22)
[2021-07-09] MEDS ORDERED: MORPHINE SULFATE IR 30 MG TABLET PO ONE ×2 (09:00→21:00)
[2021-07-09] MEDS: METOPROLOL TARTRATE 25 MG TABLET GT SCH ×2 (09:00→21:20)
[2021-07-09] MEDS: APIXABAN 2.5 MG TABLET GT SCH ×2 (09:00→21:20)
[2021-07-09] MEDS: MORPHINE SULFATE IR 30 MG TABLET GT SCH ×2 (09:01→21:21)
[2021-07-09] MEDS: NEOMY/BACITRAC/POLYMI OINT 28.35 GM TUBE TOP SCH ×2 (09:01→21:22)
[2021-07-09] MEDS: CHLORHEXIDINE GLUCONATE 15 ML MOUTHWASH MM SCH ×2 (09:01→17:18)
[2021-07-09] MEDS: NEOMY/BACITRA/POLYMYXIN B OINT UD PACKET TP SCH ×4 (09:01→21:23)
[2021-07-09] MEDS: VITAMINS A AND D OINT TP SCH ×4 (09:01→21:23)
[2021-07-09] MEDS: ASCORBIC ACID 500 MG TABLET GT SCH ×2 (09:01→21:21)
[2021-07-09] MEDS: COD LIVER OIL/ZINC OXIDE OINT 113 GM TUBE TP SCH ×4 (09:01→21:23)
[2021-07-09] MEDS: POVIDONE-IODINE WASH 236 ML BOTTLE TP SCH ×2 (09:01→21:22)
[2021-07-09] MEDS: VANCOMYCIN IV 1,000 MG in IV DEXTROSE 5% 250 ML IV SCH (11:31)
[2021-07-09 20:00] VITALS: BP 112/64
[2021-07-09] MEDS: DOCUSATE SODIUM 100 MG/10 ML LIQUID UDC GT SCH (21:19)
[2021-07-09] MEDS: MULTIVITAMINS,THERAPEUTIC TABLET GT SCH (21:21)
[2021-07-09] MEDS: SENNOSIDES 1 TABLET GT SCH (21:21)
[2021-07-09] MEDS: ZINC SULFATE 220 MG CAPSULE GT SCH (21:22)
--- NOTE | 2021-07-09 21:45 | NUR ---
CONTINUE ON VANCOMYCIN IVPB FOR SEPSIS, NO ADVERSE REACTION NOTED, LEFT UPPER ARM MIDLINE INTACT, FLUSHING WELL AND NO S/S OF INFECTION NOTED. WILL CONTINUE TO MONITOR.
[2021-07-10] MEDS: SODIUM CHLORIDE 1,000 MG TABLET GT SCH ×3 (05:14→22:05)
[2021-07-10] MEDS: MODAFINIL 100 MG TABLET GT SCH (05:14)
[2021-07-10] MEDS: GABAPENTIN 300 MG CAPSULE GT SCH ×3 (05:14→22:05)
[2021-07-10] MEDS: ARGININE/GLUTAMINE/CALCIUM BMB 1 EACH POWD.PACK GT SCH ×2 (05:14→17:13)
[2021-07-10] MEDS: OMEPRAZOLE 20 MG CAPSULE.DR GT SCH (05:14)
[2021-07-10] MEDS ORDERED: MODAFINIL 100 MG TABLET PO ONE (06:00)
[2021-07-10 07:44] VITALS: BP 108/62
[2021-07-10] MEDS: VANCOMYCIN IV 1,000 MG in IV DEXTROSE 5% 250 ML IV SCH (08:02)
[2021-07-10] MEDS: METOPROLOL TARTRATE 25 MG TABLET GT SCH ×2 (08:42→21:00)
[2021-07-10] MEDS: APIXABAN 2.5 MG TABLET GT SCH ×2 (08:43→21:00)
[2021-07-10] MEDS: ASCORBIC ACID 500 MG TABLET GT SCH ×2 (08:43→21:00)
[2021-07-10] MEDS: CHLORHEXIDINE GLUCONATE 15 ML MOUTHWASH MM SCH ×2 (08:44→17:11)
[2021-07-10] MEDS: NEOMY/BACITRAC/POLYMI OINT 28.35 GM TUBE TOP SCH ×2 (08:45→21:00)
[2021-07-10] MEDS: POVIDONE-IODINE WASH 236 ML BOTTLE TP SCH ×2 (08:45→21:00)
[2021-07-10] MEDS: NEOMY/BACITRA/POLYMYXIN B OINT UD PACKET TP SCH ×4 (08:45→21:00)
[2021-07-10] MEDS: COD LIVER OIL/ZINC OXIDE OINT 113 GM TUBE TP SCH ×4 (08:45→21:00)
[2021-07-10] MEDS: VITAMINS A AND D OINT TP SCH ×4 (08:45→21:00)
[2021-07-10] MEDS ORDERED: MORPHINE SULFATE IR 30 MG TABLET PO ONE ×2 (09:00→21:00)
[2021-07-10] MEDS: HYDROGEN PEROXIDE 3% 118 ML BOTTLE TOP SCH ×2 (09:00→21:17)
[2021-07-10] MEDS: NORMAL SALINE FLUSH 10 ML DISP.SYRIN IV SCH ×2 (09:00→21:00)
[2021-07-10] MEDS: MORPHINE SULFATE IR 30 MG TABLET GT SCH ×2 (09:54→21:00)
--- NOTE | 2021-07-10 20:00 | NUR ---
Megan Krause is here to visit patient.
[2021-07-10 20:23] VITALS: BP 136/73
[2021-07-10] MEDS: SENNOSIDES 1 TABLET GT SCH (21:00)
[2021-07-10] MEDS: ZINC SULFATE 220 MG CAPSULE GT SCH (21:00)
[2021-07-10] MEDS: MULTIVITAMINS,THERAPEUTIC TABLET GT SCH (21:00)
[2021-07-10] MEDS: DOCUSATE SODIUM 100 MG/10 ML LIQUID UDC GT SCH (21:00)
[2021-07-11] MEDS: OXYCODONE HCL 5 MG TABLET GT PRN (05:08)
[2021-07-11] MEDS: ARGININE/GLUTAMINE/CALCIUM BMB 1 EACH POWD.PACK GT SCH ×2 (05:13→17:02)
[2021-07-11] MEDS: SODIUM CHLORIDE 1,000 MG TABLET GT SCH ×3 (05:13→21:01)
[2021-07-11] MEDS: OMEPRAZOLE 20 MG CAPSULE.DR GT SCH (05:13)
[2021-07-11] MEDS: MODAFINIL 100 MG TABLET GT SCH (05:13)
[2021-07-11] MEDS: GABAPENTIN 300 MG CAPSULE GT SCH ×3 (05:13→21:01)
[2021-07-11] MEDS: GLUCERNA 1.2 1000ML LIQUID GT PRN (05:14)
[2021-07-11] MEDS ORDERED: MODAFINIL 100 MG TABLET PO ONE (06:00)
[2021-07-11] MEDS: VANCOMYCIN IV 1,000 MG in IV DEXTROSE 5% 250 ML IV SCH (06:58)
--- NOTE | 2021-07-11 07:00 | NUR ---
Continue ON vancomycin IV ATB,no adverse reaction noted.Midline intact,no s/s of infection noted.
[2021-07-11] MEDS: HYDROGEN PEROXIDE 3% 118 ML BOTTLE TOP SCH ×2 (08:00→21:20)
[2021-07-11] MEDS: APIXABAN 2.5 MG TABLET GT SCH ×2 (08:44→21:31)
[2021-07-11] MEDS: METOPROLOL TARTRATE 25 MG TABLET GT SCH ×2 (08:45→20:59)
[2021-07-11] MEDS: NORMAL SALINE FLUSH 10 ML DISP.SYRIN IV SCH ×2 (08:46→21:01)
[2021-07-11] MEDS: MORPHINE SULFATE IR 30 MG TABLET GT SCH ×2 (08:46→21:01)
[2021-07-11] MEDS: ASCORBIC ACID 500 MG TABLET GT SCH ×2 (08:46→21:01)
[2021-07-11] MEDS: CHLORHEXIDINE GLUCONATE 15 ML MOUTHWASH MM SCH ×2 (08:46→17:02)
[2021-07-11] MEDS: NEOMY/BACITRAC/POLYMI OINT 28.35 GM TUBE TOP SCH ×2 (08:46→21:01)
[2021-07-11] MEDS: VITAMINS A AND D OINT TP SCH ×4 (08:47→21:01)
[2021-07-11] MEDS: COD LIVER OIL/ZINC OXIDE OINT 113 GM TUBE TP SCH ×4 (08:47→21:01)
[2021-07-11] MEDS: POVIDONE-IODINE WASH 236 ML BOTTLE TP SCH ×2 (08:47→21:01)
[2021-07-11] MEDS: NEOMY/BACITRA/POLYMYXIN B OINT UD PACKET TP SCH ×4 (08:47→21:01)
[2021-07-11] MEDS ORDERED: MORPHINE SULFATE IR 30 MG TABLET PO ONE ×2 (09:00→21:00)
--- NOTE | 2021-07-11 16:44 | NUR ---
Continue vancomycin Ivatb,no adverse reaction noted.Midline intact,no s/s of infection noted.
[2021-07-11 20:14] VITALS: BP 102/59
[2021-07-11] MEDS: DOCUSATE SODIUM 100 MG/10 ML LIQUID UDC GT SCH (20:53)
[2021-07-11] MEDS: ZINC SULFATE 220 MG CAPSULE GT SCH (21:01)
[2021-07-11] MEDS: SENNOSIDES 1 TABLET GT SCH (21:01)
[2021-07-11] MEDS: MULTIVITAMINS,THERAPEUTIC TABLET GT SCH (21:01)
[2021-07-12] MEDS: VANCOMYCIN IV 1,000 MG in IV DEXTROSE 5% 250 ML IV SCH (05:00)
[2021-07-12] MEDS: SODIUM CHLORIDE 1,000 MG TABLET GT SCH ×3 (05:18→22:21)
[2021-07-12] MEDS: ARGININE/GLUTAMINE/CALCIUM BMB 1 EACH POWD.PACK GT SCH ×2 (05:18→17:27)
[2021-07-12] MEDS: GABAPENTIN 300 MG CAPSULE GT SCH ×3 (05:18→22:21)
[2021-07-12] MEDS: MODAFINIL 100 MG TABLET GT SCH (05:19)
[2021-07-12] MEDS: OMEPRAZOLE 20 MG CAPSULE.DR GT SCH (05:19)
--- NOTE | 2021-07-12 05:30 | NUR ---
Continue on Vancomycin IV for Sepsis, no adverse reactions noted, PRAVEEN Midline is intact and no signs of any infections. on airborne precaution for Covid-19 admission protocol.
[2021-07-12] MEDS ORDERED: MODAFINIL 100 MG TABLET PO ONE (06:00)
[2021-07-12] MEDS: APIXABAN 2.5 MG TABLET GT SCH ×2 (08:31→21:00)
[2021-07-12] MEDS: METOPROLOL TARTRATE 25 MG TABLET GT SCH ×2 (08:31→21:00)
[2021-07-12] MEDS: COD LIVER OIL/ZINC OXIDE OINT 113 GM TUBE TP SCH ×4 (08:32→21:00)
[2021-07-12] MEDS: POVIDONE-IODINE WASH 236 ML BOTTLE TP SCH ×2 (08:32→21:00)
[2021-07-12] MEDS: NEOMY/BACITRA/POLYMYXIN B OINT UD PACKET TP SCH ×4 (08:32→21:00)
[2021-07-12] MEDS: NORMAL SALINE FLUSH 10 ML DISP.SYRIN IV SCH ×2 (08:32→21:00)
[2021-07-12] MEDS: CHLORHEXIDINE GLUCONATE 15 ML MOUTHWASH MM SCH ×2 (08:32→17:27)
[2021-07-12] MEDS: MORPHINE SULFATE IR 30 MG TABLET GT SCH ×2 (08:32→21:00)
[2021-07-12] MEDS: NEOMY/BACITRAC/POLYMI OINT 28.35 GM TUBE TOP SCH ×2 (08:32→21:00)
[2021-07-12] MEDS: ASCORBIC ACID 500 MG TABLET GT SCH ×2 (08:32→21:00)
[2021-07-12] MEDS: VITAMINS A AND D OINT TP SCH ×4 (08:33→21:00)
[2021-07-12] MEDS: HYDROGEN PEROXIDE 3% 118 ML BOTTLE TOP SCH ×2 (08:43→21:15)
[2021-07-12] MEDS ORDERED: MORPHINE SULFATE IR 30 MG TABLET PO ONE ×2 (09:00→21:00)
--- NOTE | 2021-07-12 18:00 | NUR ---
Continue on Vancomycin IVATB every 22 hours,no adverse reaction noted.midline intact,no s/s of infection noted.
[2021-07-12 20:37] VITALS: BP 107/64
[2021-07-12] MEDS: SENNOSIDES 1 TABLET GT SCH (21:00)
[2021-07-12] MEDS: MULTIVITAMINS,THERAPEUTIC TABLET GT SCH (21:00)
[2021-07-12] MEDS: ZINC SULFATE 220 MG CAPSULE GT SCH (21:00)
[2021-07-12] MEDS: DOCUSATE SODIUM 100 MG/10 ML LIQUID UDC GT SCH (21:00)
--- NOTE | 2021-07-12 22:33 | NUR ---
Still on Vancomycin 1 gram IVPB every 22 hours for sepsis, no adverse reactions noted, PRAVEEN PICC is intact and no signs of infiltration, on PUI isolation precaution as per covid 19 admission protocol, kept patient clean and comfortable.
[2021-07-12] MEDS: GLUCERNA 1.2 1000ML LIQUID GT PRN (22:43)
[2021-07-13] MEDS: VANCOMYCIN IV 1,000 MG in IV DEXTROSE 5% 250 ML IV SCH (03:22)
[2021-07-13] MEDS ORDERED: MODAFINIL 100 MG TABLET PO ONE (06:00)
[2021-07-13] MEDS: SODIUM CHLORIDE 1,000 MG TABLET GT SCH ×3 (06:10→21:55)
[2021-07-13] MEDS: ARGININE/GLUTAMINE/CALCIUM BMB 1 EACH POWD.PACK GT SCH ×2 (06:10→18:13)
[2021-07-13] MEDS: MODAFINIL 100 MG TABLET GT SCH (06:12)
[2021-07-13] MEDS: GABAPENTIN 300 MG CAPSULE GT SCH ×3 (06:12→21:55)
[2021-07-13] MEDS: OMEPRAZOLE 20 MG CAPSULE.DR GT SCH (06:12)
[2021-07-13 07:56] LABS: HEMATOCRIT 24.8 % (31.2-41.9); MEAN CORPUSCULAR HEMOGLOBIN 24.3 uug (24.7-32.8); MEAN CORPUSCULAR VOLUME 75.8 fL (75.5-95.3); PLATELET COUNT (AUTO) 255 K/uL (179-408)
[2021-07-13 08:17] VITALS: BP 109/62
[2021-07-13 08:24] LABS: BILIRUBIN,TOTAL 0.4 mg/dL (0.2-1.0); CREATININE 0.6 mg/dL (0.6-1.3); MAGNESIUM 2.4 mg/dL (1.8-2.4); PHOSPHOROUS 6.2 mg/dL (2.5-4.9); POTASSIUM 4.1 mmol/L (3.5-5.1); TOTAL PROTEIN, SERUM 7.4 g/dL (6.4-8.2)
[2021-07-13] MEDS: METOPROLOL TARTRATE 25 MG TABLET GT SCH ×2 (08:54→21:45)
[2021-07-13] MEDS: APIXABAN 2.5 MG TABLET GT SCH ×2 (08:54→21:57)
[2021-07-13] MEDS: MORPHINE SULFATE IR 30 MG TABLET GT SCH ×2 (08:55→21:52)
[2021-07-13] MEDS: COD LIVER OIL/ZINC OXIDE OINT 113 GM TUBE TP SCH ×4 (08:56→21:53)
[2021-07-13] MEDS: CHLORHEXIDINE GLUCONATE 15 ML MOUTHWASH MM SCH ×2 (08:56→17:00)
[2021-07-13] MEDS: NEOMY/BACITRAC/POLYMI OINT 28.35 GM TUBE TOP SCH ×2 (08:56→21:53)
[2021-07-13] MEDS: VITAMINS A AND D OINT TP SCH ×3 (08:56→21:53)
[2021-07-13] MEDS: ASCORBIC ACID 500 MG TABLET GT SCH ×2 (08:56→21:47)
[2021-07-13] MEDS: NEOMY/BACITRA/POLYMYXIN B OINT UD PACKET TP SCH ×3 (08:56→21:53)
[2021-07-13] MEDS: POVIDONE-IODINE WASH 236 ML BOTTLE TP SCH ×2 (08:56→21:53)
[2021-07-13] MEDS ORDERED: MORPHINE SULFATE IR 30 MG TABLET PO ONE ×2 (09:00→21:00)
[2021-07-13] MEDS: NORMAL SALINE FLUSH 10 ML DISP.SYRIN IV SCH ×2 (09:00→21:52)
[2021-07-13] MEDS: HYDROGEN PEROXIDE 3% 118 ML BOTTLE TOP SCH ×2 (09:00→21:11)
[2021-07-13] MEDS: DOCUSATE SODIUM 100 MG/10 ML LIQUID UDC GT SCH (21:45)
[2021-07-13] MEDS: MULTIVITAMINS,THERAPEUTIC TABLET GT SCH (21:46)
[2021-07-13] MEDS: SENNOSIDES 1 TABLET GT SCH (21:46)
[2021-07-13] MEDS: ZINC SULFATE 220 MG CAPSULE GT SCH (21:52)
[2021-07-14] MEDS: GLUCERNA 1.2 1000ML LIQUID GT PRN
[2021-07-14] MEDS: VANCOMYCIN IV 1,000 MG in IV DEXTROSE 5% 250 ML IV SCH ×2 (01:07→21:58)
--- NOTE | 2021-07-14 01:15 | NUR ---
VANCOMYCIN TROUGH =12.5 CONTINUE VANCOMYCIN 1 GM IVPB PER PHARMACY TO DOSE.NO A/R NOTED.CONTINUE ON ISOLATION FOR PUI.NO S/S OF PAIN.KEPT CLEAN AND COMFORTABLE.
[2021-07-14] MEDS ORDERED: MODAFINIL 100 MG TABLET PO ONE (06:00)
[2021-07-14] MEDS: SODIUM CHLORIDE 1,000 MG TABLET GT SCH ×3 (06:45→21:21)
[2021-07-14] MEDS: ARGININE/GLUTAMINE/CALCIUM BMB 1 EACH POWD.PACK GT SCH ×2 (06:45→17:13)
[2021-07-14] MEDS: GABAPENTIN 300 MG CAPSULE GT SCH ×3 (06:45→21:22)
[2021-07-14] MEDS: OMEPRAZOLE 20 MG CAPSULE.DR GT SCH (06:46)
[2021-07-14] MEDS: MODAFINIL 100 MG TABLET GT SCH (06:46)
[2021-07-14 07:21] LABS: MEAN CORPUSCULAR HEMOGLOBIN 24.8 uug (24.7-32.8); PLATELET COUNT (AUTO) 269 K/uL (179-408)
[2021-07-14 07:38] LABS: CREATININE 0.7 mg/dL (0.6-1.3); POTASSIUM 4.2 mmol/L (3.5-5.1)
[2021-07-14] MEDS: HYDROGEN PEROXIDE 3% 118 ML BOTTLE TOP SCH ×2 (08:05→21:00)
[2021-07-14] MEDS ORDERED: MORPHINE SULFATE IR 30 MG TABLET PO ONE ×2 (09:00→21:00)
[2021-07-14] MEDS: NORMAL SALINE FLUSH 10 ML DISP.SYRIN IV SCH ×2 (09:00→21:18)
[2021-07-14] MEDS: METOPROLOL TARTRATE 25 MG TABLET GT SCH ×2 (09:25→21:21)
[2021-07-14] MEDS: APIXABAN 2.5 MG TABLET GT SCH ×2 (09:25→21:20)
[2021-07-14] MEDS: CHLORHEXIDINE GLUCONATE 15 ML MOUTHWASH MM SCH ×2 (09:26→17:13)
[2021-07-14] MEDS: MORPHINE SULFATE IR 30 MG TABLET GT SCH ×2 (09:26→21:18)
[2021-07-14] MEDS: NEOMY/BACITRA/POLYMYXIN B OINT UD PACKET TP SCH ×2 (09:26→21:19)
[2021-07-14] MEDS: ASCORBIC ACID 500 MG TABLET GT SCH ×2 (09:26→21:18)
[2021-07-14] MEDS: NEOMY/BACITRAC/POLYMI OINT 28.35 GM TUBE TOP SCH ×2 (09:26→21:19)
[2021-07-14] MEDS: COD LIVER OIL/ZINC OXIDE OINT 113 GM TUBE TP SCH ×4 (09:26→21:19)
[2021-07-14] MEDS: POVIDONE-IODINE WASH 236 ML BOTTLE TP SCH ×2 (09:26→21:19)
[2021-07-14] MEDS: VITAMINS A AND D OINT TP SCH ×2 (09:27→21:19)
--- NOTE | 2021-07-14 14:04 | NUR ---
Clinical Social Work Note Patient has an optometry consult by Dr. Lopez. The paperwork (Optometry Consult) was filed in the pt.s chart and the patients family was notified.
--- NOTE | 2021-07-14 16:02 | NUR ---
INTERDISCIPLINARY PLAN OF CARE CONFERENCE was held today. Pt's Romero participated in the meeting by speaker phone and SW helped with translation. Dr. Baxter and the Interdisciplinary Team reviewed the current plan of care in detail. RN reported on patient's medical condition and informed of patient being able to tolerate internal feeding. See RN IDT conference notes. See all disciplines IDT notes and physician's progress notes for additional details. Romero's questions were addressed by the IDT team.
[2021-07-14] MEDS: DOCUSATE SODIUM 100 MG/10 ML LIQUID UDC GT SCH (21:16)
[2021-07-14] MEDS: MULTIVITAMINS,THERAPEUTIC TABLET GT SCH (21:18)
[2021-07-14] MEDS: ZINC SULFATE 220 MG CAPSULE GT SCH (21:18)
[2021-07-14] MEDS: SENNOSIDES 1 TABLET GT SCH (21:18)
[2021-07-15] MEDS: ONDANSETRON HCL 4 MG TABLET GT PRN (05:00)
[2021-07-15] MEDS ORDERED: MODAFINIL 100 MG TABLET PO ONE (06:00)
[2021-07-15] MEDS: ARGININE/GLUTAMINE/CALCIUM BMB 1 EACH POWD.PACK GT SCH ×2 (06:49→17:14)
[2021-07-15] MEDS: GABAPENTIN 300 MG CAPSULE GT SCH ×3 (06:49→21:35)
[2021-07-15] MEDS: OMEPRAZOLE 20 MG CAPSULE.DR GT SCH (06:49)
[2021-07-15] MEDS: SODIUM CHLORIDE 1,000 MG TABLET GT SCH ×3 (06:49→21:35)
[2021-07-15] MEDS: MODAFINIL 100 MG TABLET GT SCH (06:49)
[2021-07-15] MEDS ORDERED: MORPHINE SULFATE IR 30 MG TABLET PO ONE ×2 (09:00→21:00)
[2021-07-15] MEDS: METOPROLOL TARTRATE 25 MG TABLET GT SCH ×2 (09:00→21:55)
[2021-07-15] MEDS: HYDROGEN PEROXIDE 3% 118 ML BOTTLE TOP SCH ×2 (09:00→21:23)
[2021-07-15] MEDS: APIXABAN 2.5 MG TABLET GT SCH ×2 (09:45→21:52)
[2021-07-15] MEDS: CHLORHEXIDINE GLUCONATE 15 ML MOUTHWASH MM SCH ×2 (09:48→17:14)
[2021-07-15] MEDS: POVIDONE-IODINE WASH 236 ML BOTTLE TP SCH ×2 (09:48→21:27)
[2021-07-15] MEDS: MORPHINE SULFATE IR 30 MG TABLET GT SCH ×2 (09:48→21:25)
[2021-07-15] MEDS: ASCORBIC ACID 500 MG TABLET GT SCH ×2 (09:48→21:26)
[2021-07-15] MEDS: NEOMY/BACITRAC/POLYMI OINT 28.35 GM TUBE TOP SCH ×2 (09:48→21:27)
[2021-07-15] MEDS: NORMAL SALINE FLUSH 10 ML DISP.SYRIN IV SCH ×2 (09:48→21:27)
[2021-07-15] MEDS: NEOMY/BACITRA/POLYMYXIN B OINT UD PACKET TP SCH ×2 (09:49→21:28)
[2021-07-15] MEDS: COD LIVER OIL/ZINC OXIDE OINT 113 GM TUBE TP SCH ×4 (09:49→21:28)
[2021-07-15] MEDS: VITAMINS A AND D OINT TP SCH ×2 (09:49→21:28)
[2021-07-15] MEDS: VANCOMYCIN IV 1,000 MG in IV DEXTROSE 5% 250 ML IV SCH (17:00)
[2021-07-15] MEDS: DOCUSATE SODIUM 100 MG/10 ML LIQUID UDC GT SCH (21:25)
[2021-07-15] MEDS: MULTIVITAMINS,THERAPEUTIC TABLET GT SCH (21:26)
[2021-07-15] MEDS: SENNOSIDES 1 TABLET GT SCH (21:26)
[2021-07-15] MEDS: ZINC SULFATE 220 MG CAPSULE GT SCH (21:26)
[2021-07-16] MEDS: ARGININE/GLUTAMINE/CALCIUM BMB 1 EACH POWD.PACK GT SCH ×2 (05:16→17:58)
[2021-07-16] MEDS: SODIUM CHLORIDE 1,000 MG TABLET GT SCH ×3 (05:16→22:12)
[2021-07-16] MEDS: GABAPENTIN 300 MG CAPSULE GT SCH ×3 (05:16→22:12)
[2021-07-16] MEDS: OMEPRAZOLE 20 MG CAPSULE.DR GT SCH (05:17)
[2021-07-16] MEDS: MODAFINIL 100 MG TABLET GT SCH (05:17)
[2021-07-16] MEDS ORDERED: MODAFINIL 100 MG TABLET PO ONE (06:00)
[2021-07-16 07:40] VITALS: BP 98/68
[2021-07-16] MEDS: HYDROGEN PEROXIDE 3% 118 ML BOTTLE TOP SCH ×2 (07:51→20:07)
[2021-07-16] MEDS: APIXABAN 2.5 MG TABLET GT SCH ×2 (08:39→21:38)
[2021-07-16] MEDS: ASCORBIC ACID 500 MG TABLET GT SCH ×2 (08:40→20:15)
[2021-07-16] MEDS: METOPROLOL TARTRATE 25 MG TABLET GT SCH ×2 (08:40→21:00)
[2021-07-16] MEDS: MORPHINE SULFATE IR 30 MG TABLET GT SCH ×2 (08:40→20:15)
[2021-07-16] MEDS: CHLORHEXIDINE GLUCONATE 15 ML MOUTHWASH MM SCH ×2 (08:41→17:58)
[2021-07-16] MEDS: POVIDONE-IODINE WASH 236 ML BOTTLE TP SCH ×2 (08:41→20:16)
[2021-07-16] MEDS: VITAMINS A AND D OINT TP SCH ×2 (08:41→20:16)
[2021-07-16] MEDS: NEOMY/BACITRAC/POLYMI OINT 28.35 GM TUBE TOP SCH ×2 (08:41→20:16)
[2021-07-16] MEDS: COD LIVER OIL/ZINC OXIDE OINT 113 GM TUBE TP SCH ×4 (08:41→20:16)
[2021-07-16] MEDS: NEOMY/BACITRA/POLYMYXIN B OINT UD PACKET TP SCH ×2 (08:41→20:16)
[2021-07-16] MEDS: NORMAL SALINE FLUSH 10 ML DISP.SYRIN IV SCH ×2 (09:00→21:00)
[2021-07-16] MEDS ORDERED: MORPHINE SULFATE IR 30 MG TABLET PO ONE ×2 (09:00→21:00)
[2021-07-16] MEDS: VANCOMYCIN IV 1,000 MG in IV DEXTROSE 5% 250 ML IV SCH (13:00)
--- NOTE | 2021-07-16 13:10 | NUR ---
VANCOMYCIN TROUGH 17 ,PER [facility] PHARMACIST DAVID CONTINUE SAME DOSE.
[2021-07-16] MEDS: DOCUSATE SODIUM 100 MG/10 ML LIQUID UDC GT SCH (20:09)
[2021-07-16] MEDS: MULTIVITAMINS,THERAPEUTIC TABLET GT SCH (20:15)
[2021-07-16] MEDS: SENNOSIDES 1 TABLET GT SCH (20:15)
[2021-07-16] MEDS: ZINC SULFATE 220 MG CAPSULE GT SCH (20:15)
[2021-07-17] MEDS ORDERED: MODAFINIL 100 MG TABLET PO ONE (06:00)
[2021-07-17] MEDS: OMEPRAZOLE 20 MG CAPSULE.DR GT SCH (06:24)
[2021-07-17] MEDS: ARGININE/GLUTAMINE/CALCIUM BMB 1 EACH POWD.PACK GT SCH ×2 (06:24→17:53)
[2021-07-17] MEDS: GLUCERNA 1.2 1000ML LIQUID GT PRN ×2 (06:24→23:14)
[2021-07-17] MEDS: SODIUM CHLORIDE 1,000 MG TABLET GT SCH ×3 (06:24→21:30)
[2021-07-17] MEDS: MODAFINIL 100 MG TABLET GT SCH (06:24)
[2021-07-17] MEDS: GABAPENTIN 300 MG CAPSULE GT SCH ×3 (06:24→21:30)
[2021-07-17 07:29] VITALS: BP 102/57
[2021-07-17] MEDS: HYDROGEN PEROXIDE 3% 118 ML BOTTLE TOP SCH ×2 (08:03→20:53)
[2021-07-17] MEDS: COD LIVER OIL/ZINC OXIDE OINT 113 GM TUBE TP SCH ×4 (09:00→21:29)
[2021-07-17] MEDS: NORMAL SALINE FLUSH 10 ML DISP.SYRIN IV SCH ×2 (09:00→21:00)
[2021-07-17] MEDS: POVIDONE-IODINE WASH 236 ML BOTTLE TP SCH ×2 (09:00→21:29)
[2021-07-17] MEDS: VANCOMYCIN IV 1,000 MG in IV DEXTROSE 5% 250 ML IV SCH (09:00)
[2021-07-17] MEDS: NEOMY/BACITRA/POLYMYXIN B OINT UD PACKET TP SCH ×2 (09:00→21:29)
[2021-07-17] MEDS: NEOMY/BACITRAC/POLYMI OINT 28.35 GM TUBE TOP SCH (09:00)
[2021-07-17] MEDS ORDERED: MORPHINE SULFATE IR 30 MG TABLET PO ONE ×2 (09:00→21:00)
[2021-07-17] MEDS: VITAMINS A AND D OINT TP SCH ×2 (09:00→21:30)
[2021-07-17] MEDS: METOPROLOL TARTRATE 25 MG TABLET GT SCH ×2 (09:00→20:33)
[2021-07-17] MEDS: APIXABAN 2.5 MG TABLET GT SCH ×2 (09:07→21:30)
[2021-07-17] MEDS: MORPHINE SULFATE IR 30 MG TABLET GT SCH ×2 (09:10→20:33)
[2021-07-17] MEDS: CHLORHEXIDINE GLUCONATE 15 ML MOUTHWASH MM SCH ×2 (09:10→17:53)
[2021-07-17] MEDS: ASCORBIC ACID 500 MG TABLET GT SCH ×2 (09:10→20:33)
--- NOTE | 2021-07-17 13:00 | NUR ---
PT. WAS SEEN AND EXAMINED BY DPM AND WITH NNO.
--- NOTE | 2021-07-17 18:00 | NUR ---
NO A/R TO IV ATB TX VANCOMYCIN ,MID LINE LEFT ARM INTACT AND PATENT.LOCAL DRESSING CHANGED.
[2021-07-17 20:00] VITALS: BP 120/67
[2021-07-17] MEDS: SENNOSIDES 1 TABLET GT SCH (20:33)
[2021-07-17] MEDS: DOCUSATE SODIUM 100 MG/10 ML LIQUID UDC GT SCH (20:33)
[2021-07-17] MEDS: ZINC SULFATE 220 MG CAPSULE GT SCH (20:33)
[2021-07-17] MEDS: MULTIVITAMINS,THERAPEUTIC TABLET GT SCH (20:33)
--- NOTE | 2021-07-17 23:30 | NUR ---
Continues on Vancomycin 1 gram IVPB every 20 hours for sepsis, no adverse reactions noted, PRAVEEN PICC is intact and no signs of infiltration, kept patient clean and comfortable.
[2021-07-18] MEDS: VANCOMYCIN IV 1,000 MG in IV DEXTROSE 5% 250 ML IV SCH (05:00)
[2021-07-18] MEDS: MODAFINIL 100 MG TABLET GT SCH (05:26)
[2021-07-18] MEDS: SODIUM CHLORIDE 1,000 MG TABLET GT SCH ×3 (05:26→21:09)
[2021-07-18] MEDS: OMEPRAZOLE 20 MG CAPSULE.DR GT SCH (05:26)
[2021-07-18] MEDS: ARGININE/GLUTAMINE/CALCIUM BMB 1 EACH POWD.PACK GT SCH ×2 (05:26→17:26)
[2021-07-18] MEDS: GABAPENTIN 300 MG CAPSULE GT SCH ×3 (05:26→21:09)
--- NOTE | 2021-07-18 06:21 | NUR ---
Noted with some bleeding from the trach when the patient cough, cold lavage done, no bleeding noted after cold lavage, patient is currently on Eliquis,will handle very gently and will continue monitoring.
[2021-07-18] MEDS: HYDROGEN PEROXIDE 3% 118 ML BOTTLE TOP SCH ×2 (07:34→21:28)
[2021-07-18 07:44] VITALS: BP 105/60
[2021-07-18] MEDS: METOPROLOL TARTRATE 25 MG TABLET GT SCH ×2 (09:00→20:21)
[2021-07-18] MEDS ORDERED: MORPHINE SULFATE IR 30 MG TABLET PO ONE ×2 (09:00→21:00)
[2021-07-18] MEDS: APIXABAN 2.5 MG TABLET GT SCH (09:00)
[2021-07-18] MEDS: NORMAL SALINE FLUSH 10 ML DISP.SYRIN IV SCH ×2 (09:00→21:00)
[2021-07-18] MEDS: ASCORBIC ACID 500 MG TABLET GT SCH ×2 (09:26→20:22)
[2021-07-18] MEDS: CHLORHEXIDINE GLUCONATE 15 ML MOUTHWASH MM SCH ×2 (09:26→17:26)
[2021-07-18] MEDS: MORPHINE SULFATE IR 30 MG TABLET GT SCH ×2 (09:26→20:22)
[2021-07-18] MEDS: POVIDONE-IODINE WASH 236 ML BOTTLE TP SCH ×2 (09:26→21:09)
[2021-07-18] MEDS: NEOMY/BACITRA/POLYMYXIN B OINT UD PACKET TP SCH ×2 (09:27→21:09)
[2021-07-18] MEDS: COD LIVER OIL/ZINC OXIDE OINT 113 GM TUBE TP SCH ×4 (09:27→21:09)
[2021-07-18] MEDS: VITAMINS A AND D OINT TP SCH ×2 (09:27→21:09)
[2021-07-18] MEDS: GLUCERNA 1.2 1000ML LIQUID GT PRN (17:26)
[2021-07-18] MEDS: DOCUSATE SODIUM 100 MG/10 ML LIQUID UDC GT SCH (20:21)
[2021-07-18] MEDS: SENNOSIDES 1 TABLET GT SCH (20:22)
[2021-07-18] MEDS: ZINC SULFATE 220 MG CAPSULE GT SCH (20:22)
[2021-07-18] MEDS: MULTIVITAMINS,THERAPEUTIC TABLET GT SCH (20:22)
--- NOTE | 2021-07-18 22:00 | NUR ---
vanco trough 16.3 continue vancomycin 1gm ivpb for sepsis no A/R noted.
--- NOTE | 2021-07-18 22:44 | NUR ---
Still on Vancomycin 1 gram IV for sepsis, no adverse reactions noted, PRAVEEN PICC is intact and no signs of infiltration, No tracheal bleeding noted at this time, will continue monitor.
[2021-07-19] MEDS: OXYCODONE HCL 5 MG TABLET GT PRN (01:03)
[2021-07-19] MEDS: VANCOMYCIN IV 1,000 MG in IV DEXTROSE 5% 250 ML IV SCH ×2 (01:10→21:38)
[2021-07-19] MEDS: SODIUM CHLORIDE 1,000 MG TABLET GT SCH ×3 (05:56→21:11)
[2021-07-19] MEDS: OMEPRAZOLE 20 MG CAPSULE.DR GT SCH (05:56)
[2021-07-19] MEDS: GABAPENTIN 300 MG CAPSULE GT SCH ×3 (05:56→21:11)
[2021-07-19] MEDS: ARGININE/GLUTAMINE/CALCIUM BMB 1 EACH POWD.PACK GT SCH ×2 (05:56→17:28)
[2021-07-19] MEDS: MODAFINIL 100 MG TABLET GT SCH (05:56)
[2021-07-19] MEDS: HYDROGEN PEROXIDE 3% 118 ML BOTTLE TOP SCH ×2 (08:18→20:52)
[2021-07-19] MEDS ORDERED: MORPHINE SULFATE IR 30 MG TABLET PO ONE ×2 (09:00→21:00)
[2021-07-19] MEDS: METOPROLOL TARTRATE 25 MG TABLET GT SCH ×2 (09:04→20:15)
[2021-07-19] MEDS: ASCORBIC ACID 500 MG TABLET GT SCH ×2 (09:05→20:16)
[2021-07-19] MEDS: CHLORHEXIDINE GLUCONATE 15 ML MOUTHWASH MM SCH ×2 (09:05→17:23)
[2021-07-19] MEDS: MORPHINE SULFATE IR 30 MG TABLET GT SCH ×2 (09:05→20:16)
[2021-07-19] MEDS: VITAMINS A AND D OINT TP SCH ×2 (09:06→21:11)
[2021-07-19] MEDS: POVIDONE-IODINE WASH 236 ML BOTTLE TP SCH ×2 (09:06→21:11)
[2021-07-19] MEDS: NEOMY/BACITRA/POLYMYXIN B OINT UD PACKET TP SCH ×2 (09:06→21:11)
[2021-07-19] MEDS: COD LIVER OIL/ZINC OXIDE OINT 113 GM TUBE TP SCH ×4 (09:06→21:11)
[2021-07-19] MEDS: NORMAL SALINE FLUSH 10 ML DISP.SYRIN IV SCH ×2 (09:10→21:38)
--- NOTE | 2021-07-19 10:55 | NUR ---
SLIGHT TRACEAL BLEEDING AT THIS TIME.
--- NOTE | 2021-07-19 15:58 | NUR ---
NEW ORDER FROM DR RODRIGUEZ WAS CARRIED OUT RECOMMENDED BY [facility].
[2021-07-19] MEDS: DOCUSATE SODIUM 100 MG/10 ML LIQUID UDC GT SCH (20:15)
[2021-07-19] MEDS: MULTIVITAMINS,THERAPEUTIC TABLET GT SCH (20:16)
[2021-07-19] MEDS: SENNOSIDES 1 TABLET GT SCH (20:16)
[2021-07-19] MEDS: ZINC SULFATE 220 MG CAPSULE GT SCH (20:16)
[2021-07-20] MEDS: OXYCODONE IR 10 MG GT PRN (01:06)
[2021-07-20] MEDS: ARGININE/GLUTAMINE/CALCIUM BMB 1 EACH POWD.PACK GT SCH ×2 (05:02→18:09)
[2021-07-20] MEDS: MODAFINIL 100 MG TABLET GT SCH (05:02)
[2021-07-20] MEDS: OMEPRAZOLE 20 MG CAPSULE.DR GT SCH (05:02)
[2021-07-20] MEDS: GABAPENTIN 300 MG CAPSULE GT SCH ×3 (05:02→22:02)
[2021-07-20] MEDS: SODIUM CHLORIDE 1,000 MG TABLET GT SCH ×3 (05:02→22:02)
[2021-07-20] MEDS: HYDROGEN PEROXIDE 3% 118 ML BOTTLE TOP SCH ×2 (08:15→21:00)
[2021-07-20] MEDS: METOPROLOL TARTRATE 25 MG TABLET GT SCH ×2 (08:30→22:00)
[2021-07-20] MEDS: VITAMINS A AND D OINT TP SCH ×2 (08:31→21:00)
[2021-07-20] MEDS: CHLORHEXIDINE GLUCONATE 15 ML MOUTHWASH MM SCH ×2 (08:31→17:00)
[2021-07-20] MEDS: POVIDONE-IODINE WASH 236 ML BOTTLE TP SCH ×2 (08:31→21:00)
[2021-07-20] MEDS: COD LIVER OIL/ZINC OXIDE OINT 113 GM TUBE TP SCH ×4 (08:31→21:00)
[2021-07-20] MEDS: ASCORBIC ACID 500 MG TABLET GT SCH ×2 (08:31→21:00)
[2021-07-20] MEDS: NEOMY/BACITRA/POLYMYXIN B OINT UD PACKET TP SCH ×2 (08:31→21:00)
[2021-07-20] MEDS: MORPHINE SULFATE IR 30 MG TABLET GT SCH ×2 (08:31→22:00)
[2021-07-20] MEDS: NORMAL SALINE FLUSH 10 ML DISP.SYRIN IV SCH ×2 (09:00→21:00)
--- NOTE | 2021-07-20 12:10 | NUR ---
NEW ORDER WSA CARRIED OUT FROM LUDY Matias FOR NEUROLOGY CONSULT AND DR. KWONG WAS NOTIFIED.
--- NOTE | 2021-07-20 12:12 | NUR ---
PT. WAS SEEN AND EVALUATED BY LUDY Matias AND AWARE OF STILL PT. SHOWS TRACHEAL BLEEDING ON AND OFF AND THAT PER PT'S SHE IS A "BLEEDER" AND SHE INSTRUCTED RT. TO DO TRACH ICE LAVAGE AND GENTLE SUCTION AND ELIQUIS WILL CONT. ON HOLD.
--- NOTE | 2021-07-20 13:47 | NUR ---
This SW notified patient's Romero and son Pete by email that the next IDT meeting for the patient is scheduled for 07/28/2021 at 11am. This SW asked Romero and Pete to let this SW know if she would like to participate in the meeting by speaker phone.
--- NOTE | 2021-07-20 14:58 | NUR ---
Eliquis continue to hold. Pt. still bleeding in the trach. Family is aware. Will continue to monitor. Pt. stable and no resp. distress noted at this time.
--- NOTE | 2021-07-20 15:00 | NUR ---
ADMISSION WT 145#ON 06/29/21,WEEKLY WT 07/06/21 141#,WEEKLY WT 07/13/21 143# ,WT TODAY 07/20/21 145#.
[2021-07-20] MEDS: VANCOMYCIN IV 1,000 MG in IV DEXTROSE 5% 250 ML IV SCH (17:57)
[2021-07-20] MEDS: DOCUSATE SODIUM 100 MG/10 ML LIQUID UDC GT SCH (21:59)
[2021-07-20] MEDS: SENNOSIDES 1 TABLET GT SCH (22:00)
[2021-07-20] MEDS: ZINC SULFATE 220 MG CAPSULE GT SCH (22:01)
[2021-07-20] MEDS: MULTIVITAMINS,THERAPEUTIC TABLET GT SCH (22:01)
[2021-07-21] MEDS: GABAPENTIN 300 MG CAPSULE GT SCH ×3 (05:13→21:32)
[2021-07-21] MEDS: SODIUM CHLORIDE 1,000 MG TABLET GT SCH ×3 (05:13→21:32)
[2021-07-21] MEDS: ARGININE/GLUTAMINE/CALCIUM BMB 1 EACH POWD.PACK GT SCH (05:13)
[2021-07-21] MEDS: MODAFINIL 100 MG TABLET GT SCH (05:14)
[2021-07-21] MEDS: OMEPRAZOLE 20 MG CAPSULE.DR GT SCH (05:14)
--- NOTE | 2021-07-21 06:28 | NUR ---
Wilfred Held as ordered Patient at the [facility] episodes of moderate bleeding, RT and nurse at bed side RT has done ICE Lavage helped bleeding stopped, gentle suction done. Will continue to monitor. Pt. stable and no respiratory distress noted at this time. Will keep close observation.
[2021-07-21 07:39] LABS: MEAN CORPUSCULAR HEMOGLOBIN 24.3 uug (24.7-32.8); MEAN CORPUSCULAR VOLUME 75.4 fL (75.5-95.3); PLATELET COUNT (AUTO) 246 K/uL (179-408)
[2021-07-21] MEDS: HYDROGEN PEROXIDE 3% 118 ML BOTTLE TOP SCH ×2 (07:56→22:00)
[2021-07-21 08:01] LABS: CREATININE 0.6 mg/dL (0.6-1.3); POTASSIUM 4.3 mmol/L (3.5-5.1)
[2021-07-21] MEDS: METOPROLOL TARTRATE 25 MG TABLET GT SCH ×2 (09:00→21:28)
[2021-07-21] MEDS: NORMAL SALINE FLUSH 10 ML DISP.SYRIN IV SCH ×2 (09:00→21:00)
[2021-07-21] MEDS: CHLORHEXIDINE GLUCONATE 15 ML MOUTHWASH MM SCH ×2 (09:39→17:19)
[2021-07-21] MEDS: COD LIVER OIL/ZINC OXIDE OINT 113 GM TUBE TP SCH ×4 (09:39→21:32)
[2021-07-21] MEDS: ASCORBIC ACID 500 MG TABLET GT SCH ×2 (09:39→21:30)
[2021-07-21] MEDS: POVIDONE-IODINE WASH 236 ML BOTTLE TP SCH ×2 (09:39→21:31)
[2021-07-21] MEDS: MORPHINE SULFATE IR 30 MG TABLET GT SCH ×2 (09:39→21:35)
[2021-07-21] MEDS: NEOMY/BACITRA/POLYMYXIN B OINT UD PACKET TP SCH ×2 (09:40→21:32)
[2021-07-21] MEDS: VITAMINS A AND D OINT TP SCH ×2 (09:40→21:32)
--- NOTE | 2021-07-21 11:00 | NUR ---
Seen and examined By Saumya Aranda,with new orders to hold Eliquis x 48 hs more.
[2021-07-21] MEDS: VANCOMYCIN IV 1,000 MG in IV DEXTROSE 5% 250 ML IV SCH (13:17)
[2021-07-21] MEDS: OXYCODONE IR 10 MG GT PRN (15:17)
[2021-07-21] MEDS: OXYCODONE HCL 10 MG GT PRN (15:36)
--- NOTE | 2021-07-21 17:49 | NUR ---
Eliquis continue to hold. Minimal bleeding noted in the trach. continue to do gentle suction. PRN pain medication given. Pt tolerated it. Pt. stable and no resp. distress. Will continue to monitor.
[2021-07-21] MEDS: SENNOSIDES 1 TABLET GT SCH (21:29)
[2021-07-21] MEDS: MULTIVITAMINS,THERAPEUTIC TABLET GT SCH (21:30)
[2021-07-21] MEDS: DOCUSATE SODIUM 100 MG/10 ML LIQUID UDC GT SCH (21:33)
--- NOTE | 2021-07-21 23:59 | NUR ---
Eliquis via gt is still on hold, still with minimal tracheal bleeding, no blood clots noted. Afebrile, still on Vancomycin IV for sepsis, no adverse reactions noted, handled very gently, suctioned as needed, kept clean and comfortable.
[2021-07-22] MEDS: OMEPRAZOLE 20 MG CAPSULE.DR GT SCH (06:10)
[2021-07-22] MEDS: GABAPENTIN 300 MG CAPSULE GT SCH ×2 (06:10→14:00)
[2021-07-22] MEDS: SODIUM CHLORIDE 1,000 MG TABLET GT SCH ×2 (06:10→14:00)
[2021-07-22] MEDS: MODAFINIL 100 MG TABLET GT SCH (06:10)
--- NOTE | 2021-07-22 07:30 | NUR ---
Patient noted with elevated HR and low BP. VS: B/P 90/54, HR 132, R 18, Temp 98.0F, 94% sat. CN made aware. Administered Oxy PRN for pain. Will cont to monitor.
[2021-07-22] MEDS: OXYCODONE HCL 10 MG GT PRN ×2 (07:40→08:45)
[2021-07-22] MEDS: ONDANSETRON HCL 4 MG TABLET GT PRN (07:45)
--- NOTE | 2021-07-22 07:50 | NUR ---
Patient had x1 episode of vomiting. PRN Zofran given as ordered. CN made aware. Will cont to monitor.
[2021-07-22 08:08] VITALS: BP 90/54
[2021-07-22] MEDS: METOPROLOL TARTRATE 25 MG TABLET GT SCH (08:08)
[2021-07-22] MEDS: CHLORHEXIDINE GLUCONATE 15 ML MOUTHWASH MM SCH ×2 (08:13→17:00)
[2021-07-22] MEDS: ASCORBIC ACID 500 MG TABLET GT SCH (08:13)
[2021-07-22] MEDS: POVIDONE-IODINE WASH 236 ML BOTTLE TP SCH (08:14)
[2021-07-22] MEDS: NEOMY/BACITRA/POLYMYXIN B OINT UD PACKET TP SCH (08:16)
[2021-07-22] MEDS: VITAMINS A AND D OINT TP SCH (08:16)
[2021-07-22] MEDS: COD LIVER OIL/ZINC OXIDE OINT 113 GM TUBE TP SCH ×2 (08:16)
[2021-07-22] MEDS: MORPHINE SULFATE IR 30 MG TABLET GT SCH (08:47)
[2021-07-22] MEDS: HYDROGEN PEROXIDE 3% 118 ML BOTTLE TOP SCH (09:00)
[2021-07-22] MEDS ORDERED: NUTRISOURCE FIBER 4 GM PACKET GT SCH (09:00)
--- NOTE | 2021-07-22 09:00 | NUR ---
All due meds given as ordered. Patient had no further episode of vomiting. Still noted with low BP and elevated HR. O2 sat noted 88 to 94%. CN aware.
[2021-07-22] MEDS: VANCOMYCIN IV 1,000 MG in IV DEXTROSE 5% 250 ML IV SCH (09:48)
[2021-07-22] MEDS: NORMAL SALINE FLUSH 10 ML DISP.SYRIN IV SCH (09:48)
--- NOTE | 2021-07-22 11:45 | NUR ---
Dr Lucas was notified about the patient change of condition ,Hr fluctuates from 128 to 136,o2 sat 75% to 90 %,she vomited x 1 ,milky content large amount,with new orders to transfer to ER for evaluation ,Pt Hoang Jasso notified.Pt transfer by 1 RT and 2 nurses,report given to [place]inder [place].
--- NOTE | 2021-07-22 11:45 | NUR ---
Patient still noted with elevated HR. BP 91/58, HR 128, R 27, Temp 98.9F, O2 sat 90%. CN aware.
[2021-07-22] MEDS ORDERED: ZINC57OI3 TP (12:42)
[2021-07-22] MEDS ORDERED: HYDR237S13 TP (12:42)
[2021-07-22] MEDS ORDERED: POVI30LI TP (12:42)
[2021-07-22] MEDS ORDERED: [UNRECOGNIZED DRUG - CODE] TP (12:42)
[2021-07-22] MEDS ORDERED: WHEA1POW6 GT (12:42)
[2021-07-23] MEDS ORDERED: APIXABAN 2.5 MG TABLET GT SCH (09:00)
== END 2021-07-22 11:45 | disposition admitted as inpatient to this hospital (09) | DRG 133 ==
LOC: SA 16:02 → UNDOLOA 07-22 13:00 → UNDODISIN 07-29 11:45
PROVIDERS: ADMIT Internal Medicine; ATTEND Internal Medicine
DX: J96.11 Chronic respiratory failure with hypoxia (principal); I33.0 Acute and subacute infective endocarditis; G93.40 Encephalopathy, unspecified; E43 Unspecified severe protein-calorie malnutrition; D68.59 Other primary thrombophilia; E11.52 Type 2 diabetes mellitus with diabetic peripheral angiopathy with gangrene; I13.0 Hypertensive heart and chronic kidney disease with heart failure and stage 1 through stage 4 chronic kidney disease, or unspecified chronic kidney disease; D63.8 Anemia in other chronic diseases classified elsewhere; I50.42 Chronic combined systolic (congestive) and diastolic (congestive) heart failure; L89.156 Pressure-induced deep tissue damage of sacral region; E11.22 Type 2 diabetes mellitus with diabetic chronic kidney disease; E11.42 Type 2 diabetes mellitus with diabetic polyneuropathy; L97.509 Non-pressure chronic ulcer of other part of unspecified foot with unspecified severity; D50.9 Iron deficiency anemia, unspecified; J96.12 Chronic respiratory failure with hypercapnia; E11.621 Type 2 diabetes mellitus with foot ulcer; R19.5 Other fecal abnormalities; Z89.431 Acquired absence of right foot; I25.10 Atherosclerotic heart disease of native coronary artery without angina pectoris; I25.2 Old myocardial infarction; I35.1 Nonrheumatic aortic (valve) insufficiency; I69.351 Hemiplegia and hemiparesis following cerebral infarction affecting right dominant side; K29.70 Gastritis, unspecified, without bleeding; N18.9 Chronic kidney disease, unspecified; R13.10 Dysphagia, unspecified; Z85.41 Personal history of malignant neoplasm of cervix uteri; Z85.42 Personal history of malignant neoplasm of other parts of uterus; Z86.711 Personal history of pulmonary embolism; Z20.822 Contact with and (suspected) exposure to COVID-19; Z86.718 Personal history of other venous thrombosis and embolism; Z87.440 Personal history of urinary (tract) infections; Z90.710 Acquired absence of both cervix and uterus; Z93.0 Tracheostomy status; Z93.1 Gastrostomy status; E66.9 Obesity, unspecified
CPT/HCPCS: 36415; 36600; 71045; 83735; 84100; 85025; 86580; 87070; 87077; 97161; A6209; J1815; J3370; J3490; J7060; J8499; Q0162; U0003

== ENCOUNTER 2021-07-22 11:54 | Inpatient (IN) | payer OTHER ==
[~2021-07-22] VITALS: Ht 165.1 cm; Wt 66.7 kg
[2021-07-22] VITALS (21 sets, daily range): BP systolic 94–112; BP diastolic 59–76
[~2021-07-22 11:54] MED LIST changes: -PANT40TA2 PO
--- NOTE | 2021-07-22 12:05 | NUR ---
PATIENT ARRIVED VIA BED FROM [facility]ACUTE. RT AT BEDSIDE. PLACED ON A MONITOR. IV ON LEFT ARM IS CLEAN AND INTACT, FLUSHED WELL WITH NO INCIDENT.
[2021-07-22] MEDS ORDERED: MORPHINE SULFATE 2 MG/1 ML DISP.SYRIN IV ONE (12:15)
[2021-07-22] MEDS ORDERED: IV NORMAL SALINE 1000 ML BAG IV ONE (12:15)
[2021-07-22] MEDS ORDERED: ONDANSETRON 4 MG/2 ML VIAL IV ONE (12:15)
[2021-07-22 12:31] LABS: HEMATOCRIT 25.2 % (31.2-41.9); MEAN CORPUSCULAR HEMOGLOBIN 23.8 uug (24.7-32.8); MEAN CORPUSCULAR VOLUME 76.4 fL (75.5-95.3); PLATELET COUNT (AUTO) 290 K/uL (179-408)
[2021-07-22] MEDS ORDERED: ONDANSETRON 4 MG/2 ML VIAL ONE (12:41)
[2021-07-22] MEDS ORDERED: MORPHINE SULFATE 2 MG/1 ML DISP.SYRIN ONE (12:41)
[2021-07-22] MEDS ORDERED: ZINC57OI3 TP (12:42)
[2021-07-22] MEDS ORDERED: [UNRECOGNIZED DRUG - CODE] TP (12:42)
[2021-07-22] MEDS ORDERED: WHEA1POW6 GT (12:42)
[2021-07-22] MEDS ORDERED: HYDR237S13 TP (12:42)
[2021-07-22] MEDS ORDERED: POVI30LI TP (12:42)
[2021-07-22 13:00] LABS: BILIRUBIN,DIRECT 0.1 mg/dL (0.0-0.2); BILIRUBIN,TOTAL 0.4 mg/dL (0.2-1.0); CREATININE 0.9 mg/dL (0.6-1.3); POTASSIUM 4.7 mmol/L (3.5-5.1); TOTAL PROTEIN, SERUM 7.3 g/dL (6.4-8.2)
[2021-07-22] MEDS ORDERED: PIPERACILLIN SODIUM/TAZOBACTAM 3.375 G in IV DEXTROSE 5% 50 ML IV ONE (13:15)
[2021-07-22] MEDS ORDERED: ADENOSINE 6 MG/2 ML SYR IV ONE ×2 (13:30→13:39)
[2021-07-22] MEDS ORDERED: PIPERACILLIN/TAZOBACTAM/D5W 50 ML IV ONE (13:52)
--- NOTE | 2021-07-22 14:07 | NUR ---
COVID SWAB AND URINE SENT TO LAB.
[2021-07-22 14:12] LABS: *BILIRUBIN,URIN NEGATIVE (NEGATIVE); *COLOR,URINE YELLOW (YELLOW); *KETONES,URINE TRACE (NEGATIVE); *UROBILINOGEN,URINE 0.2 E.U./dl (NORMAL); LEUKOCYTE ESTERASE ,URINE 1+ (NEGATIVE); NITRITE, URINE NEGATIVE (NEGATIVE); UGLUCOSE NEGATIVE (NEGATIVE)
--- NOTE | 2021-07-22 14:20 | NUR ---
IV SITE IS SWOLLEN, FLUSHES WELL, BUT IT IS SWOLLEN. I STOPPED THE IV FLUIDS IMMEDIATELY AND NOTIFIED DR HIDALGO. I PLACED A NEW PERIPHERAL IV ON HER OPPOSITE ARM.
--- NOTE | 2021-07-22 14:21 | NUR ---
MID LINE DC'D, CATHETER TIP INTACT, NO BLEEDING NOTED, STERILE DRESSING APPLIED.
[2021-07-22 14:22] LABS: *BLOOD, URINE TRACE (NEGATIVE)
--- NOTE | 2021-07-22 14:49 | NUR ---
PICC LINE NURSE TO ARRIVE IN 10 MINUTES FOR PICC PLACEMENT. PIV IS WORKING WELL ON RIGHT LOWER ARM BUT WE NEED A BIGGER LINE
[2021-07-22 15:19] LABS: *CLARITY,URINE CLOUDY (CLEAR); BACTERIA,URINE MODERATE /HPF (NONE SEEN); SQUAMOUS EPITHELIAL CELL,UR MODERATE /HPF (NONE SEEN); WBC,URINE 80-100 /HPF (0-3); YEAST,URINE MODERATE /HPF (NONE SEEN)
--- NOTE | 2021-07-22 15:25 | NUR ---
PICC LINE NURSE HERE TO PLACE NEW MID LINE IN OPPOSITE ARM
[2021-07-22] MEDS ORDERED: NOREPINEPHRINE BITARTRATE 32 MG in IV NORMAL SALINE 218 ML IV PRN (15:45)
--- NOTE | 2021-07-22 16:00 | NUR ---
patient placed on a ventilator by RT via trach per Dr Masters
[2021-07-22] MEDS ORDERED: Z GUARD REMEDY PASTE 57 GM TUBE TOP PRN (16:15)
[2021-07-22] MEDS ORDERED: ONDANSETRON 4 MG/2 ML VIAL IV PRN (16:15)
[2021-07-22] MEDS ORDERED: FLUCONAZOLE 400MG /NS 200ML IV 400 MG in PREMIXED 1 EACH IV SCH (16:45)
[2021-07-22 16:51] LABS: ABG BASE EXCESS 3.2 mmol/L; ABG PCO2 27.5 mmHg (35.0-45.0); ABG PH 7.576 (7.350-7.450); ABG PO2 59.4 mmHg (75.0-100.0); ABG SITE LEFT RADIAL; ABG TOTAL HEMOGLOBIN 8.3 G/dL (12.0-16.0); COHb 0.9 % (0.5-1.5); MetHb 0.3 % (0.0-1.5); O2Hb 91.6 % (94.0-97.0); VENT MODE VENT - A/C; VT, ABG 600 mL
--- NOTE | 2021-07-22 16:58 | NUR ---
Levophed at .02/mcg/kg/min Addendum: 07/23/21 at 1917 by TAZADIAN Levophed at .2 mcg/kg/min
--- NOTE | 2021-07-22 16:58 | NUR ---
patient had 560 cc in urine bag that i emptied
[2021-07-22] MEDS: IV NS 1000 ML 1,000 ML IV PRN (17:57)
--- NOTE | 2021-07-22 18:14 | NUR ---
Levophed at .03 mcg/kg/minute. Son at bedside Addendum: 07/23/21 at 1809 by TAZADIAN amendment note: .3 mcg/kg/min
[2021-07-22] MEDS ORDERED: FLUCONAZOLE 200 MG/100 ML PIGGYBACK ONE (18:55)
--- NOTE | 2021-07-22 19:00 | NUR ---
Received patient from [facility]. Patient is awake, nonverbal, open eyes spontaneously, arousable to stimuli; on Trach shiley size 6 hooked to vent settings of AC 18, TV 550, PEEP 5, FiO2 50%; ST on the monitor, in the low 100s, RR=18, EV=931/59, O2 eyi=025%; IV site patent DAVE ML with ongoing Levophed 0.3mcg/kg/min VS done every 15mins, and R wrist with ongoing Diflucan and NS @ 75mls/hr; G tube patent, flushed, and clamped, with no gastric residual, no TF orders for now; merrill catheter draining well to gravity; will continue to monitor closely. Addendum: 07/23/21 at 0246 by Gabbi John RN No acute distress noted. Family member at bedside, report given.
--- NOTE | 2021-07-22 19:22 | NUR ---
Received pt awake, trached with Toyinley#6 DCT trach, which is in place and secure, on Díaz with the following settings of : AC-18, Vt-550, PEEP+5, FIO2-50%. No s/s of respiratory distress noted. Airway care done, pt responded to physical stimuli. Family member was in the room. Resus. bag and back up trach at bedside. Vent and alarms checked and reset.
--- NOTE | 2021-07-22 19:31 | NUR ---
hand off report given to Gabbi SHAY with Alyssa as preceptor
--- NOTE | 2021-07-22 21:00 | NUR ---
Placed SCD sleeves and attached to SCD machine.
[2021-07-22] MEDS: PIPERACILLIN SODIUM/TAZOBACTAM 3.375 G in IV DEXTROSE 5% 50 ML IV SCH (21:14)
[2021-07-22] MEDS: ACETAMINOPHEN 650 MG SUPP.RECT RC PRN (21:38)
[2021-07-22] MEDS ORDERED: IV NORMAL SALINE 250 ML IV PRN (21:45)
[2021-07-22] MEDS ORDERED: ACETAMINOPHEN 650 MG SUPP.RECT RC ONE (21:46)
[2021-07-23] VITALS (28 sets, daily range): BP systolic 93–108; BP diastolic 55–88
--- NOTE | 2021-07-23 00:15 | NUR ---
MRSA swab done and sent to lab.
[2021-07-23] MEDS: PIPERACILLIN SODIUM/TAZOBACTAM 3.375 G in IV DEXTROSE 5% 50 ML IV SCH ×3 (01:06→12:48)
--- NOTE | 2021-07-23 02:00 | NUR ---
Resting comfortably. No significant change of condition noted. Will continue to monitor.
[2021-07-23] MEDS: IV NS 1000 ML 1,000 ML IV PRN (02:58)
--- NOTE | 2021-07-23 04:00 | NUR ---
AM care and bath done. Linen changed.
[2021-07-23] MEDS: ACETAMINOPHEN 650 MG SUPP.RECT RC PRN (04:22)
[2021-07-23] MEDS ORDERED: ACETAMINOPHEN 650 MG SUPP.RECT RC ONE (04:26)
[2021-07-23] MEDS ORDERED: VANCOMYCIN IV 1,000 MG in IV DEXTROSE 5% 250 ML IV SCH (05:00)
[2021-07-23 05:03] LABS: HEMATOCRIT 23.5 % (31.2-41.9); MEAN CORPUSCULAR HEMOGLOBIN 23.8 uug (24.7-32.8); PLATELET COUNT (AUTO) 277 K/uL (179-408)
[2021-07-23 05:14] LABS: CREATININE 1.1 mg/dL (0.6-1.3); MAGNESIUM 2.3 mg/dL (1.8-2.4); PHOSPHOROUS 4.9 mg/dL (2.5-4.9); POTASSIUM 3.8 mmol/L (3.5-5.1)
--- NOTE | 2021-07-23 05:30 | NUR ---
Called EPIC exchange regarding patient's lab results. Awaiting for callback.
--- NOTE | 2021-07-23 05:35 | NUR ---
Spoke with Dr Castillo, with new orders. Noted and carried out.
--- NOTE | 2021-07-23 06:00 | NUR ---
No signs of bleeding noted. Will continue to monitor closely.
--- NOTE | 2021-07-23 06:18 | NUR ---
Left patient with the same vent settings, O2 sat of 100%; still on Levophed drip 0.26mcg/kg/min, AD=307/69; gag and cough reflex present. ST on the monitor, in the low 100s; G tube patent and clamped; merrill catheter draining well to gravity with UO of 400ml; no acute distress noted.
--- NOTE | 2021-07-23 07:05 | NUR ---
Pt received on continuous mechanical ventilator via Shiley 6 trach. Pt is on Díaz vent with ordered settings of AC 18, VT 550, PEEP +5, FIO2 50% Tolerating vent settings well. No signs or symptoms of respiratory distress noted. Suctioned for small amounts bloody secretions. Vent alarm parameters checked, on and audible. Bag/valve/mask and back up trach at bedside. Vent plugged into red emergency outlet. Will continue to monitor.
--- NOTE | 2021-07-23 07:47 | NUR ---
Assumed care of this patient now. 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 Patient is sleeping, in no distress. Vital signs stable. Mid line IV flushing well with no swelling noted. PIV on right hand is flushing well, reinforced dressing.
[2021-07-23] MEDS ORDERED: FUROSEMIDE 20 MG/2 ML VIAL IV SCH (09:30)
[2021-07-23] MEDS ORDERED: FUROSEMIDE 20 MG/2 ML VIAL ONE (09:35)
--- NOTE | 2021-07-23 11:24 | NUR ---
Patient was repositioned
--- NOTE | 2021-07-23 11:55 | NUR ---
I stopped the Levophed briefly to change the bag and tubing, patient's BP dropped, I quickly started the Levophed again and it went back up therefore will not wean Levophed for now.
[2021-07-23] MEDS ORDERED: PIPERACILLIN/TAZOBACTAM/D5W 50 ML IV ONE (12:35)
--- NOTE | 2021-07-23 12:48 | NUR ---
1100 cc of urine emptied from merrill bag
--- NOTE | 2021-07-23 13:05 | NUR ---
Family member at bedside
--- NOTE | 2021-07-23 13:54 | NUR ---
Patient was repositioned
[2021-07-23] MEDS ORDERED: MEROPENEM 1 G in IV NORMAL SALINE 100 ML IV ONE (14:00)
[2021-07-23] MEDS ORDERED: MEROPENEM 1GM/NS 100ML IVPB **ER PYXIS ONLY IV ONE (14:34)
--- NOTE | 2021-07-23 14:59 | NUR ---
PT WII BE TRANSFERED TO [facility] IN THE PM SHIFT PER FLOOR PRESS OPERATOR
--- NOTE | 2021-07-23 14:59 | NUR ---
CLINICAL FAXED TO [facility] PER REQUEST,
--- NOTE | 2021-07-23 15:00 | NUR ---
merepenem was given over 30 minutes, end time was aprox. 1505
--- NOTE | 2021-07-23 15:20 | NUR ---
[facility], ETE 2000
--- NOTE | 2021-07-23 16:05 | NUR ---
second sputum sent to lab. Patient is unable to provide a sputum sample herself, it was collected from her trach via suction
--- NOTE | 2021-07-23 17:19 | NUR ---
Patient continues on IV fluids of NS at 75ml/hr throught shift and Levophed at .26 mcg/kg/minutes at 8.55ml/hr throughout shift
--- NOTE | 2021-07-23 17:25 | NUR ---
Patient was repositioned
--- NOTE | 2021-07-23 17:30 | NUR ---
Gaona bag was emptied, there was 450 cc
--- NOTE | 2021-07-23 18:10 | NUR ---
Lilo elliott in [facility] - 07/23/21 at 1917 by BRIANNAADIAN .2 mcg/kg/min
--- NOTE | 2021-07-23 19:15 | NUR ---
Hand off report given to Urszula SHAY
--- NOTE | 2021-07-23 19:20 | NUR ---
RECEIVED REPORT FROM [facility] PETTIT.
--- NOTE | 2021-07-23 19:27 | NUR ---
[facility] states they do not have an RN/CCT nurse for transport. We called [facility], [facility], [facility] and none of them have CCT transport. Will continue to call for transport. Patient needs isolation ICU bed for R/O TB per ID MD.
--- NOTE | 2021-07-23 20:10 | NUR ---
GAVE REPORT TO [facility] ICU NURSE IN [place].
--- NOTE | 2021-07-23 21:05 | NUR ---
[facility] UNIT [address] AT BEDSIDE WITH RTMaxi MOLINA RN WILL ACCOMPANY AMBULANCE TRANSPORTATION.
--- NOTE | 2021-07-23 21:25 | NUR ---
Patient Tranfers to outside Facility Physician: Shaun Yost Location: [facility] Bed 260.
[2021-07-23] MEDS ORDERED: MEROPENEM 1 G in IV NORMAL SALINE 100 ML IV SCH (22:00)
--- NOTE | 2021-07-23 22:41 | NUR ---
PER DISH CLOTH INSPECTOR, BRAULIO VELAZQUEZ, ASSISSTED CARRIER CLINICRT TRANSFER OF THE PT TO [facility] ACCOMPANIED BY RT FROM [facility], THE PT REMAINED STABLE EN ROUTE, WITH LEVOPHED DRIP RUNNING AT 0.26MCG/KG/MIN, PT TOLERATED WELL, NO WORK OF BREATHING, SEMI MAYA POSITION, THE VSS FOLLOWS: AT BEDSIDE: 2117: 110/72, 109, 19, 100%, FIO2 OF 50%. DEPARTED AT 2134, 2135 113/73, 116, 17,98%, FIO2 50% 2139 115/73, 116, 19, 98% FIO2 100% DUE TO SAT 90-93% 2144 109/73, 109/73, 114,20, 98%, FIO2 100% 2149 124/69, 112, 18,96%, FIO2 100% ARRIVED AT 0955 110/68, 112, 20, UNOBTAINABLE O2 SAT POST TRANSFER CARE RECIEVED BY CHARGE NURSE, AT BEDSIDE AT SOH 2210 130/78,/114,20,99%, FIO2 100%.
== END 2021-07-23 21:25 | disposition short-term general hospital (02) | DRG 720 ==
LOC: ER 11:54 → OBSER 18:28 → TRANSITION 18:33
PROVIDERS: ADMIT Nurse Practitioner Acute Care; ATTEND Nurse Practitioner Acute Care
PROC: 05H533Z Insertion of Infusion Device into Right Subclavian Vein, Percutaneous Approach (ICD-10-PCS; principal; 2021-07-22)
PROC: B546ZZA Ultrasonography of Right Subclavian Vein, Guidance (ICD-10-PCS; principal; 2021-07-22)
PROC: 5A1945Z Respiratory Ventilation, 24-96 Consecutive Hours (ICD-10-PCS; principal; 2021-07-22)
DX: A41.9 Sepsis, unspecified organism (principal); J96.21 Acute and chronic respiratory failure with hypoxia; J69.0 Pneumonitis due to inhalation of food and vomit; R65.21 Severe sepsis with septic shock; I33.0 Acute and subacute infective endocarditis; G93.41 Metabolic encephalopathy; I50.23 Acute on chronic systolic (congestive) heart failure; D68.59 Other primary thrombophilia; E11.52 Type 2 diabetes mellitus with diabetic peripheral angiopathy with gangrene; E43 Unspecified severe protein-calorie malnutrition; I13.0 Hypertensive heart and chronic kidney disease with heart failure and stage 1 through stage 4 chronic kidney disease, or unspecified chronic kidney disease; E11.22 Type 2 diabetes mellitus with diabetic chronic kidney disease; N39.0 Urinary tract infection, site not specified; N18.2 Chronic kidney disease, stage 2 (mild); Z79.4 Long term (current) use of insulin; Z79.01 Long term (current) use of anticoagulants; Z86.711 Personal history of pulmonary embolism; Z86.718 Personal history of other venous thrombosis and embolism; Z90.710 Acquired absence of both cervix and uterus; Z93.0 Tracheostomy status; Z85.42 Personal history of malignant neoplasm of other parts of uterus; Z85.41 Personal history of malignant neoplasm of cervix uteri; Z79.899 Other long term (current) drug therapy; Z93.1 Gastrostomy status; Z95.828 Presence of other vascular implants and grafts; R13.10 Dysphagia, unspecified; I25.10 Atherosclerotic heart disease of native coronary artery without angina pectoris; D50.9 Iron deficiency anemia, unspecified; I69.351 Hemiplegia and hemiparesis following cerebral infarction affecting right dominant side; Z87.820 Personal history of traumatic brain injury; Z89.431 Acquired absence of right foot; I82.421 Acute embolism and thrombosis of right iliac vein; Z87.01 Personal history of pneumonia (recurrent); Z87.440 Personal history of urinary (tract) infections; R04.2 Hemoptysis; I96 Gangrene, not elsewhere classified; I25.2 Old myocardial infarction; K29.70 Gastritis, unspecified, without bleeding; Z20.822 Contact with and (suspected) exposure to COVID-19
CPT/HCPCS: 36415; 36600; 70030-TC; 71045; 83605; 83735; 84100; 84443; 85025; 85730; 86480; 87040; 87070; 87077; 87086; 87400; 87806; 93005; 94002; 94003; 94640; A4217; G0378; J0153; J1450; J1940; J2185; J2270; J2405; J2543; J3370; J3490; J7030; J7050; J7060